=== PATIENT | male | born 1925 | race Caucasian/White ===

== ENCOUNTER 2016-11-02 13:32 | Emergency (ER) | payer MEDICARE ==
[~2016-11-02] VITALS: Ht 185.4 cm; Wt 55.0 kg
[2016-11-02 13:32] VITALS: Ht 185.4 cm; Wt 55.0 kg
--- OUTSIDE RECORDS SUMMARY | 2016-11-02 13:40 | XMS REPORT | Referral Summary ---
Author Author [facility] Organization [facility] Address Unknown Phone Unavailable Care Team Providers Care Microsoft Exchange Administrator Name Role Phone Allan James Primary Care Physician [phone] Encounter VC Date(s): 03/07/15 - 03/07/15 [facility] [address] [place] [id number] [facility] Discharge Diagnosis: Hypothyroid Discharge Disposition: 01-Home or Self Care Attending Physician: Randolph Langston MD Admitting Physician: Randolph Langston MD Vital Signs Most recent to 1 oldest [Reference Range]: Peripheral Pulse 75 bpm Rate [60-100 bpm] (03/07/15 11:15 AM) Blood Pressure 140/80 mmHg [90-140/60-90 mmHg] (03/07/15 11:15 AM) Problem List Condition Effective Dates Status Health Status Informant Hay fever(Confirmed) Resolved IBS(Confirmed) Resolved Obesity(Confirmed) Active patient Osteoarthritis(Confi Resolved rmed) UTI(Confirmed) Resolved Varicella Resolved zoster(Confirmed) Allergies, Adverse Reactions, Alerts Substance Reaction Severity Status acetaminophen Active HYDROcodone Active Medications citalopram 10 mg oral tablet 1 tabs, Oral, Daily, # 30 tabs, 0 Refill(s) Start Date: 02/24/14 Status: Ordered Citracal + D Oral, BID, 0 Refill(s) Start Date: 02/24/14 Status: Ordered Lecithin-Softgels mg, Oral, Daily, 0 Refill(s) Start Date: 02/24/14 Status: Ordered Lipitor 40 mg oral tablet 1 tabs, Oral, Daily, # 30 tabs, 0 Refill(s) Start Date: 02/24/14 Status: Ordered multivitamin Daily, 0 Refill(s) Start Date: 02/24/14 Status: Ordered PriLOSEC 20 mg oral delayed release capsule 1 caps, Oral, Daily, # 30 caps, 0 Refill(s) Start Date: 02/24/14 Status: Ordered Synthroid 50 mcg (0.05 mg) oral tablet See Instructions, TAKE ONE TABLET BY MOUTH EVERY MORNING, # 90 tabs, 9 Refill(s) , [facility], eRx: [facility] #[id number], TAKE ONE TABLET BY MOUTH EVERY MORNING Start Date: 06/14/14 Status: Ordered Vagifem 10 mcg vaginal tablet Vaginal, 2x/Wk, 0 Refill(s) Start Date: 02/24/14 Status: Ordered Results No data available for this section Immunizations No data available for this section Procedures No data available for this section Social History Social History Type Response Smoking Status Never smoker Assessment and Plan Extracted from: Title: Office Visit Note Author: Randolph Langston MD Date: 03/07/15 Assessment/Plan Post ablation hypothyroidism. Plan: Continue Synthroid 50 g daily. Monitor thyroid function tests and titrate Synthroid as indicated. Proper way of taking thyroid medication to optimize absorption explained. Assured about stable and unremarkable thyroid bed exam today. Return to clinic again in one year, sooner if with new problems. Addendum: Patient's blood pressure registered at 140/80. This was repeated with the same reading of 140/80. I suggested getting a blood pressure meter and start checking herself at least twice daily. She can forward readings to Dr. James if systolic persists to be in the 140 rangeand diastolic in the 90 range. Regular exercise and healthier dietary choices encouraged. Advised sodium intake in moderation. Anti-hypertensive regimen may need to be initiated down the road No qualifying data available. Questions addressed. Extracted from: Title: Ambulatory Patient Education Author: Randolph Langston MD Date: 03/07/15 Family Medicine Hypothyroidism The thyroid is a large gland located in the lower front of your neck. The thyroid gland helps control metabolism. Metabolism is how your body handles food. It controls metabolism with the hormone thyroxine. When this gland is underactive (hypothyroid), it produces too little hormone. CAUSES These include: Absence or destruction of thyroid tissue. Goiter due to iodine deficiency. Goiter due to medications. Congenital defects (since ). Problems with the pituitary. This causes a lack of TSH (thyroid stimulating hormone). This hormone tells the thyroid to flange turner more hormone. SYMPTOMS Lethargy (feeling as though you have no energy) Cold intolerance Weight gain (in spite of normal food intake) Dry skin Coarse hair Menstrual irregularity (if severe, may lead to infertility) Slowing of thought processes Cardiac problems are also caused by insufficient amounts of thyroid hormone. Hypothyroidism in the is cretinism, and is an extreme form. It is important that this form be treated adequately and immediately or it will lead rapidly to retarded physical and mental development. DIAGNOSIS To prove hypothyroidism, your caregiver may do blood tests and ultrasound tests. Sometimes the signs are hidden. It may be necessary for your caregiver to watch this illness with blood tests either before or after diagnosis and treatment. TREATMENT Low levels of thyroid hormone are increased by using synthetic thyroid hormone. This is a safe, effective treatment. It usually takes about four weeks to gain the full effects of the medication. After you have the full effect of the medication, it will generally take another four weeks for problems to leave. Your caregiver may start you on low doses. If you have had heart problems the dose may be gradually increased. It is generally not an emergency to get rapidly to normal. HOME CARE INSTRUCTIONS Take your medications as your caregiver suggests. Let your caregiver know of any medications you are taking or start taking. Your caregiver will help you with dosage schedules. As your condition improves, your dosage needs may increase. It will be necessary to have continuing blood tests as suggested by your caregiver. Report all suspected medication side effects to your caregiver. SEEK MEDICAL CARE IF: Seek medical care if you develop: Sweating. Tremulousness (tremors). Anxiety. Rapid weight loss. Heat intolerance. Emotional swings. Diarrhea. Weakness. SEEK IMMEDIATE MEDICAL CARE IF: You develop chest pain, an irregular heart beat (palpitations ), or a rapid heart beat. MAKE SURE YOU: Understand these instructions. Will watch your condition. Will get help right away if you are not doing well or get worse. Document Released: 08/23/2006 Document Revised: 11/14/2012 Document Reviewed: [employer] Patient Information 2014 [employer]. No follow up information was provided.
--- OUTSIDE RECORDS SUMMARY | 2016-11-02 13:41 | XMS REPORT | Continuity of Care Document ---
Author Author [facility] Organization [facility] Address Unknown Phone Unavailable Support Name Relationship Address Phone Micah Chen Caregiver [address] [place] [address] JESUS MANUEL ARAUJO [place] [address] Insurance Providers Payer Name Policy Number Subscriber Name Relationship [employer] [id number] Primitivo Yip 18 Self / Same As Patient [employer] [id number] Primitivo Yip 18 Self / Same As Patient Problems Active Problems Medical Problem Onset Date Status COPD (chronic obstructive pulmonary disease) Unknown Acute Falling Unknown Acute Fracture, rib Unknown Acute Nausea & vomiting Unknown Acute Pain Unknown Acute Prostate cancer Unknown Acute Repeated falls Unknown Acute Swelling of face 01/09/2015 Acute UTI (urinary tract infection) Unknown Acute Medications Current Home Medications Medication Dose Units Route Directions Days/Qty Instructions Start Date Aspirin 81 Mg 81 Mg Oral Daily @89901/09/15 Guaifenesin 1,200 Mg 1,200 Mg Oral Every 12 Hours 01/09/15 Albuterol Sulfate 18 Gm 2 Puffs Inhalation Every 4-6 Hours As Needed 01/09/15 Albuterol Sulfate 2.5 Mg/3 Ml 2.5 Mg Nebulizer Three Times A Day 02/18 Budesonide 0.5 Mg/2 Ml 0.5 Mg Nebulizer Twice A Day 01/09/15 Niacin 500 Mg 2 Tab Oral Daily @89901/09/15 Metoprolol Tartrate 100 Mg 100 Mg Oral Daily @89901/09/15 Ondansetron 4 Mg 4 Mg Oral Every 6 Hours for Nausea 04/21/16 Nitrofurantoin Monohyd/M-Cryst 100 Mg 100 Mg Oral Twice A Day 04/29 Past Home Medications Medication Directions Ordered Status Trimethoprim/Sulfamethoxazole 1 Each Tablet, 1 Each Oral Daily @899 Discontinued Cephalexin 500 Mg Capsule, 500 Mg Oral Three Times A Day 01/09/15 Discontinued Ciprofloxacin Hcl 500 Mg Tablet, 500 Mg Oral Twice A Day 01/16/16 Discontinued Ciprofloxacin Hcl 500 Mg Tablet, 500 Mg Oral Twice A Day 03/24/16 Discontinued Trimethoprim/Sulfamethoxazole 1 Each Tablet, 1 Each Oral Twice A Day Discontinued Ciprofloxacin Hcl 500 Mg Tablet, 500 Mg Oral Twice A Day 04/15/16 Discontinued Hydrocodone/Acetaminophen 5/325 1 Each Tablet, 1 Tab Oral Every 6 Hours as needed for Pain 04/15/16 Discontinued Tramadol Hcl 50 Mg Tablet, 50 Mg Oral Three Times A Day as needed for Pain Discontinued Social History No social history. Hospital Discharge Instructions Current inpatient/outpatient. Discharge instructions are currently unavailable. Plan of Care Prescriptions Functional Status No functional status results. Allergies, Adverse Reactions, Alerts Allergen Type Severity Reaction Status Last Updated Sulfonylureas Allergy Unknown Active 09/04/08 Amoxicillin Allergy Unknown Active 09/04/08 Immunizations Name Given Type ZOSTAVAX 04/08/15 Administered Vital Signs Ambulatory Vital Signs Vital Response Date/Time Height 6 ft 04/21/2016 2:05pm Weight 142 lbs 4 oz 04/21/2016 2:05pm Temperature, Temporal 98.3 degrees F 04/21/2016 2:05pm Blood Pressure, Sitting, Left Arm 130/80 mm Hg 04/21/2016 2:05pm Pulse Rate 68 bpm 04/21/2016 2:05pm Respiration Rate 16 bpm 04/21/2016 2:05pm Body Surface Area 1.80 m2 04/21/2016 2:05pm Body Mass Index 19.3 kg/m2 04/21/2016 2:05pm Pulse Oximetry Pulse Oximetry 04/21/2016 2:05pm Results Laboratory Results Test Name Result Units Flags Reference Collection Date/Time Result Date/ Time Comments White Blood Count 13.39 K/mm3 H 4.5-10.5 02/28/2011 6:47am 02/28/2011 7: 12am Red Blood Count 3.01 M/mm3 L 4.60-6.00 02/28/2011 6:47am 02/28/2011 7: 12am Hemoglobin 9.7 gm/dl L 14.0-18.0 02/28/2011 6:47am 02/28/2011 7:12am Hematocrit 29.1 % L 40-54 02/28/2011 6:47am 02/28/2011 7:12am Mean Corpuscular Volume 96.7 fl H 80-94 02/28/2011 6:47am 02/28/2011 7: 12am Mean Corpuscular Hemoglobin 32 pg 26-32 02/28/2011 6:47am 02/28/2011 7: 12am Mean Corpuscular Hemoglobin Concent 33 g/dl 32-36 02/28/2011 6:47am 7:12am Red Cell Distribution-SD 43.2 fL 35.1-43.9 02/28/2011 6:472010 7:12am RDW Coefficient of Variation 12.7 % 11.5-14.5 02/28/2011 6:472010 7:12am Platelet Count 120 K/mm3 L 150-450 02/28/2011 6:4702/28/2011 7:12am Mean Platelet Volume 10.2 fl 9.4-12.4 02/28/2011 6:4702/28/2011 7: 12am Neutrophils (%) (Auto) 81.0 % H 50-70 02/28/2011 6:4702/28/2011 7: 12am Lymphocytes (%) (Auto) 8.8 % L 18-42 02/28/2011 6:4702/28/2011 7: 12am Monocytes (%) (Auto) 9.9 % 2-11 02/28/2011 6:4702/28/2011 7:12am Eosinophils (%) (Auto) 0.2 % L 1-3 02/28/2011 6:4702/28/2011 7:12am Basophils (%) (Auto) 0.1 % 0-2 02/28/2011 6:4702/28/2011 7:12am Neutrophils # (Auto) 10.8 H 2-8 02/28/2011 6:4702/28/2011 7:12am Lymphocytes # (Auto) 1.2 1-5 02/28/2011 6:4702/28/2011 7:12am Monocytes # (Auto) 1.3 H 0.1-1.0 02/28/2011 6:47am 02/28/2011 7:12am Eosinophils # (Auto) 0.0 0-0.4 02/28/2011 6:47am 02/28/2011 7:12am Basophils # (Auto) 0.0 K/mm3 0-0.2 02/28/2011 6:47am 02/28/2011 7:12am Platelet Estimate NORMAL NORMAL 02/28/2011 6:47am 02/28/2011 7:44am Basophilic Stippling 1+ 02/28/2011 6:47am 02/28/2011 7:44am Random Glucose 102 mg/dL 70-110 02/28/2011 6:47am 02/28/2011 7:41am Blood Urea Nitrogen 7 mg/dL 7-18 02/28/2011 6:47am 02/28/2011 7:41am Creatinine 0.9 mg/dL 0.6-1.3 02/28/2011 6:47am 02/28/2011 7:41am BUN/Creatinine Ratio 7.8 L 12-02/28/2011 6:47am 02/28/2011 7:41am Sodium Level 136 mEq/L 135-155 02/28/2011 6:47am 02/28/2011 7:41am Potassium Level 3.5 mEq/L 3.5-5.1 02/28/2011 6:47am 02/28/2011 7:41am Chloride Level 101 mEq/L 98-107 02/28/2011 6:47am 02/28/2011 7:41am Carbon Dioxide Level 27 mEq/L 21-32 02/28/2011 6:47am 02/28/2011 7: 41am Anion Gap 11.5 10-20 02/28/2011 6:47am 02/28/2011 7:41am Calcium Level 8.6 mg/dL 8.2-10.0 02/28/2011 6:47am 02/28/2011 7:41am Glomerular Filtration Rate Calc 86 02/28/2011 6:47am 02/28/2011 7: 41am At increased risk Risk factors for CKD are present but w/o >90 markers of kidney damage 1 Kidney damage w/ normal or >90 increased GFR 2 Kidney damage w/ mild reduc- 60-89 tion of GFR 3 Moderate reduction of GFR 30-59 4 Severe reduction of GFR 15-29 5 Kidney Failure <15 Total Protein 6.3 gm/dL L 6.4-8.2 02/28/2011 6:47am 02/28/2011 7:41am Albumin 3.0 gm/dL L 3.4-5.0 02/28/2011 6:47am 02/28/2011 7:41am Albumin/Globulin Ratio 0.9 02/28/2011 6:47am 02/28/2011 7:41am Total Bilirubin 0.75 mg/dL 0.2-1.0 02/28/2011 6:47am 02/28/2011 7:41am Aspartate Amino Transf (AST/SGOT) 24 U/L 15-37 02/28/2011 6:47am 2010 7:41am Alanine Aminotransferase (ALT/SGPT) 27 U/L L 30-65 02/28/2011 6:47am 7:41am Alkaline Phosphatase 84.0 U/L 50-136 02/28/2011 6:47am 02/28/2011 7: 41am Globulin 3.3 gm/dL 2.0-4.5 02/28/2011 6:47am 02/28/2011 7:41am White Blood Count 9.13 K/mm3 4.5-10.5 01/09/2015 9:01/09/2015 11: 40am Red Blood Count 3.90 M/mm3 L 4.60-6.00 01/09/2015 9:01/09/2015 11: 40am Hemoglobin 13.2 gm/dl L 14.0-18.0 01/09/2015 9:01/09/2015 11:40am Hematocrit 38.9 % L 40-54 01/09/2015 9:01/09/2015 11:40am Mean Corpuscular Volume 99.7 fl H 80-94 01/09/2015 9:01/09/2015 11: 40am Mean Corpuscular Hemoglobin 34 pg H 26-32 01/09/2015 9:01/09/2015 11:40am Mean Corpuscular Hemoglobin Concent 34 g/dl 32-36 01/09/2015 9:02/2015 11:40am Red Cell Distribution-SD 45.1 fL H 35.1-43.9 01/09/2015 9:2014 11:40am RDW Coefficient of Variation 12.8 % 11.5-14.5 01/09/2015 9:2014 11:40am Platelet Count 177 K/mm3 150-450 01/09/2015 9:01/09/2015 11:40am Mean Platelet Volume 9.8 fl 9.4-12.4 01/09/2015 9:01/09/2015 11: 40am Neutrophils (%) (Auto) 72.5 % H 50-70 01/09/2015 9:01/09/2015 11: 40am Lymphocytes (%) (Auto) 17.0 % L 18-42 01/09/2015 9:01/09/2015 11: 40am Monocytes (%) (Auto) 8.0 % 2-11 01/09/2015 9:01/09/2015 11:40am Eosinophils (%) (Auto) 2.2 % 1-3 01/09/2015 9:01/09/2015 11:40am Basophils (%) (Auto) 0.3 % 0-2 01/09/2015 9:01/09/2015 11:40am Neutrophils # (Auto) 6.6 2-8 01/09/2015 9:01/09/2015 11:40am Lymphocytes # (Auto) 1.6 1-5 01/09/2015 9:01/09/2015 11:40am Monocytes # (Auto) 0.7 0.1-1.0 01/09/2015 9:01/09/2015 11:40am Eosinophils # (Auto) 0.2 0-0.4 01/09/2015 9:01/09/2015 11:40am Basophils # (Auto) 0.0 K/mm3 0-0.2 01/09/2015 9:01/09/2015 11: 40am Random Glucose 79 mg/dL 70-110 01/09/2015 9:01/09/2015 11:07am Blood Urea Nitrogen 11 mg/dL 7-18 01/09/2015 9:01/09/2015 11:07am Creatinine 1.2 mg/dL 0.6-1.3 01/09/2015 9:01/09/2015 11:07am BUN/Creatinine Ratio 9.2 L 12-30 01/09/2015 9:01/09/2015 11:07am Sodium Level 130 mEq/L L 135-155 01/09/2015 9:01/09/2015 11:07am Potassium Level 4.9 mEq/L 3.5-5.1 01/09/2015 9:01/09/2015 11:07am Chloride Level 94 mEq/L L 98-107 01/09/2015 9:01/09/2015 11:07am Carbon Dioxide Level 32 mEq/L 21-32 01/09/2015 9:01/09/2015 11: 07am Anion Gap 8.9 L 10-20 01/09/2015 9:01/09/2015 11:07am Calcium Level 8.7 mg/dL 8.2-10.0 01/09/2015 9:01/09/2015 11:07am Glomerular Filtration Rate Calc 61 01/09/2015 9:24am 01/09/2015 11: 07am At increased risk Risk factors for CKD are present but w/o >90 markers of kidney damage 1 Kidney damage w/ normal or >90 increased GFR 2 Kidney damage w/ mild reduc- 60-89 tion of GFR 3 Moderate reduction of GFR 30-59 4 Severe reduction of GFR 15-29 5 Kidney Failure <15 Total Protein 7.6 gm/dL 6.4-8.2 01/09/2015 9:24am 01/09/2015 11:07am Albumin 3.8 gm/dL 3.4-5.0 01/09/2015 9:24am 01/09/2015 11:07am Albumin/Globulin Ratio 1.0 01/09/2015 9:24am 01/09/2015 11:07am Total Bilirubin 0.47 mg/dL 0.2-1.0 01/09/2015 9:24am 01/09/2015 11: 07am Aspartate Amino Transf (AST/SGOT) 23 U/L 15-37 01/09/2015 9:24am 2014 11:07am Alanine Aminotransferase (ALT/SGPT) 21 U/L 12-78 01/09/2015 9:24am 02/2015 11:07am NOTE REFERENCE RANGE CHANGE 03/07/12 REFERENCE RANGE CHANGE DUE TO NEW REAGENT PREVIOUS RANGE: 30-65 U/L NEW RANGE: 12-78 U/L Alkaline Phosphatase 84.0 U/L 46-116 01/09/2015 9:24am 01/09/2015 11: 07am NOTE REFERENCE RANGE CHANGE 02/08/14 REFERENCE RANGE CHANGE DUE TO NEW REAGENT PREVIOUS RANGE: 50-136 U/L NEW RANGE: 46-116 U/L Globulin 3.8 gm/dL 2.0-4.5 01/09/2015 9:24am 01/09/2015 11:07am Urine Culture Result 1 Growth detected H NONE 01/16/2016 K 2015 6:39am Urine Culture Result 3 Growth detected H NONE 01/16/2016 K 2015 6:39am Urine Culture (LAB) See Separate Report 01/16/2016 K 01/19/2016 1 :18pm Urine Culture Result 1 Growth detected H NONE 03/24/2016 8:54am 2015 7:05am Urine Culture Result 3 Growth detected H NONE 03/24/2016 8:54am 2015 7:05am Urine Culture (LAB) See Separate Report 03/24/2016 8:54am 2015 1:58pm Urine Color STRAW STRAW 04/08/2016 9:23am 04/08/2016 9:44am Urine Appearance CLEAR CLEAR 04/08/2016 9:23am 04/08/2016 9:44am Urine Glucose (UA) NEGATIVE mg/dL NEGATIVE 04/08/2016 9:23am 2015 9:44am Urine Bilirubin NEGATIVE NEGATIVE 04/08/2016 9:23am 04/08/2016 9: 44am Urine Ketones NEGATIVE mg/dL NEGATIVE 04/08/2016 9:23am 04/08/2016 9: 44am Urine Specific [place] 1.015 1.005-1.035 04/08/2016 9:23am 2015 9:44am Urine Occult Blood 1+ SMALL H NEGATIVE 04/08/2016 9:2304/08/2016 9: 44am Urine pH 7.0 04/08/2016 9:23am 04/08/2016 9:44am Urine Protein TRACE mg/dL H NEGATIVE 04/08/2016 9:23am 04/08/2016 9: 44am Urine Urobilinogen 0.2 E.U./dL NORMAL 04/08/2016 9:23am 04/08/2016 9: 44am Urine Nitrate NEGATIVE NEGATIVE 04/08/2016 9:23am 04/08/2016 9:44am Urine Leukocyte Esterase 1+ SMALL H NEGATIVE 04/08/2016 9:23am 2015 9:44am URINE HAS BEEN SENT FOR CULTURE Urine RBC 0-1 /hpf H NONE 04/08/2016 9:23am 04/08/2016 9:44am Urine WBC 3-5 /hpf H NONE 04/08/2016 9:23am 04/08/2016 9:44am Urine Squamous Epithelial Cells NONE /lpf OCCASSIONAL 04/08/2016 9:23am 04/08/2016 9:44am Urine Bacteria MANY /hpf H NONE 04/08/2016 9:23am 04/08/2016 9:44am Urine Mucus FEW /lpf H NONE 04/08/2016 9:23am 04/08/2016 9:44am Urine Yeast FEW /hpf H NONE 04/08/2016 9:23am 04/08/2016 9:44am Urine Culture Result 1 No Growth at 12hrs NONE 04/08/2016 9:23am 12/2015 6:08am Urine Culture Result 2 Growth detected H NONE 04/08/2016 9:23am 2015 5:02pm Urine Culture Result 3 Growth detected H NONE 04/08/2016 9:23am 2015 5:02pm Urine Culture (LAB) See Separate Report 04/08/2016 9:23am 2015 4:15pm URINE FOR CYTOLOGY See Separate Report 04/08/2016 11:32am 2015 10:17am White Blood Count 8.30 K/mm3 4.5-10.5 04/18/2016 12:40pm 04/18/2016 12: 55pm Red Blood Count 3.90 M/mm3 L 4.60-6.00 04/18/2016 12:40pm 04/18/2016 12: 55pm Hemoglobin 12.5 gm/dl L 14.0-18.0 04/18/2016 12:40pm 04/18/2016 12:55pm Hematocrit 36.6 % L 40-54 04/18/2016 12:40pm 04/18/2016 12:55pm Mean Corpuscular Volume 93.8 fl 80-94 04/18/2016 12:40pm 04/18/2016 12: 55pm Mean Corpuscular Hemoglobin 32 pg 26-32 04/18/2016 12:40pm 04/18/2016 12:55pm Mean Corpuscular Hemoglobin Concent 34 g/dl 32-36 04/18/2016 12:40pm 12:55pm Red Cell Distribution-SD 44.3 fL H 35.1-43.9 04/18/2016 12:40pm 2015 12:55pm RDW Coefficient of Variation 13.2 % 11.5-14.5 04/18/2016 12:40pm 2015 12:55pm Platelet Count 179 K/mm3 150-450 04/18/2016 12:40pm 04/18/2016 12:55pm Mean Platelet Volume 9.2 fl L 9.4-12.4 04/18/2016 12:40pm 04/18/2016 12: 55pm Neutrophils (%) (Auto) 77.5 % H 50-70 04/18/2016 12:40pm 04/18/2016 12: 55pm Lymphocytes (%) (Auto) 11.0 % L 18-42 04/18/2016 12:40pm 04/18/2016 12: 55pm Monocytes (%) (Auto) 10.4 % 2-11 04/18/2016 12:40pm 04/18/2016 12:55pm Eosinophils (%) (Auto) 1.0 % 1-3 04/18/2016 12:40pm 04/18/2016 12:55pm Basophils (%) (Auto) 0.1 % 0-2 04/18/2016 12:40pm 04/18/2016 12:55pm Neutrophils # (Auto) 6.4 2-8 04/18/2016 12:40pm 04/18/2016 12:55pm Lymphocytes # (Auto) 0.9 L 1-5 04/18/2016 12:40pm 04/18/2016 12:55pm Monocytes # (Auto) 0.9 0.1-1.0 04/18/2016 12:40pm 04/18/2016 12:55pm Eosinophils # (Auto) 0.1 0-0.4 04/18/2016 12:40pm 04/18/2016 12:55pm Basophils # (Auto) 0.0 K/mm3 0-0.2 04/18/2016 12:40pm 04/18/2016 12: 55pm Urine Color YELLOW STRAW 04/18/2016 12:30pm 04/18/2016 12:58pm Urine Appearance SL CLOUDY CLEAR 04/18/2016 12:30pm 04/18/2016 12: 58pm Urine Glucose (UA) NEGATIVE mg/dL NEGATIVE 04/18/2016 12:30pm 2015 12:58pm Urine Bilirubin NEGATIVE NEGATIVE 04/18/2016 12:30pm 04/18/2016 12: 58pm Urine Ketones NEGATIVE mg/dL NEGATIVE 04/18/2016 12:30pm 04/18/2016 12: 58pm Urine Specific [place] 1.015 1.005-1.035 04/18/2016 12:30pm 2015 12:58pm Urine Occult Blood 1+ SMALL H NEGATIVE 04/18/2016 12:30pm 04/18/2016 12:58pm Urine pH 7.0 04/18/2016 12:30pm 04/18/2016 12:58pm Urine Protein 1+ 30 mg/dL mg/dL H NEGATIVE 04/18/2016 12:30pm 2015 12:58pm Urine Urobilinogen 1.0 E.U./dL H NORMAL 04/18/2016 12:30pm 04/18/2016 12 :58pm Urine Nitrate NEGATIVE NEGATIVE 04/18/2016 12:30pm 04/18/2016 12: 58pm Urine Leukocyte Esterase 3+ LARGE H NEGATIVE 04/18/2016 12:30pm 2015 12:58pm URINE HAS BEEN SENT FOR CULTURE Urine RBC 1-2 /hpf H NONE 04/18/2016 12:30pm 04/18/2016 12:58pm Urine WBC 15-20 /hpf H NONE 04/18/2016 12:30pm 04/18/2016 12:58pm Urine Squamous Epithelial Cells NONE /lpf OCCASSIONAL 04/18/2016 12: 30pm 04/18/2016 12:58pm Urine Bacteria MODERATE /hpf H NONE 04/18/2016 12:30pm 04/18/2016 12: 58pm Urine Amorphous Sediment FEW /hpf H NONE 04/18/2016 12:30pm 04/18/2016 12:58pm Random Glucose 84 mg/dL 70-110 04/18/2016 12:40pm 04/18/2016 1:06pm Blood Urea Nitrogen 16 mg/dL 7-18 04/18/2016 12:40pm 04/18/2016 1:06pm Creatinine 1.03 mg/dL 0.550-1.3 04/18/2016 12:40pm 04/18/2016 1:06pm NOTE REFERENCE RANGE CHANGE 03/05/15 REFERENCE RANGE CHANGE DUE TO NEW REAGENT PREVIOUS RANGE: 0.6-1.3 mg/dL NEW RANGE: 0.550-1.3 mg/dL BUN/Creatinine Ratio 15.53 1230 04/18/2016 12:40pm 04/18/2016 1: 06pm Sodium Level 121 mEq/L L 135-155 04/18/2016 12:40pm 04/18/2016 1:06pm Potassium Level 4.3 mEq/L 3.5-5.1 04/18/2016 12:40pm 04/18/2016 1:06pm Chloride Level 88 mEq/L L 98-107 04/18/2016 12:40pm 04/18/2016 1:06pm Carbon Dioxide Level 26 mEq/L 21-32 04/18/2016 12:40pm 04/18/2016 1: 06pm Anion Gap 11.3 10-20 04/18/2016 12:40pm 04/18/2016 1:06pm Calcium Level 8.5 mg/dL 8.2-10.0 04/18/2016 12:40pm 04/18/2016 1:06pm Glomerular Filtration Rate Calc 72 04/18/2016 12:40pm 04/18/2016 1: 06pm At increased risk Risk factors for CKD are present but w/o >90 markers of kidney damage 1 Kidney damage w/ normal or >90 increased GFR 2 Kidney damage w/ mild reduc- 60-89 tion of GFR 3 Moderate reduction of GFR 30-59 4 Severe reduction of GFR 15-29 5 Kidney Failure <15 Total Protein 7.4 gm/dL 6.4-8.2 04/18/2016 12:40pm 04/18/2016 1:06pm Albumin 3.6 gm/dL 3.4-5.0 04/18/2016 12:40pm 04/18/2016 1:06pm Albumin/Globulin Ratio 0.9 04/18/2016 12:40pm 04/18/2016 1:06pm Total Bilirubin 0.64 mg/dL 0.2-1.0 04/18/2016 12:40pm 04/18/2016 1: 06pm Aspartate Amino Transf (AST/SGOT) 64 U/L H 15-37 04/18/2016 12:40pm 1:06pm Alanine Aminotransferase (ALT/SGPT) 57 U/L 12-78 04/18/2016 12:40pm 1:06pm Alkaline Phosphatase 111.0 U/L 46-116 04/18/2016 12:40pm 04/18/2016 1: 06pm Urine Culture Result 1 No Growth at 12hrs NONE 04/18/2016 12:30pm 7:06am Urine Culture Result 2 No Growth @ 24hrs NONE 04/18/2016 12:30pm 6:05pm Urine Culture Result 3 Growth detected H NONE 04/18/2016 12:30pm 04/20 6:53am Globulin 3.8 gm/dL 2.0-4.5 04/18/2016 12:40pm 04/18/2016 1:06pm Urine Culture (LAB) See Separate Report 04/18/2016 12:30pm 2015 1:18pm Urine Color YELLOW STRAW 04/29/2016 12:02pm 04/29/2016 12:17pm Urine Appearance CLOUDY CLEAR 04/29/2016 12:02pm 04/29/2016 12:17pm Urine Glucose (UA) NEGATIVE mg/dL NEGATIVE 04/29/2016 12:02pm 2015 12:17pm Urine Bilirubin NEGATIVE NEGATIVE 04/29/2016 12:02pm 04/29/2016 12: 17pm Urine Ketones NEGATIVE mg/dL NEGATIVE 04/29/2016 12:02pm 04/29/2016 12: 17pm Urine Specific [place] 1.020 1.005-1.035 04/29/2016 12:02pm 2015 12:17pm Urine Occult Blood 1+ SMALL H NEGATIVE 04/29/2016 12:02pm 04/29/2016 12:17pm Urine pH 7.0 04/29/2016 12:02pm 04/29/2016 12:17pm Urine Protein 2+ 100 mg/dL mg/dL H NEGATIVE 04/29/2016 12:02pm 2015 12:17pm Urine Urobilinogen 1.0 E.U./dL H NORMAL 04/29/2016 12:02pm 04/29/2016 12 :17pm Urine Nitrate POSITIVE H NEGATIVE 04/29/2016 12:02pm 04/29/2016 12: 17pm URINE HAS BEEN SENT FOR CULTURE Urine Leukocyte Esterase 2+ MODERATE H NEGATIVE 04/29/2016 12:02pm 12:17pm URINE HAS BEEN SENT FOR CULTURE Urine RBC 15-20 /hpf H NONE 04/29/2016 12:02pm 04/29/2016 12:17pm Urine WBC 50+ /hpf H NONE 04/29/2016 12:02pm 04/29/2016 12:17pm Urine Squamous Epithelial Cells OCCASSIONAL /lpf OCCASSIONAL 04/29/2016 12:02pm 04/29/2016 12:17pm Urine Bacteria MODERATE /hpf H NONE 04/29/2016 12:02pm 04/29/2016 12: 17pm Urine Hyaline Casts 1-2 /lpf H NONE 04/29/2016 12:02pm 04/29/2016 12: 17pm Urine Fine Granular Casts 0-1 /lpf H NONE 04/29/2016 12:02pm 04/29/2016 12:17pm Urine Mucus OCCASSIONAL /lpf H NONE 04/29/2016 12:02pm 04/29/2016 12: 17pm Urine Culture Result 1 Growth detected H NONE 04/29/2016 12:02pm 04/30 6:22am Urine Culture Result 3 Growth detected H NONE 04/29/2016 12:02pm 04/30 6:22am Urine Culture (LAB) See Separate Report 04/29/2016 12:02pm 2015 1:44am Procedures No known history of procedures. Encounters Encounter Location Arrival/Admit Date Discharge/Depart Date Attending Provider Registered Recurring [facility] 05/04/16 7:26pm Micah Chen Registered Clinic [facility] 04/29/16 11:41am Micah Chen Office Visit [facility] 04/21/16 2:00pm Micah Chen PA Registered Practice [facility] 04/21/16 2:00pm Micah Chen PA Discharged Inpatient (obs) [facility] 04/18/16 1:50pm 6:00pm Librado Perales DO Departed Emergency Room [facility] 04/18/16 10:58am 1:50pm Librado Perales DO Office Visit [facility] 04/15/16 1:00pm Micah Chen Departed Clinic [facility] 04/15/16 12:26pm 04/15/16 11: 59pm Micah Chen PA Departed Clinic [facility] 04/08/16 11:18am 04/08/16 11: 59pm Riya Gallegos Departed Clinic [facility] 04/08/16 9:20am 04/08/16 11: 59pm Riya Gallegos Office Visit [facility] 04/08/16 8:30am Riya Gallegos Departed Clinic [facility] 03/24/16 8:54am 03/24/16 11: 59pm Micah Chen PA Departed Clinic [facility] 03/24/16 8:34am 03/24/16 11: 59pm Micah Chen PA Office Visit [facility] 03/24/16 8:30am Micah Chen PA Departed Clinic [facility] 01/16/16 2:37pm 01/16/16 11: 59pm Micah Chen PA Departed Clinic [facility] 01/16/16 2:24pm 01/16/16 11: 59pm Micah Chen PA Office Visit [facility] 01/16/16 2:15pm Micah Chen PA Departed Clinic [facility] 01/09/15 9:18am 01/09/15 11: 59pm Micah Chen PA Office Visit [facility] 01/09/15 8:45am Micah Chen PA Office Visit [facility] 03/16/11 10:00am Micah Chen PA Discharged Inpatient (obs) [facility] 02/28/11 2:00am 31/07 11:50am Johnathon Dallas MD Departed Emergency Room [facility] 02/28/11 12:46am 2:00am Johnathon Dallas MD Registered Surgical Day Care [facility] 10/12/07 1:46pm
--- OUTSIDE RECORDS SUMMARY | 2016-11-02 13:41 | XMS REPORT | Continuity of Care Document ---
Author Author [facility] Organization [facility] Address Unknown Phone Unavailable Support Name Relationship Address Phone Librado Perales DO Caregiver [address] [place] [address] JESUS MANUEL [place] [address] Insurance Providers Payer Name Policy Number Subscriber Name Relationship s Medicare [id number] Primitivo Yip 18 Self / Same As Patient [facility] Employee [facility] [id number] Primitivo Yip 18 Self / Same As Patient Chief Complaint and Reason for Visit Reason for Visit Nausea & vomiting Pain Prostate cancer Repeated falls Swelling of face UTI (urinary tract infection) Problems Active Problems Medical Problem Onset Date [...] Mg Oral Every 6 Hours for Nausea 10 04/16/16 Past Home Medications Medication Directions Ordered Status [...] as needed for Pain Discontinued Social History Query Response Start Date Stop Date Smoking Status Current every day smoker Hospital Discharge Instructions PHYSICIAN DISCHARGE ORDERS Homecare Instructions ACTIVITY ORDERS: Activity Comment: USE WALKER FOR WALKING AT ALL TIMES. Activity: Normal activity as carla Other DIET ORDERS: Diet: Other Comment: REGULAR DIET WITH ENSURE SHAKE WITH BREAKFAST AND TWICE A DAY BETWEEN MEALS. Home Health: Home Health: [facility] WEIGHT MONITORING: Weight Monitoring: Weekly Take Wt. Log to visit Plan of Care Discharge Date 04/19/16 6:00pm Disposition HOME with HOME HEALTH SERVICES Instructions/Education Provided Urinary Tract Infection in Men (DC) Fall Prevention (DC) COPD Exacerbation, Tobacco Curer (GEN) Prescriptions See Medication Section Referrals MAGALY TABOR M.D. (Medical) - IN 2 DAYS Address: [address] [place] [id number] Reason(s) for Referral: Repeated falls Prostate cancer COPD (chronic obstructive pulmonary disease) Pain Fracture, rib UTI (urinary tract infection) Care Plan and Goals Functional Status No functional status results. Allergies, Adverse Reactions, Alerts Allergen Type Severity Reaction Status Last Updated Sulfonylureas Allergy Unknown Active 09/04/08 Amoxicillin Allergy Unknown Active 09/04/08 Immunizations Name Given Type ZOSTAVAX 04/08/15 Administered Vital Signs Acute Vital Signs Vital Response Date/Time Height 6 ft 0 in Weight 131 lb Body Mass Index 17.8 kg/m^2 Ambulatory Vital Signs Vital Response Date/Time Height 6 ft 04/15/2016 12:50pm Weight 143 lbs 4 oz 04/15/2016 12:50pm Temperature, Temporal 97.9 degrees F 04/15/2016 12:50pm Blood Pressure, Sitting, Left Arm 124/80 mm Hg 04/15/2016 12:50pm Pulse Rate 64 bpm 04/15/2016 12:50pm Respiration Rate 14 bpm 04/15/2016 12:50pm Body Surface Area 1.81 m2 04/15/2016 12:50pm Body Mass Index 19.4 kg/m2 04/15/2016 12:50pm Pulse Oximetry Pulse Oximetry 04/15/2016 12:50pm Results Laboratory Results Test Name Result Units [...] Red Cell Distribution-SD 43.2 fL 35.1-43.9 02/28/2011 6:47am 2010 7:12am RDW Coefficient of Variation 12.7 % 11.5-14.5 02/28/2011 6:47am 2010 7:12am Platelet Count 120 K/mm3 L 150-450 02/28/2011 6:47am 02/28/2011 7:12am Mean Platelet Volume 10.2 fl 9.4-12.4 02/28/2011 6:47am 02/28/2011 7: 12am Neutrophils (%) (Auto) 81.0 % H 50-70 02/28/2011 6:47am 02/28/2011 7: 12am Lymphocytes (%) (Auto) 8.8 % L 18-42 02/28/2011 6:47am 02/28/2011 7: 12am Monocytes (%) (Auto) 9.9 % 2-11 02/28/2011 6:47am 02/28/2011 7:12am Eosinophils (%) (Auto) 0.2 % L 1-3 02/28/2011 6:47am 02/28/2011 7:12am Basophils (%) (Auto) 0.1 % 0-2 02/28/2011 6:47am 02/28/2011 7:12am Neutrophils # (Auto) 10.8 H 2-8 02/28/2011 6:47am 02/28/2011 7:12am Lymphocytes # (Auto) 1.2 1-5 02/28/2011 6:47am 02/28/2011 7:12am Monocytes # (Auto) 1.3 H 0.1-1.0 02/28/2011 6:47am 02/28/2011 7:12am Eosinophils # (Auto) 0.0 0-0.4 02/28/2011 6:47am 02/28/2011 7:12am Basophils # (Auto) 0.0 K/mm3 0-0.2 02/28/2011 6:47am 02/28/2011 7:12am Platelet Estimate NORMAL NORMAL 02/28/2011 6:4702/28/2011 7:44am Basophilic Stippling 1+ 02/28/2011 6:47am 02/28/2011 7:44am Random Glucose 102 mg/dL 70-110 02/28/2011 6:47am 02/28/2011 7:41am Blood Urea Nitrogen 7 mg/dL 7-18 02/28/2011 6:4702/28/2011 7:41am Creatinine 0.9 mg/dL 0.6-1.3 02/28/2011 6:4702/28/2011 7:41am BUN/Creatinine Ratio 7.8 L 12-02/28/2011 6:4702/28/2011 7:41am Sodium Level 136 mEq/L 135-155 02/28/2011 6:47am 02/28/2011 7:41am Potassium Level 3.5 mEq/L 3.5-5.1 02/28/2011 6:4702/28/2011 7:41am Chloride Level 101 mEq/L 98-107 02/28/2011 [...] 11:07am BUN/Creatinine Ratio 9.2 L 12-30 01/09/2015 9:24am 01/09/2015 11:07am Sodium Level 130 mEq/L L 135-155 01/09/2015 9:24am 01/09/2015 11:07am Potassium Level 4.9 mEq/L 3.5-5.1 01/09/2015 9:24am 01/09/2015 11:07am Chloride Level 94 mEq/L L 98-107 01/09/2015 9:24am 01/09/2015 11:07am Carbon Dioxide Level 32 mEq/L 21-32 01/09/2015 9:24am 01/09/2015 11: 07am Anion Gap 8.9 L 10-20 01/09/2015 9:24am 01/09/2015 11:07am Calcium Level 8.7 mg/dL 8.2-10.0 01/09/2015 9:24am 01/09/2015 11:07am Glomerular Filtration Rate Calc 61 01/09/2015 [...] Urine Culture (LAB) See Separate Report 01/16/2016 UNK 01/19/2016 1 :18pm Urine Culture Result 1 [...] 04/08/2016 9:23am 04/08/2016 9: 44am Urine Specific Ashley 1.015 1.005-1.035 04/08/2016 9:23am 2015 9:44am Urine Occult Blood 1+ SMALL H NEGATIVE 04/08/2016 9:23am 04/08/2016 9: 44am Urine pH 7.0 04/08/2016 9:23am [...] 04/18/2016 12:30pm 04/18/2016 12: 58pm Urine Specific Ashley 1.015 1.005-1.035 04/18/2016 12:30pm 2015 12:58pm Urine [...] NEW RANGE: 0.550-1.3 mg/dL BUN/Creatinine Ratio 15.53 09-0404/18/2016 12:40pm 04/18/2016 1: 06pm Sodium Level 121 [...] Growth @ 24hrs NONE 04/18/2016 12:30pm 6:05pm Globulin 3.8 gm/dL 2.0-4.5 04/18/2016 12:40pm 04/18/2016 1:06pm Procedures No known history of procedures. Encounters Encounter Location Arrival/Admit Date Discharge/Depart Date Attending Provider Discharged Inpatient (obs) [facility] 04/18/16 1:50pm 6:00pm Librado Perales DO Departed Emergency Room [facility] 04/18/16 10:58am 1:50pm Librado Perales DO Office Visit [facility] 04/15/16 1:00pm Micah Chen Registered Practice [facility] 04/15/16 1:00pm Micah Chen Registered Clinic [facility] 04/15/16 12:26pm Micah Chen Departed Clinic [facility] 04/08/16 11:18am 04/08/16 11: 59pm Riya Gallegos Departed Clinic [facility] 04/08/16 9:20am 04/08/16 11: 59pm Riya Gallegos Office Visit [facility] 04/08/16 8:30am Riya Gallegos Departed Clinic [facility] 03/24/16 8:54am 03/24/16 11: 59pm Micah Chen Departed Clinic [facility] 03/24/16 8:34am 03/24/16 11: 59pm Micah Chen PA Office Visit [facility] 03/24/16 8:30am Micah Chen PA Departed Clinic [facility] 01/16/16 2:37pm 01/16/16 11: 59pm Micah Chen Departed Clinic [facility] 01/16/16 2:24pm 01/16/16 11: 59pm Micah Chen PA Office Visit [facility] 01/16/16 2:15pm Micah Chen Departed Clinic [facility] 01/09/15 9:18am 01/09/15 11: 59pm Micah Chen PA Office Visit [facility] 01/09/15 8:45am Micah Chen PA Office Visit [facility] 03/16/11 10:00am Micah Chen PA Discharged Inpatient (obs) [facility] 02/28/11 2:00am 31/07 11:50am Johnathon Dallas MD Departed Emergency Room [facility] 02/28/11 12:46am 2:00am Johnathon Dallas MD Registered Surgical Day Care [facility] 10/12/07 1:46pm Recent Diagnosis Nausea & vomiting Pain Prostate cancer Repeated falls Swelling of face UTI (urinary tract infection)
--- OUTSIDE RECORDS SUMMARY | 2016-11-02 13:41 | XMS REPORT | Continuity of Care Document ---
Author Author [facility] Organization [facility] Address Unknown Phone Unavailable Support Name Relationship Address Phone FLORENTINO ERICKSON DO Caregiver [address] [place] [address] JESUS MANUEL [place] [address] Insurance Providers Payer Name Policy Number Subscriber Name Relationship Wps Medicare [id number] [employer] Yip 18 Self / Same As Patient [employer] [id number] [employer] Yip 18 Self / Same As Patient Problems Active Problems Medical Problem Onset Date Status C. difficile diarrhea Unknown Acute COPD (chronic obstructive pulmonary disease) Unknown Acute Diarrhea Unknown Acute Falling Unknown Acute Fracture, rib Unknown Acute Nausea & vomiting Unknown Acute Pain Unknown Acute Prostate cancer Unknown Acute Repeated falls Unknown Acute Swelling of face 01/09/2015 Acute UTI (urinary tract infection) Unknown Acute Weakness Unknown Acute Medications Current Home Medications Medication Dose Units Route Directions Days/Qty Instructions Start Date Aspirin 81 Mg 81 Mg Oral Daily @0900 01/09/15 Albuterol Sulfate 18 Gm 2 Puffs Inhalation Every 4-6 Hours As Needed as needed for Shortness Of Breath 01/09/15 Albuterol Sulfate 2.5 Mg/3 Ml 2.5 Mg Nebulizer Three Times A Day 02/18 Budesonide 0.5 Mg/2 Ml 0.5 Mg Nebulizer Twice A Day 01/09/15 Metronidazole 500 Mg 500 Mg Oral Three Times A Day 10 Days 05/18/16 Lactose-Free Food 237 Ml 1 Bottle Oral Three Times A Day 05/18/16 Guaifenesin 600 Mg 600 Mg Oral As Directed 600 MG ORAL DAILY EVERY MORNING 1200 MG ORAL DAILY EVERY NIGHT 05/18/16 Niacinamide 500 Mg 250 Mg Oral Twice A Day 05/18/16 Cephalexin 500 Mg 500 Mg Oral Three Times A Day 42 TID x 7 days then 1 daily 05/28/16 Metoprolol Tartrate 50 Mg 50 Mg Oral Daily @0900 30 dose decrease, place rx. on hold 06/04/16 Past Home Medications Medication Directions Ordered Status Guaifenesin 1,200 Mg Tbbp.12hr, 1200 Mg Oral Every 12 Hours 01/09/15 Discontinued Trimethoprim/Sulfamethoxazole 1 Each Tablet, 1 Each Oral Daily @899 Discontinued Cephalexin 500 Mg Capsule, 500 Mg Oral Three Times A Day 01/09/15 Discontinued Niacin 500 Mg Tablet, 2 Tab Oral Daily @89901/09/15 Discontinued Ciprofloxacin Hcl 500 Mg Tablet, 500 [...] A Day as needed for Pain Discontinued Ondansetron 4 Mg Tab.rapdis, 4 Mg Oral Every 6 Hours for Nausea 04/21/16 Discontinued Nitrofurantoin Monohyd/M-Cryst 100 Mg Capsule, 100 Mg Oral Twice A Day Discontinued Guaifenesin 1,200 Mg Tbbp.12hr, 600 Mg Oral As Directed 05/13/16 Discontinued Social History No social history. Hospital Discharge Instructions Current inpatient/outpatient. Discharge instructions are currently unavailable. Plan of Care Prescriptions Functional Status No functional status results. Allergies, Adverse Reactions, Alerts Allergen Type Severity Reaction Status Last Updated Sulfonylureas Allergy Unknown Active 09/04/08 Amoxicillin Allergy Unknown Active 09/04/08 Immunizations Name Given Type ZOSTAVAX 04/08/15 Administered Vital Signs Ambulatory Vital Signs Vital Response Date/Time Height 7 ft 05/28/2016 10:10am Weight 135 lbs 4 oz 05/28/2016 10:10am Temperature, Temporal 97.1 degrees F 05/28/2016 10:10am Blood Pressure, Sitting, Left Arm 98/60 mm Hg 05/28/2016 10:10am Pulse Rate 94 bpm 05/28/2016 10:10am Respiration Rate 16 bpm 05/28/2016 10:10am Body Surface Area 1.86 m2 05/28/2016 10:10am Body Mass Index 13.5 kg/m2 05/28/2016 10:10am Pulse Oximetry Pulse Oximetry 05/28/2016 10:10am Results Laboratory Results Test Name Result Units [...] Monocytes # (Auto) 1.3 H 0.1-1.0 02/28/2011 6:4702/28/2011 7:12am Eosinophils # (Auto) 0.0 0-0.4 02/28/2011 6:4702/28/2011 7:12am Basophils # (Auto) 0.0 K/mm3 0-0.2 02/28/2011 6:4702/28/2011 7:12am Platelet Estimate NORMAL NORMAL 02/28/2011 6:4702/28/2011 7:44am Basophilic Stippling 1+ 02/28/2011 6:4702/28/2011 7:44am Random Glucose 102 mg/dL 70-110 02/28/2011 6:4702/28/2011 7:41am Blood Urea Nitrogen 7 mg/dL 7-02/28/2011 6:4702/28/2011 7:41am Creatinine 0.9 mg/dL 0.6-1.3 02/28/2011 6:4702/28/2011 7:41am BUN/Creatinine Ratio 7.8 L 12-02/28/2011 6:4702/28/2011 7:41am Sodium Level 136 mEq/L 135-155 02/28/2011 6:4702/28/2011 7:41am Potassium Level 3.5 mEq/L 3.5-5.1 02/28/2011 6:4702/28/2011 7:41am Chloride Level 101 mEq/L 98-107 02/28/2011 6:47am 02/28/2011 7:41am Carbon Dioxide Level 27 mEq/L 21-32 02/28/2011 6:4702/28/2011 7: 41am Anion Gap 11.5 10-20 02/28/2011 [...] Result 3 Growth detected H NONE 01/16/2016 UNK 2015 6:39am Urine Culture (LAB) See Separate [...] 04/08/2016 9:23am 04/08/2016 9: 44am Urine Specific [place] 1.015 1.005-1.035 04/08/2016 9:23am 2015 9:44am Urine [...] 04/18/2016 12:30pm 04/18/2016 12: 58pm Urine Specific [place] 1.015 1.005-1.035 04/18/2016 12:30pm 2015 12:58pm Urine [...] 04/18/2016 1:06pm Blood Urea Nitrogen 16 mg/dL 18 04/18/2016 12:40pm 04/18/2016 1:06pm Creatinine 1.03 mg/dL [...] 04/29/2016 12:02pm 04/29/2016 12: 17pm Urine Specific [place] 1.020 1.005-1.035 04/29/2016 12:02pm 2015 12:17pm Urine [...] See Separate Report 04/29/2016 12:02pm 2015 1:44am Urine Color YELLOW STRAW 05/12/2016 8:21am 05/12/2016 9:49am Urine Appearance TURBID CLEAR 05/12/2016 8:21am 05/12/2016 9:49am Urine Glucose (UA) NEGATIVE mg/dL NEGATIVE 05/12/2016 8:21am 2015 9:49am Urine Bilirubin NEGATIVE NEGATIVE 05/12/2016 8:05/12/2016 9: 49am Urine Ketones NEGATIVE mg/dL NEGATIVE 05/12/2016 8:05/12/2016 9: 49am Urine Specific [place] 1.015 1.005-1.035 05/12/2016 8:2015 9:49am Urine Occult Blood 2+ MODERATE H NEGATIVE 05/12/2016 8:2015 9:49am Urine pH 7.0 05/12/2016 8:05/12/2016 9:49am Urine Protein 1+ 30 mg/dL mg/dL H NEGATIVE 05/12/2016 8:05/12/2016 9:49am Urine Urobilinogen 0.2 E.U./dL NORMAL 05/12/2016 8:05/12/2016 9: 49am Urine Nitrate POSITIVE H NEGATIVE 05/12/2016 8:05/12/2016 9:49am URINE HAS BEEN SENT FOR CULTURE Urine Leukocyte Esterase 2+ MODERATE H NEGATIVE 05/12/2016 8:02/2016 9:49am URINE HAS BEEN SENT FOR CULTURE Urine RBC 30-50 /hpf H NONE 05/12/2016 8:05/12/2016 9:49am Urine WBC 30-50 /hpf H NONE 05/12/2016 8:05/12/2016 9:49am Urine Squamous Epithelial Cells OCCASSIONAL /lpf OCCASSIONAL 05/12/2016 8:05/12/2016 9:49am Urine Bacteria MODERATE /hpf H NONE 05/12/2016 8:05/12/2016 9:49am Urine Hyaline Casts 0-1 /lpf H NONE 05/12/2016 8:05/12/2016 9:49am Urine Fine Granular Casts 0-1 /lpf H NONE 05/12/2016 8:05/12/2016 9 :49am Urine Mucus OCCASSIONAL /lpf H NONE 05/12/2016 8:05/12/2016 9:49am Urine Culture Result 1 Growth detected H NONE 05/12/2016 8:2015 6:41am Urine Culture Result 3 Growth detected H NONE 05/12/2016 8:2015 6:41am Urine Culture (LAB) See Separate Report 05/12/2016 8:21am 2015 1:40pm White Blood Count 7.66 K/mm3 4.5-10.5 05/16/2016 6:45am 05/16/2016 7: 07am Red Blood Count 3.26 M/mm3 L 4.60-6.00 05/16/2016 6:45am 05/16/2016 7: 07am Hemoglobin 10.3 gm/dl L 14.0-18.0 05/16/2016 6:45am 05/16/2016 7:07am Hematocrit 31.3 % L 40-54 05/16/2016 6:45am 05/16/2016 7:07am Mean Corpuscular Volume 96.0 fl H 80-94 05/16/2016 6:45am 05/16/2016 7: 07am Mean Corpuscular Hemoglobin 32 pg 26-32 05/16/2016 6:45am 05/16/2016 7: 07am Mean Corpuscular Hemoglobin Concent 33 g/dl 32-36 05/16/2016 6:45am 06/2016 7:07am Red Cell Distribution-SD 46.5 fL H 35.1-43.9 05/16/2016 6:452015 7:07am RDW Coefficient of Variation 13.9 % 11.5-14.5 05/16/2016 6:452015 7:07am Platelet Count 163 K/mm3 150-450 05/16/2016 6:4505/16/2016 7:07am Mean Platelet Volume 8.8 fl L 9.4-12.4 05/16/2016 6:45am 05/16/2016 7: 07am Neutrophils (%) (Auto) 68.5 % 50-70 05/16/2016 6:45am 05/16/2016 7: 07am Lymphocytes (%) (Auto) 17.9 % L 18-42 05/16/2016 6:45am 05/16/2016 7: 07am Monocytes (%) (Auto) 10.4 % 2-11 05/16/2016 6:45am 05/16/2016 7:07am Eosinophils (%) (Auto) 2.9 % 1-3 05/16/2016 6:45am 05/16/2016 7:07am Basophils (%) (Auto) 0.3 % 0-2 05/16/2016 6:45am 05/16/2016 7:07am Neutrophils # (Auto) 5.3 2-8 05/16/2016 6:45am 05/16/2016 7:07am Lymphocytes # (Auto) 1.4 1-5 05/16/2016 6:45am 05/16/2016 7:07am Monocytes # (Auto) 0.8 0.1-1.0 05/16/2016 6:45am 05/16/2016 7:07am Eosinophils # (Auto) 0.2 0-0.4 05/16/2016 6:45am 05/16/2016 7:07am Basophils # (Auto) 0.0 K/mm3 0-0.2 05/16/2016 6:45am 05/16/2016 7:07am Urine Color YELLOW STRAW 05/13/2016 4:30pm 05/13/2016 5:34pm Urine Appearance SL CLOUDY CLEAR 05/13/2016 4:30pm 05/13/2016 5:34pm Urine Glucose (UA) NEGATIVE mg/dL NEGATIVE 05/13/2016 4:30pm 2015 5:34pm Urine Bilirubin NEGATIVE NEGATIVE 05/13/2016 4:30pm 05/13/2016 5: 34pm Urine Ketones NEGATIVE mg/dL NEGATIVE 05/13/2016 4:30pm 05/13/2016 5: 34pm Urine Specific [place] 1.010 1.005-1.035 05/13/2016 4:30pm 2015 5:34pm Urine Occult Blood TRACE NEGATIVE 05/13/2016 4:30pm 05/13/2016 5: 34pm Urine pH 7.0 05/13/2016 4:30pm 05/13/2016 5:34pm Urine Protein 1+ 30 mg/dL mg/dL H NEGATIVE 05/13/2016 4:30pm 05/13/2016 5:34pm Urine Urobilinogen 1.0 E.U./dL H NORMAL 05/13/2016 4:30pm 05/13/2016 5: 34pm Urine Nitrate POSITIVE H NEGATIVE 05/13/2016 4:30pm 05/13/2016 5:34pm URINE HAS BEEN SENT FOR CULTURE Urine Leukocyte Esterase 2+ MODERATE H NEGATIVE 05/13/2016 4:30pm 03/2016 5:34pm URINE HAS BEEN SENT FOR CULTURE Urine RBC 0-1 /hpf H NONE 05/13/2016 4:30pm 05/13/2016 5:34pm Urine WBC 3-5 /hpf H NONE 05/13/2016 4:30pm 05/13/2016 5:34pm Urine Squamous Epithelial Cells NONE /lpf OCCASSIONAL 05/13/2016 4:30pm 05/13/2016 5:34pm Urine Bacteria FEW /hpf H NONE 05/13/2016 4:30pm 05/13/2016 5:34pm Stool Occult Blood POSITIVE H NEGATIVE 05/16/2016 9:01am 05/16/2016 10 :20am Random Glucose 82 mg/dL 70-110 05/16/2016 6:45am 05/16/2016 7:17am Blood Urea Nitrogen 10 mg/dL 7-18 05/16/2016 6:45am 05/16/2016 7:17am Creatinine 0.82 mg/dL # 0.550-1.3 05/16/2016 6:45am 05/16/2016 7:17am NOTE REFERENCE RANGE CHANGE 03/05/15 REFERENCE RANGE CHANGE DUE TO NEW REAGENT PREVIOUS RANGE: 0.6-1.3 mg/dL NEW RANGE: 0.550-1.3 mg/dL BUN/Creatinine Ratio 12.19 12-30 05/16/2016 6:45am 05/16/2016 7:17am Sodium Level 133 mEq/L L 135-155 05/16/2016 6:45am 05/16/2016 7:17am Potassium Level 4.0 mEq/L 3.5-5.1 05/16/2016 6:45am 05/16/2016 7:17am Chloride Level 99 mEq/L 98-107 05/16/2016 6:45am 05/16/2016 7:17am Carbon Dioxide Level 28 mEq/L 21-32 05/16/2016 6:45am 05/16/2016 7: 17am Anion Gap 10.0 10-20 05/16/2016 6:45am 05/16/2016 7:17am Calcium Level 8.4 mg/dL 8.2-10.0 05/16/2016 6:45am 05/16/2016 7:17am Glomerular Filtration Rate Calc 94 05/16/2016 6:45am 05/16/2016 7: 17am At increased risk Risk factors for CKD are present but w/o >90 markers of kidney damage 1 Kidney damage w/ normal or >90 increased GFR 2 Kidney damage w/ mild reduc- 60-89 tion of GFR 3 Moderate reduction of GFR 30-59 4 Severe reduction of GFR 15-29 5 Kidney Failure <15 Total Protein 5.9 gm/dL L 6.4-8.2 05/16/2016 6:45am 05/16/2016 7:17am Albumin 2.8 gm/dL L 3.4-5.0 05/16/2016 6:45am 05/16/2016 7:17am Albumin/Globulin Ratio 0.9 05/16/2016 6:45am 05/16/2016 7:17am Total Bilirubin 0.51 mg/dL 0.2-1.0 05/16/2016 6:45am 05/16/2016 7:17am Aspartate Amino Transf (AST/SGOT) 26 U/L 15-37 05/16/2016 6:45am 2015 7:17am Alanine Aminotransferase (ALT/SGPT) 20 U/L 12-78 05/16/2016 6:45am 06/2016 7:17am Alkaline Phosphatase 77.0 U/L 46-116 05/16/2016 6:45am 05/16/2016 7: 17am Urine Culture Result 1 Growth detected H NONE 05/13/2016 5:25pm 2015 7:06am Urine Culture Result 3 Growth detected H NONE 05/13/2016 5:25pm 2015 7:06am C. difficile Toxin B Gene (PCR) POSITIVE H NEGATIVE 05/16/2016 9:01am 05/16/2016 11:04am CALL RESULTS TO GOSIA AT - 05/16/16 BY JASON Clostridium difficile [id number] NEGATIVE NEGATIVE 05/16/2016 9:01am 05/16/2016 11:04am Giardia Antigen Negative NEGATIVE 05/16/2016 9:01am 05/16/2016 10: 31am Stool Cryptosporidium Antigen Negative NEGATIVE 05/16/2016 9:01am 06/2016 10:31am Campylobacter Antigen NEGATIVE NONE DETECT 05/16/2016 9:01am 2015 10:35am Absence of Campylobacter antigen or levels below the limit of detection for the assay. Stool for White Cells No WBC's Observed None 05/16/2016 9:01am 2015 10:31am Globulin 3.1 gm/dL 2.0-4.5 05/16/2016 6:45am 05/16/2016 7:17am Urine Culture (LAB) See Separate Report 05/13/2016 5:25pm 2015 1:40pm Salmonella/Shigella Culture (LAB) See Separate Report 05/16/2016 9: 01am 05/20/2016 11:26am White Blood Count 8.73 K/mm3 4.5-10.5 05/17/2016 6:30am 05/17/2016 7: 09am Red Blood Count 3.66 M/mm3 L 4.60-6.00 05/17/2016 6:30am 05/17/2016 7: 09am Hemoglobin 11.7 gm/dl L 14.0-18.0 05/17/2016 6:05/17/2016 7:09am Hematocrit 34.7 % L 40-54 05/17/2016 6:05/17/2016 7:09am Mean Corpuscular Volume 94.8 fl H 80-94 05/17/2016 6:05/17/2016 7: 09am Mean Corpuscular Hemoglobin 32 pg 26-32 05/17/2016 6:05/17/2016 7: 09am Mean Corpuscular Hemoglobin Concent 34 g/dl 32-36 05/17/2016 6:07/2016 7:09am Red Cell Distribution-SD 46.1 fL H 35.1-43.9 05/17/2016 6:2015 7:09am RDW Coefficient of Variation 13.9 % 11.5-14.5 05/17/2016 6:2015 7:09am Platelet Count 185 K/mm3 150-450 05/17/2016 6:05/17/2016 7:09am Mean Platelet Volume 9.2 fl L 9.4-12.4 05/17/2016 6:05/17/2016 7: 09am Neutrophils (%) (Auto) 65.3 % 50-70 05/17/2016 6:05/17/2016 7: 09am Lymphocytes (%) (Auto) 20.8 % 18-42 05/17/2016 6:05/17/2016 7: 09am Monocytes (%) (Auto) 11.6 % H 2-11 05/17/2016 6:05/17/2016 7:09am Eosinophils (%) (Auto) 2.1 % 1-3 05/17/2016 6:05/17/2016 7:09am Basophils (%) (Auto) 0.2 % 0-2 05/17/2016 6:05/17/2016 7:09am Neutrophils # (Auto) 5.7 2-8 05/17/2016 6:05/17/2016 7:09am Lymphocytes # (Auto) 1.8 1-5 05/17/2016 6:05/17/2016 7:09am Monocytes # (Auto) 1.0 0.1-1.0 05/17/2016 6:3005/17/2016 7:09am Eosinophils # (Auto) 0.2 0-0.4 05/17/2016 6:3005/17/2016 7:09am Basophils # (Auto) 0.0 K/mm3 0-0.2 05/17/2016 6:3005/17/2016 7:09am Random Glucose 86 mg/dL 70-110 05/17/2016 6:3005/17/2016 7:24am Blood Urea Nitrogen 11 mg/dL 7-05/17/2016 6:3005/17/2016 7:24am Creatinine 0.95 mg/dL # 0.550-1.3 05/17/2016 6:3005/17/2016 7:24am NOTE REFERENCE RANGE CHANGE 03/05/15 REFERENCE RANGE CHANGE DUE TO NEW REAGENT PREVIOUS RANGE: 0.6-1.3 mg/dL NEW RANGE: 0.550-1.3 mg/dL BUN/Creatinine Ratio 11.57 L -05/17/2016 6:3005/17/2016 7: 24am Sodium Level 132 mEq/L L 135-155 05/17/2016 6:3005/17/2016 7:24am Potassium Level 3.8 mEq/L 3.5-5.1 05/17/2016 6:3005/17/2016 7:24am Chloride Level 99 mEq/L 98-107 05/17/2016 6:3005/17/2016 7:24am Carbon Dioxide Level 30 mEq/L 21-32 05/17/2016 6:3005/17/2016 7: 24am Anion Gap 6.8 L 10-20 05/17/2016 6:3005/17/2016 7:24am Calcium Level 8.7 mg/dL 8.2-10.0 05/17/2016 6:3005/17/2016 7:24am Glomerular Filtration Rate Calc 80 05/17/2016 6:3005/17/2016 7: 24am At increased risk Risk factors for CKD are present but w/o >90 markers of kidney damage 1 Kidney damage w/ normal or >90 increased GFR 2 Kidney damage w/ mild reduc- 60-89 tion of GFR 3 Moderate reduction of GFR 30-59 4 Severe reduction of GFR 15-29 5 Kidney Failure <15 Total Protein 6.7 gm/dL 6.4-8.2 05/17/2016 6:30am 05/17/2016 7:24am Albumin 3.1 gm/dL L 3.4-5.0 05/17/2016 6:3005/17/2016 7:24am Albumin/Globulin Ratio 0.9 05/17/2016 6:3005/17/2016 7:24am Total Bilirubin 0.58 mg/dL 0.2-1.0 05/17/2016 6:3005/17/2016 7:24am Aspartate Amino Transf (AST/SGOT) 29 U/L 15-37 05/17/2016 6:30am 2015 7:24am Alanine Aminotransferase (ALT/SGPT) 25 U/L 12-78 05/17/2016 6:30am 07/2016 7:24am Alkaline Phosphatase 83.0 U/L 46-116 05/17/2016 6:30am 05/17/2016 7: 24am Globulin 3.6 gm/dL 2.0-4.5 05/17/2016 6:30am 05/17/2016 7:24am Urine Color YELLOW STRAW 05/27/2016 2:11pm 05/27/2016 3:16pm Urine Appearance TURBID CLEAR 05/27/2016 2:11pm 05/27/2016 3:16pm Urine Glucose (UA) NEGATIVE mg/dL NEGATIVE 05/27/2016 2:112015 3:16pm Urine Bilirubin NEGATIVE NEGATIVE 05/27/2016 2:1105/27/2016 3: 16pm Urine Ketones NEGATIVE mg/dL NEGATIVE 05/27/2016 2:1105/27/2016 3: 16pm Urine Specific [place] 1.010 1.005-1.035 05/27/2016 2:11pm 2015 3:16pm Urine Occult Blood 2+ MODERATE H NEGATIVE 05/27/2016 2:2015 3:16pm Urine pH 7.0 05/27/2016 2:1105/27/2016 3:16pm Urine Protein 1+ 30 mg/dL mg/dL H NEGATIVE 05/27/2016 2:1105/27/2016 3:16pm Urine Urobilinogen 0.2 E.U./dL NORMAL 05/27/2016 2:11pm 05/27/2016 3: 16pm Urine Nitrate POSITIVE H NEGATIVE 05/27/2016 2:11pm 05/27/2016 3:16pm URINE HAS BEEN SENT FOR CULTURE Urine Leukocyte Esterase 3+ LARGE H NEGATIVE 05/27/2016 2:2015 3:16pm URINE HAS BEEN SENT FOR CULTURE Urine RBC 6-10 /hpf H NONE 05/27/2016 2:1105/27/2016 3:16pm Urine WBC 50+ /hpf H NONE 05/27/2016 2:1105/27/2016 3:16pm Urine Squamous Epithelial Cells OCCASSIONAL /lpf OCCASSIONAL 05/27/2016 2:11pm 05/27/2016 3:16pm Urine Bacteria FEW /hpf H NONE 05/27/2016 2:1105/27/2016 3:16pm Urine Culture Result 1 Growth detected H NONE 05/27/2016 2:11pm 2015 6:37am Urine Culture Result 3 Growth detected H NONE 05/27/2016 2:11pm 2015 6:37am Urine Culture (LAB) See Separate Report 05/27/2016 2:11pm 2015 1:08pm Procedures No known history of procedures. Encounters Encounter Location Arrival/Admit Date Discharge/Depart Date Attending Provider Registered Clinic [facility] 05/28/16 10:52am FLORENTINO ERICKSON DO Office Visit [facility] 05/28/16 10:00am FLORENTINO ERICKSON DO Registered Practice [facility] 05/28/16 10:00am FLORENTINO ERICKSON DO Departed Clinic [facility] 05/27/16 2:11pm 05/27/16 11: 59pm FLORENTINO ERICKSON DO Discharged Inpatient [facility] 05/16/16 1:25pm 05/18/16 2 :40pm FLORENTINO ERICKSON DO Discharged Inpatient [facility] 05/13/16 1:05pm 05/16/16 1 :25pm FLORENTINO ERICKSON DO Office Visit [facility] 05/13/16 10:45am Micah Chen Departed Clinic [facility] 05/12/16 8:17am 05/12/16 11: 59pm Micah Chen PA Discharged Recurring [facility] 05/07/16 7:29am 06/05/16 11:59pm Micah Chen PA Discharged Recurring [facility] 05/04/16 7:26pm 05/06/16 11:59pm Micah Chen Registered Clinic [facility] 04/29/16 11:41am Micah Chen PA Office Visit [facility] 04/21/16 2:00pm Micah Chen PA Discharged Inpatient (obs) [facility] 04/18/16 1:50pm 6:00pm Librado Perales DO Departed Emergency Room [facility] 04/18/16 10:58am 1:50pm Librado Perales DO Office Visit [facility] 04/15/16 1:00pm Micah Chen PA Departed Clinic [facility] 04/15/16 12:26pm 04/15/16 11: 59pm Micah Chen PA Departed Clinic [facility] 04/08/16 11:18am 04/08/16 11: 59pm Riya Gallegos Departed Clinic [facility] 04/08/16 9:20am 04/08/16 11: 59pm Riya Gallegos Office Visit [facility] 04/08/16 8:30am Riya Gallegos Departed Clinic [facility] 03/24/16 8:54am 03/24/16 11: 59pm Micah Chen PA Departed Clinic [facility] 03/24/16 8:34am 03/24/16 11: 59pm Micah Chen PA Office Visit [facility] 03/24/16 8:30am Micah Chen PA Departed Clinic [facility] 01/16/16 2:37pm 01/16/16 11: 59pm Micah Chen PA Departed Clinic [facility] 01/16/16 2:24pm 01/16/16 11: 59pm Micah Chen PA Office Visit [facility] 01/16/16 2:15pm Micah Chen PA Departed Clinic [facility] 01/09/15 9:18am 01/09/15 11: 59pm Micah Chen PA Office Visit [facility] 01/09/15 8:45am Micah Chen PA Office Visit [facility] 03/16/11 10:00am Micah Chen PA Discharged Inpatient (obs) [facility] 02/28/11 2:00am 31/07 11:50am Johnathon Dallas MD Departed Emergency Room [facility] 02/28/11 12:46am 2:00am Johnathon Dallas MD Registered Surgical Day [facility] 10/12/07 1:46pm
--- OUTSIDE RECORDS SUMMARY | 2016-11-02 13:42 | XMS REPORT | Continuity of Care Document ---
Author Author [facility] Organization [facility] Address Unknown Phone Unavailable Support Name Relationship Address Phone GEORGINA FLORENTINO Lazcano DO Caregiver [address] [place] [address] JESUS MANUEL ARAUJO [place] [address] Insurance Providers Payer Name Policy Number Subscriber Name Relationship s Medicare [id number] Primitivo Yip 18 Self / Same As Patient [facility] Employee [facility] [id number] Primitivo Yip 18 Self / Same As Patient Chief Complaint and Reason for Visit Reason for Visit Diarrhea Nausea & vomiting Repeated falls Sepsis UTI (urinary tract infection) Urinary tract infection Status post colectomy Weakness Problems Active Problems Medical Problem Onset Date Status Anemia Unknown Acute Bladder stone Unknown Acute C. difficile colitis Unknown Acute C. 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 Diarrhea Unknown Acute Falling Unknown Acute Fracture, rib Unknown Acute Nausea & vomiting Unknown Acute Pain Unknown Acute Prostate cancer Unknown Acute Recurrent UTI Unknown Acute Repeated falls Unknown Acute Sepsis Unknown Acute Swelling of face 01/09/2015 Acute UTI (urinary tract infection) Unknown Acute Urinary tract infection Unknown Acute Weakness Unknown Acute Surgical Problem Onset Date Status Status post colectomy Unknown Acute Medications Current Home Medications Medication Dose Units Route Directions Days/Qty Instructions Start Date Aspirin 81 Mg 81 Mg Oral Daily @0900 01/09/15 Albuterol Sulfate 18 Gm 2 Puffs Inhalation Every 4-6 Hours As Needed as needed for Shortness Of Breath 01/09/15 Guaifenesin 600 Mg 600 Mg Oral As Directed 600 MG ORAL DAILY EVERY MORNING 1200 MG ORAL DAILY EVERY NIGHT 05/18/16 Acetaminophen 650 Mg 650 Mg Oral as needed for Pain 06/14/16 Budesonide 0.5 Mg/2 Ml 0.5 Mg Inhalation Twice A Day 06/14/16 Acetylcysteine 200 Mg/1 Ml 2 Ml Inhalation Rt Bid 60 11/29/16 Ferrous Sulfate 324 Mg 324 Mg Oral Twice A Day 60 08/04/16 Ipratropium/Albuterol Sulfate 3 Ml 3 Ml Inhalation Rt Qid Times 120 Lorazepam 0.5 Mg 0.25 Mg Oral Three Times A Day 90 08/04/16 Quetiapine Fumarate 25 Mg 25 Mg Oral Daily@17 30 08/04/16 Citalopram Hydrobromide 20 Mg 20 Mg Oral Daily @0900 90 08/07/16 Hydrocodone/Acetaminophen 5/325 1 Each 1-2 Each Oral .q4h as needed for Pain 120 08/07/16 Iron Sucrose Complex 200 Mg/10 Ml 200 Mg Intraven Once 1 last dose of 5 due on 08/08/16 08/07/16 [Dressing Change] 1 Ea 0 Ea Topical Every 72 Hours 30 CHANGE FOAM DRESSING TO BUTTOCKS Q72H, CLEANSE AREA WITH SOAP & WATER AND REAPPLY 08/07/16 [Dressing Change] 1 Ea 0 Ea Topical Every 7 Days 5 CLEANSE L UPPER ABD ( OLD PEG SITE) WITH SOAP & WATER. APPLY APTILOCK & SECURE WITH KERLIX. CHANGE EVERY 7 DAYS AND NEEDED. 08/07/16 Past Home Medications Medication Directions Ordered Status Guaifenesin 1,200 Mg Tbbp.12hr, 1200 Mg Oral Every 12 Hours 01/09/15 Discontinued Trimethoprim/Sulfamethoxazole 1 Each Tablet, 1 Each Oral Daily @0900 Discontinued Cephalexin 500 Mg Capsule, 500 Mg Oral Three Times A Day 01/09/15 Discontinued Albuterol Sulfate 2.5 Mg/3 Ml Vial.neb, 2.5 Mg Nebulizer Three Times A Day Discontinued Budesonide 0.5 Mg/2 Ml Ampul.neb, 0.5 Mg Nebulizer Twice A Day 01/09/15 Discontinued Niacin 500 Mg Tablet, 2 Tab Oral Daily @0900 01/09/15 Discontinued Ciprofloxacin Hcl 500 Mg Tablet, [...] 600 Mg Oral As Directed 05/13/16 Discontinued Lactose-Free Food 237 Ml Liquid, 1 Bottle Oral Three Times A Day 05/18/16 Discontinued Niacinamide 500 Mg Tablet, 250 Mg Oral Twice A Day 05/18/16 Discontinued Cephalexin 500 Mg Capsule, 500 Mg Oral Three Times A Day 05/28/16 Discontinued Metoprolol Tartrate 50 Mg Tablet, 50 Mg Oral Daily @0906/04/16 Discontinued Niacin (Inositol Niacinate) 500 Mg Capsule, 1 Cap Oral Daily @ 06/14/16 Discontinued Nitrofurantoin Monohyd/M-Cryst 100 Mg Capsule, 100 Mg Oral Daily @899 Discontinued Metoprolol Tartrate 50 Mg Tablet, 25 Mg Oral Daily @89906/16/16 Discontinued Phenazopyridine Hcl 100 Mg Tablet, 100 Mg Oral Three Times A Day as needed for Pain 06/22/16 Discontinued Social History Query Response Start Date Stop Date Smoking Status Former smoker Hospital Discharge Instructions Patient Visit Information TRANSFER ORDER Care Home Admission: Admit to Other facility:: [facility] Discharge Diagnosis (FREE TEXT): weakness, anemia, prolonged hospitalization Admit to Provider:: Dr. Erickson Resuscitation Status: Do Not Resuscitate Admit to:: Other Level of Care required: Skilled (SNF) TRANSFER CHECKLIST Was Care Assessment Completed?: Yes Were personal belongings sent?: Yes Name of person report called to: RENEE TOLLIVER @ [phone] [employer] Healthcare Decision Maker: Other VITAL SIGNS Temperature (Fahrenheit): 98.6 degrees F Pulse Rate: 100 bpm Respiratory Rate: 20 bpm O2 Sat by Pulse Oximetry: 93 % Blood Pressure Systolic: 112 mm Hg Blood Pressure Diastolic: 67 mm Hg PAIN Pain Location Body Site Modifier: Anterior Pain Description: Sharp Pain Intensity: 0 Comment: 0 MENTAL STATUS Level Of Consciousness: Awake, Alert, Follows Commands Arousable To: Name Patient Orientation: Person, Place, Time SPEECH Preferred Language: Nepali Premium Auditor Required: No Ability to Follow Directions: Fair HEARING Hearing #1 Side: Bilateral Hearing Ability: WNL BOWEL Date of Last Bowel Movement: 08/07/16 IV/CVC ACCESS IV Location (side): Left IV Line Location (Body Site): Forearm IV Catheter Gauge: 22 gauge Comments: LFA INFECTION CONTROL History of MRSA: No History of VRE: No History of C-Diff: No Precautions/Isolation: Standard RESPIRATORY Respiratory Effort: Normal, Non-Labored Respiratory Retraction Type: Intercostal Respiratory Depth: Normal Respiratory Pattern: Normal Tracheostomy: No SKIN/WOUND Wound #1 Location Modifier: Medial Wound Location: Coccyx Type: Pressure Ulcer Wound/Burn Stage: Full Thickness Date Dressing Changed: 08/07/16 Wound #2 Wound Location: PEG TUBE INSERTION SITE Type: PEG SITE Wound/Burn Stage: Partial Thickness VALUABLES Patient verifies return of all valuables on discharge: Yes DISCHARGE ORDERS MO Diet Orders: MO Diet Orders: Regular Skilled Care Certification: Skilled Care Certification: Y MO Vitals: Vital Signs: Weekly MO Weight Bearing: Weight bearing status: Full WEIGHT MONITORING: Weight Monitoring: Weekly Take Wt. Log to visit Free of communicable diseases: Is resident is free of communicable disease? Y or N: Y Prognosis: Prognosis: Poor Evaluation and Treatment: Evaluation and Treatment: PT OT WOUND CARE / OTHER ORDERS: Other Orders:: TRANSFER TO [facility] WHEN BED IS AVAILABLE Restrictions: NONE Wound Care / Treatment: SEE MAR FOR WOUND CARE Oxygen: Oxygen therapy: Y TITRATE TO KEEP SAO2 >/=90% (CURRENTLY USING 2L, NOT TO EXCEED 3L) Care Home Standing Orders: Participate in facility activities of choice: Y May leave facility w/family-friends with PRN meds: Y May keep personal care items at bedside: Y Vaccines per facility protocol: Y Follow fcility skin care protocol: Y TB Testin step Mantoux, if needed Care Home Admission: Admit to Other facility:: [facility] Discharge Diagnosis (FREE TEXT): weakness, anemia, prolonged hospitalization Admit to Provider:: Dr. Erickson Resuscitation Status: Do Not Resuscitate Admit to:: Other Level of Care required: Skilled (SNF) ACTIVITY ORDERS: Activity Comment: ENCOURAGE ACTIVITY, UP IN CHAIR AT LEAST 20 MIN TID Activity: Normal activity as carla [facility] D/C Potential: Discharge Potential: Poor Rehab Potential: Poor Plan of Care Discharge Date 08/07/16 10:34am Disposition HALF-WAY FACILITY Instructions/Education Provided Colostomy Creation (GEN) Tube Feeding (GEN) Prescriptions See Medication Section Follow-up Orders CBC w/ Diff CMP Referrals Pawan Lopez MD (Urology) - IN 1 WEEK Address: [address] [place] [address] [address] [place] [address] Reason(s) for Referral: Status post colectomy Urinary tract infection Colovesical fistula Recurrent UTI FLORENTINO ERICKSON DO (Medical) - IN 2 WEEKS Address: [address] [place] [address] Reason(s) for Referral: Anemia ED QUIROZ MD (General Surgery) - 08/12/16 Address: [place] [address] Reason(s) for Referral: Status post colectomy Care Plan and Goals Functional Status No functional status results. Allergies, Adverse Reactions, Alerts Allergen Type Severity Reaction Status Last Updated Sulfa (Sulfonamide Antibiotics) Adverse Reaction Unknown nausea Active 04/21 Amoxicillin Allergy Severe Active 06/14/16 Immunizations Name Given Type ZOSTAVAX 04/08/15 Administered Pneumococcal conjugate PCV 13 06/14/16 Administered Pneumococcal conjugate PCV 13 06/17/16 Administered Vital Signs Acute Vital Signs Vital Response Date/Time Height 6 ft 0 in Weight 112 lb Body Mass Index 15.3 kg/m^2 Ambulatory Vital Signs Vital Response Date/Time Height 5 ft 10.750 in 06/12/2016 1:02pm Weight 135 lbs 4 oz 06/12/2016 1:02pm Temperature, Temporal 97.6 degrees F 06/12/2016 1:02pm Blood Pressure, Sitting, Left Arm 110/60 mm Hg 06/12/2016 1:02pm Pulse Rate 74 bpm 06/12/2016 1:02pm Respiration Rate 22 bpm 06/12/2016 1:02pm Body Surface Area 1.74 m2 06/12/2016 1:02pm Body Mass Index 19.0 kg/m2 06/12/2016 1:02pm Pulse Oximetry Pulse Oximetry 06/12/2016 1:02pm Results Laboratory Results Test Name Result Units [...] 02/28/2011 7:41am Creatinine 0.9 mg/dL 0.6-1.3 02/28/2011 6:4702/28/2011 7:41am BUN/Creatinine Ratio 7.8 L 12-30 02/28/2011 6:47am 02/28/2011 7:41am Sodium Level 136 mEq/L 135-155 02/28/2011 6:47am 02/28/2011 7:41am Potassium Level 3.5 mEq/L 3.5-5.1 02/28/2011 6:4702/28/2011 7:41am Chloride Level 101 mEq/L 98-107 02/28/2011 6:4702/28/2011 7:41am Carbon Dioxide Level 27 mEq/L 21-32 [...] 04/08/2016 9:23am 04/08/2016 9: 44am Urine Specific [place] 1.015 1.005-1.035 04/08/2016 9:23am 2015 9:44am Urine Occult Blood 1+ SMALL H NEGATIVE 04/08/2016 9:2304/08/2016 9: 44am Urine pH 7.0 04/08/2016 9:2304/08/2016 9:44am Urine Protein TRACE mg/dL H NEGATIVE 04/08/2016 9:23am 04/08/2016 9: 44am Urine Urobilinogen 0.2 E.U./dL NORMAL 04/08/2016 9:2304/08/2016 9: 44am Urine Nitrate NEGATIVE NEGATIVE 04/08/2016 9:2304/08/2016 9:44am Urine Leukocyte Esterase 1+ SMALL H [...] Urine Mucus FEW /lpf H NONE 04/08/2016 9:2304/08/2016 9:44am Urine Yeast FEW /hpf H NONE [...] 04/18/2016 12:30pm 04/18/2016 12: 58pm Urine Specific [place] 1.015 1.005-1.035 04/18/2016 12:30pm 2015 12:58pm Urine [...] 04/18/2016 1:06pm Blood Urea Nitrogen 16 mg/dL 03-2304/18/2016 12:40pm 04/18/2016 1:06pm Creatinine 1.03 mg/dL 0.550-1.3 [...] 04/29/2016 12:02pm 04/29/2016 12: 17pm Urine Specific [place] 1.020 1.005-1.035 04/29/2016 12:02pm 2015 12:17pm Urine [...] 2015 9:49am Urine Bilirubin NEGATIVE NEGATIVE 05/12/2016 8:21am 05/12/2016 9: 49am Urine Ketones NEGATIVE mg/dL NEGATIVE 05/12/2016 8:21am 05/12/2016 9: 49am Urine Specific [place] 1.015 1.005-1.035 05/12/2016 8:2015 9:49am Urine Occult [...] Urine Culture (LAB) See Separate Report 05/12/2016 8:2015 1:40pm White Blood Count 7.66 K/mm3 4.5-10.5 05/16/2016 6:4505/16/2016 7: 07am Red Blood Count 3.26 M/mm3 L 4.60-6.00 05/16/2016 6:4505/16/2016 7: 07am Hemoglobin 10.3 gm/dl L 14.0-18.0 05/16/2016 6:4505/16/2016 7:07am Hematocrit 31.3 % L 40-54 05/16/2016 6:4505/16/2016 7:07am Mean Corpuscular Volume 96.0 fl H 80-94 05/16/2016 6:4505/16/2016 7: 07am Mean Corpuscular Hemoglobin 32 pg 26-32 05/16/2016 6:4505/16/2016 7: 07am Mean Corpuscular Hemoglobin Concent 33 g/dl 32-36 05/16/2016 6:4506/2016 7:07am Red Cell Distribution-SD 46.5 fL H 35.1-43.9 05/16/2016 6:452015 7:07am RDW Coefficient of Variation 13.9 % 11.5-14.5 05/16/2016 6:452015 7:07am Platelet Count 163 K/mm3 150-450 05/16/2016 6:4505/16/2016 7:07am Mean Platelet Volume 8.8 fl L 9.4-12.4 05/16/2016 6:4505/16/2016 7: 07am Neutrophils (%) (Auto) 68.5 % 50-70 05/16/2016 6:4505/16/2016 7: 07am Lymphocytes (%) (Auto) 17.9 % L 18-42 05/16/2016 6:4505/16/2016 7: 07am Monocytes (%) (Auto) 10.4 % 2-11 05/16/2016 6:4505/16/2016 7:07am Eosinophils (%) (Auto) 2.9 % 1-3 05/16/2016 6:4505/16/2016 7:07am Basophils (%) (Auto) 0.3 % 0-2 05/16/2016 6:4505/16/2016 7:07am Neutrophils # (Auto) 5.3 2-8 05/16/2016 [...] 05/13/2016 4:30pm 05/13/2016 5: 34pm Urine Specific [place] 1.010 1.005-1.035 05/13/2016 4:30pm 2015 5:34pm Urine [...] 09am Hemoglobin 11.7 gm/dl L 14.0-18.0 05/17/2016 6:30am 05/17/2016 7:09am Hematocrit 34.7 % L 40-54 05/17/2016 6:30am 05/17/2016 7:09am Mean Corpuscular Volume 94.8 fl H [...] 7:09am Monocytes # (Auto) 1.0 0.1-1.0 05/17/2016 6:05/17/2016 7:09am Eosinophils # (Auto) 0.2 0-0.4 05/17/2016 6:05/17/2016 7:09am Basophils # (Auto) 0.0 K/mm3 0-0.2 05/17/2016 6:3005/17/2016 7:09am Random Glucose 86 mg/dL 70-110 05/17/2016 6:3005/17/2016 7:24am Blood Urea Nitrogen 11 mg/dL 7-18 05/17/2016 6:3005/17/2016 7:24am Creatinine 0.95 mg/dL # 0.550-1.3 05/17/2016 6:3005/17/2016 7:24am NOTE REFERENCE RANGE CHANGE 03/05/15 REFERENCE RANGE CHANGE DUE TO NEW REAGENT PREVIOUS RANGE: 0.6-1.3 mg/dL NEW RANGE: 0.550-1.3 mg/dL BUN/Creatinine Ratio 11.57 L 12-05/17/2016 6:3005/17/2016 7: 24am Sodium Level 132 mEq/L [...] <15 Total Protein 6.7 gm/dL 6.4-8.2 05/17/2016 6:3005/17/2016 7:24am Albumin 3.1 gm/dL L 3.4-5.0 05/17/2016 6:3005/17/2016 7:24am Albumin/Globulin Ratio 0.9 05/17/2016 6:3005/17/2016 7:24am Total Bilirubin 0.58 mg/dL 0.2-1.0 05/17/2016 6:3005/17/2016 7:24am Aspartate Amino Transf (AST/SGOT) 29 U/L 15-37 05/17/2016 6:302015 7:24am Alanine Aminotransferase (ALT/SGPT) 25 U/L 12-78 05/17/2016 6:3007/2016 7:24am Alkaline Phosphatase 83.0 U/L 46-116 05/17/2016 6:3005/17/2016 7: 24am Globulin 3.6 gm/dL 2.0-4.5 05/17/2016 6:30am 05/17/2016 7:24am Urine Color YELLOW STRAW 05/27/2016 2:11pm 05/27/2016 3:16pm Urine Appearance TURBID CLEAR 05/27/2016 2:11pm 05/27/2016 3:16pm Urine Glucose (UA) NEGATIVE mg/dL NEGATIVE 05/27/2016 2:11pm 2015 3:16pm Urine Bilirubin NEGATIVE NEGATIVE 05/27/2016 2:1105/27/2016 3: 16pm Urine Ketones NEGATIVE mg/dL NEGATIVE 05/27/2016 2:1105/27/2016 3: 16pm Urine Specific [place] 1.010 1.005-1.035 05/27/2016 2:11pm 2015 3:16pm Urine Occult Blood 2+ MODERATE H NEGATIVE 05/27/2016 2:pm 2015 3:16pm Urine pH 7.0 05/27/2016 2:11pm 05/27/2016 3:16pm Urine Protein 1+ 30 mg/dL mg/dL H NEGATIVE 05/27/2016 2:1105/27/2016 3:16pm Urine Urobilinogen 0.2 E.U./dL NORMAL 05/27/2016 2:11pm 05/27/2016 3: 16pm Urine Nitrate POSITIVE H NEGATIVE 05/27/2016 2:1105/27/2016 3:16pm URINE HAS BEEN SENT FOR CULTURE Urine Leukocyte Esterase 3+ LARGE H NEGATIVE 05/27/2016 2:11pm 2015 3:16pm URINE HAS BEEN SENT FOR CULTURE Urine RBC 6-10 /hpf H NONE 05/27/2016 2:05/27/2016 3:16pm Urine WBC 50+ /hpf H NONE 05/27/2016 2:05/27/2016 3:16pm Urine Squamous Epithelial Cells OCCASSIONAL /lpf OCCASSIONAL 05/27/2016 2:11pm 05/27/2016 3:16pm Urine Bacteria FEW /hpf H NONE 05/27/2016 2:11pm 05/27/2016 3:16pm Urine Culture Result 1 Growth detected H NONE 05/27/2016 2:11pm 2015 6:37am Urine Culture Result 3 Growth detected H NONE 05/27/2016 2:112015 6:37am Urine Culture (LAB) See Separate Report 05/27/2016 2:11pm 2015 1:08pm White Blood Count 7.89 K/mm3 4.5-10.5 06/12/2016 1:53pm 06/12/2016 2: 04pm Red Blood Count 3.70 M/mm3 L 4.60-6.00 06/12/2016 1:53pm 06/12/2016 2: 04pm Hemoglobin 12.1 gm/dl L 14.0-18.0 06/12/2016 1:53pm 06/12/2016 2:04pm Hematocrit 36.3 % L 40-54 06/12/2016 1:53pm 06/12/2016 2:04pm Mean Corpuscular Volume 98.1 fl H 80-94 06/12/2016 1:53pm 06/12/2016 2: 04pm Mean Corpuscular Hemoglobin 33 pg H 26-32 06/12/2016 1:53pm 06/12/2016 2 :04pm Mean Corpuscular Hemoglobin Concent 33 g/dl 32-36 06/12/2016 1:53pm 03/2016 2:04pm Red Cell Distribution-SD 48.9 fL H 35.1-43.9 06/12/2016 1:53pm 2015 2:04pm RDW Coefficient of Variation 14.2 % 11.5-14.5 06/12/2016 1:53pm 2015 2:04pm Platelet Count 173 K/mm3 150-450 06/12/2016 1:53pm 06/12/2016 2:04pm Mean Platelet Volume 8.9 fl L 9.4-12.4 06/12/2016 1:53pm 06/12/2016 2: 04pm Neutrophils (%) (Auto) 65.1 % 50-70 06/12/2016 1:53pm 06/12/2016 2: 04pm Lymphocytes (%) (Auto) 20.8 % 18-42 06/12/2016 1:53pm 06/12/2016 2: 04pm Monocytes (%) (Auto) 11.5 % H 2-11 06/12/2016 1:53pm 06/12/2016 2:04pm Eosinophils (%) (Auto) 2.3 % 1-3 06/12/2016 1:53pm 06/12/2016 2:04pm Basophils (%) (Auto) 0.3 % 0-2 06/12/2016 1:53pm 06/12/2016 2:04pm Neutrophils # (Auto) 5.1 2-8 06/12/2016 1:53pm 06/12/2016 2:04pm Lymphocytes # (Auto) 1.6 1-5 06/12/2016 1:53pm 06/12/2016 2:04pm Monocytes # (Auto) 0.9 0.1-1.0 06/12/2016 1:53pm 06/12/2016 2:04pm Eosinophils # (Auto) 0.2 0-0.4 06/12/2016 1:53pm 06/12/2016 2:04pm Basophils # (Auto) 0.0 K/mm3 0-0.2 06/12/2016 1:53pm 06/12/2016 2:04pm Random Glucose 128 mg/dL H 70-110 06/12/2016 1:53pm 06/12/2016 3:17pm Blood Urea Nitrogen 14 mg/dL 7-18 06/12/2016 1:53pm 06/12/2016 3:17pm Creatinine 1.08 mg/dL 0.550-1.3 06/12/2016 1:53pm 06/12/2016 3:17pm NOTE REFERENCE RANGE CHANGE 03/05/15 REFERENCE RANGE CHANGE DUE TO NEW REAGENT PREVIOUS RANGE: 0.6-1.3 mg/dL NEW RANGE: 0.550-1.3 mg/dL BUN/Creatinine Ratio 12.96 12-06/12/2016 1:53pm 06/12/2016 3:17pm Sodium Level 133 mEq/L L 135-155 06/12/2016 1:53pm 06/12/2016 3:17pm Potassium Level 4.2 mEq/L 3.5-5.1 06/12/2016 1:53pm 06/12/2016 3:17pm Chloride Level 97 mEq/L L 98-107 06/12/2016 1:53pm 06/12/2016 3:17pm Carbon Dioxide Level 30 mEq/L 21-32 06/12/2016 1:53pm 06/12/2016 3: 17pm Anion Gap 10.2 10-20 06/12/2016 1:53pm 06/12/2016 3:17pm Calcium Level 9.0 mg/dL 8.2-10.0 06/12/2016 1:53pm 06/12/2016 3:17pm Glomerular Filtration Rate Calc 69 06/12/2016 1:53pm 06/12/2016 3: 17pm At increased risk Risk factors for CKD are present but w/o >90 markers of kidney damage 1 Kidney damage w/ normal or >90 increased GFR 2 Kidney damage w/ mild reduc- 60-89 tion of GFR 3 Moderate reduction of GFR 30-59 4 Severe reduction of GFR 15-29 5 Kidney Failure <15 Total Protein 7.5 gm/dL 6.4-8.2 06/12/2016 1:53pm 06/12/2016 3:17pm Albumin 3.3 gm/dL L 3.4-5.0 06/12/2016 1:53pm 06/12/2016 3:17pm Albumin/Globulin Ratio 0.8 06/12/2016 1:53pm 06/12/2016 3:17pm Total Bilirubin 0.60 mg/dL 0.2-1.0 06/12/2016 1:53pm 06/12/2016 3:17pm Aspartate Amino Transf (AST/SGOT) 26 U/L 15-37 06/12/2016 1:53pm 2015 3:17pm Alanine Aminotransferase (ALT/SGPT) 24 U/L 12-78 06/12/2016 1:53pm 03/2016 3:17pm Alkaline Phosphatase 75.0 U/L 46-116 06/12/2016 1:53pm 06/12/2016 3: 17pm Globulin 4.2 gm/dL 2.0-4.5 06/12/2016 1:53pm 06/12/2016 3:17pm White Blood Count 8.02 K/mm3 4.5-10.5 06/17/2016 6:20am 06/17/2016 6: 32am Red Blood Count 3.31 M/mm3 L 4.60-6.00 06/17/2016 6:20am 06/17/2016 6: 32am Hemoglobin 11.0 gm/dl L 14.0-18.0 06/17/2016 6:20am 06/17/2016 6:32am Hematocrit 32.9 % L 40-54 06/17/2016 6:20am 06/17/2016 6:32am Mean Corpuscular Volume 99.4 fl H 80-94 06/17/2016 6:20am 06/17/2016 6: 32am Mean Corpuscular Hemoglobin 33 pg H 26-32 06/17/2016 6:20am 06/17/2016 6 :32am Mean Corpuscular Hemoglobin Concent 33 g/dl 32-36 06/17/2016 6:20am 08/2016 6:32am Red Cell Distribution-SD 48.9 fL H 35.1-43.9 06/17/2016 6:20am 2015 6:32am RDW Coefficient of Variation 14.1 % 11.5-14.5 06/17/2016 6:20am 2015 6:32am Platelet Count 132 K/mm3 L 150-450 06/17/2016 6:20am 06/17/2016 6:32am Mean Platelet Volume 9.0 fl L 9.4-12.4 06/17/2016 6:20am 06/17/2016 6: 32am Neutrophils (%) (Auto) 66.6 % 50-70 06/17/2016 6:20am 06/17/2016 6: 32am Lymphocytes (%) (Auto) 20.2 % 18-42 06/17/2016 6:20am 06/17/2016 6: 32am Monocytes (%) (Auto) 8.9 % 2-11 06/17/2016 6:20am 06/17/2016 6:32am Eosinophils (%) (Auto) 3.9 % H 1-3 06/17/2016 6:20am 06/17/2016 6:32am Basophils (%) (Auto) 0.4 % 0-2 06/17/2016 6:20am 06/17/2016 6:32am Neutrophils # (Auto) 5.4 2-8 06/17/2016 6:20am 06/17/2016 6:32am Lymphocytes # (Auto) 1.6 1-5 06/17/2016 6:20am 06/17/2016 6:32am Monocytes # (Auto) 0.7 0.1-1.0 06/17/2016 6:20am 06/17/2016 6:32am Eosinophils # (Auto) 0.3 0-0.4 06/17/2016 6:20am 06/17/2016 6:32am Basophils # (Auto) 0.0 K/mm3 0-0.2 06/17/2016 6:20am 06/17/2016 6:32am Urine Color YELLOW STRAW 06/15/2016 1:40pm 06/15/2016 2:12pm Urine Appearance SL CLOUDY CLEAR 06/15/2016 1:40pm 06/15/2016 2:12pm Urine Glucose (UA) NEGATIVE mg/dL NEGATIVE 06/15/2016 1:40pm 2015 2:12pm Urine Bilirubin NEGATIVE NEGATIVE 06/15/2016 1:40pm 06/15/2016 2: 12pm Urine Ketones NEGATIVE mg/dL NEGATIVE 06/15/2016 1:40pm 06/15/2016 2: 12pm Urine Specific [place] 1.015 1.005-1.035 06/15/2016 1:40pm 2015 2:12pm Urine Occult Blood TRACE NEGATIVE 06/15/2016 1:40pm 06/15/2016 2: 12pm Urine pH 6.5 06/15/2016 1:40pm 06/15/2016 2:12pm Urine Protein NEGATIVE mg/dL NEGATIVE 06/15/2016 1:40pm 06/15/2016 2: 12pm Urine Urobilinogen 2.0 E.U./dL NORMAL 06/15/2016 1:40pm 06/15/2016 2: 12pm Urine Nitrate NEGATIVE NEGATIVE 06/15/2016 1:40pm 06/15/2016 2:12pm Urine Leukocyte Esterase 1+ SMALL H NEGATIVE 06/15/2016 1:40pm 2015 2:12pm URINE HAS BEEN SENT FOR CULTURE Urine RBC 1-2 /hpf H NONE 06/15/2016 1:40pm 06/15/2016 2:12pm Urine WBC 15-20 /hpf H NONE 06/15/2016 1:40pm 06/15/2016 2:12pm Urine Squamous Epithelial Cells OCCASSIONAL /lpf OCCASSIONAL 06/15/2016 1:40pm 06/15/2016 2:12pm Urine Bacteria FEW /hpf H NONE 06/15/2016 1:40pm 06/15/2016 2:12pm Urine Hyaline Casts 1-2 /lpf H NONE 06/15/2016 1:40pm 06/15/2016 2:12pm Urine Mucus FEW /lpf H NONE 06/15/2016 1:40pm 06/15/2016 2:12pm Random Glucose 81 mg/dL 70-110 06/17/2016 6:20am 06/17/2016 7:22am Blood Urea Nitrogen 8 mg/dL 03-2306/17/2016 6:20am 06/17/2016 7:22am Creatinine 0.85 mg/dL 0.550-1.3 06/17/2016 6:20am 06/17/2016 7:22am NOTE REFERENCE RANGE CHANGE 03/05/15 REFERENCE RANGE CHANGE DUE TO NEW REAGENT PREVIOUS RANGE: 0.6-1.3 mg/dL NEW RANGE: 0.550-1.3 mg/dL BUN/Creatinine Ratio 9.41 L 09-0406/17/2016 6:20am 06/17/2016 7:22am Sodium Level 139 mEq/L 135-155 06/17/2016 6:20am 06/17/2016 7:22am Potassium Level 3.8 mEq/L 3.5-5.1 06/17/2016 6:20am 06/17/2016 7:22am Chloride Level 104 mEq/L 98-107 06/17/2016 6:20am 06/17/2016 7:22am Carbon Dioxide Level 27 mEq/L 21-32 06/17/2016 6:20am 06/17/2016 7: 22am Anion Gap 11.8 10-06/17/2016 6:20am 06/17/2016 7:22am Calcium Level 8.5 mg/dL 8.2-10.0 06/17/2016 6:20am 06/17/2016 7:22am Glomerular Filtration Rate Calc 90 06/17/2016 6:20am 06/17/2016 7: 22am At increased risk Risk factors for CKD are present but w/o >90 markers of kidney damage 1 Kidney damage w/ normal or >90 increased GFR 2 Kidney damage w/ mild reduc- 60-89 tion of GFR 3 Moderate reduction of GFR 30-59 4 Severe reduction of GFR 15-29 5 Kidney Failure <15 Total Protein 6.0 gm/dL L 6.4-8.2 06/17/2016 6:20am 06/17/2016 7:22am Albumin 2.8 gm/dL L 3.4-5.0 06/17/2016 6:20am 06/17/2016 7:22am Albumin/Globulin Ratio 0.9 06/17/2016 6:20am 06/17/2016 7:22am Total Bilirubin 0.57 mg/dL 0.2-1.0 06/17/2016 6:20am 06/17/2016 7:22am Aspartate Amino Transf (AST/SGOT) 29 U/L 15-37 06/17/2016 6:20am 2015 7:22am Alanine Aminotransferase (ALT/SGPT) 22 U/L 12-78 06/17/2016 6:20am 08/2016 7:22am Alkaline Phosphatase 60.0 U/L 46-116 06/17/2016 6:20am 06/17/2016 7: 22am Urine Culture Result 1 No Growth at 12hrs NONE 06/15/2016 1:40pm 07/2016 7:28am Urine Culture Result 2 No Growth @ 24hrs NONE 06/15/2016 1:40pm 06/16 5:29pm Urine Culture Result 3 No Growth @ 48hrs NONE 06/15/2016 1:40pm 06/17 5:21pm Globulin 3.2 gm/dL 2.0-4.5 06/17/2016 6:20am 06/17/2016 7:22am White Blood Count 28.83 K/mm3 CH 4.5-10.5 06/22/2016 9:25am 06/22/2016 9: 44am CALLED TO THANH WELCH @ 0942 BY JASON Red Blood Count 3.47 M/mm3 L 4.60-6.00 06/22/2016 9:25am 06/22/2016 9: 44am Hemoglobin 11.3 gm/dl L 14.0-18.0 06/22/2016 9:25am 06/22/2016 9:44am Hematocrit 34.7 % L 40-54 06/22/2016 9:25am 06/22/2016 9:44am Mean Corpuscular Volume 100.0 fl H 80-94 06/22/2016 9:25am 06/22/2016 9: 44am Mean Corpuscular Hemoglobin 33 pg H 26-32 06/22/2016 9:25am 06/22/2016 9 :44am Mean Corpuscular Hemoglobin Concent 33 g/dl 32-36 06/22/2016 9:am 9:44am Red Cell Distribution-SD 49.9 fL H 35.1-43.9 06/22/2016 9:am 2015 9:44am RDW Coefficient of Variation 14.0 % 11.5-14.5 06/22/2016 9:am 2015 9:44am Platelet Count 182 K/mm3 150-450 06/22/2016 9:am 06/22/2016 9:44am Mean Platelet Volume 9.3 fl L 9.4-12.4 06/22/2016 9:06/22/2016 9: 44am Neutrophils (%) (Auto) 92.8 % H 50-70 06/22/2016 9:am 06/22/2016 9: 44am Lymphocytes (%) (Auto) 1.6 % L 18-42 06/22/2016 9:am 06/22/2016 9: 44am Monocytes (%) (Auto) 5.4 % 2-11 06/22/2016 9:am 06/22/2016 9:44am Eosinophils (%) (Auto) 0.1 % L 1-3 06/22/2016 9:am 06/22/2016 9:44am Basophils (%) (Auto) 0.1 % 0-2 06/22/2016 9:25am 06/22/2016 9:44am Neutrophils # (Auto) 26.7 H 2-8 06/22/2016 9:25am 06/22/2016 9:44am Lymphocytes # (Auto) 0.5 L 1-5 06/22/2016 9:25am 06/22/2016 9:44am Monocytes # (Auto) 1.6 H 0.1-1.0 06/22/2016 9:25am 06/22/2016 9:44am Eosinophils # (Auto) 0.0 0-0.4 06/22/2016 9:25am 06/22/2016 9:44am Basophils # (Auto) 0.0 K/mm3 0-0.2 06/22/2016 9:25am 06/22/2016 9:44am Neutrophils 67 % 50-70 06/22/2016 9:25am 06/22/2016 9:58am Band Neutrophils 26 % H 0-5 06/22/2016 9:25am 06/22/2016 9:58am Lymphocytes (Manual) 2 % L 18-42 06/22/2016 9:25am 06/22/2016 9:58am Monocytes (Manual) 5 % 2-11 06/22/2016 9:25am 06/22/2016 9:58am Differential Comment NONE NONE 06/22/2016 9:25am 06/22/2016 9:58am Platelet Estimate NORMAL NORMAL 06/22/2016 9:25am 06/22/2016 9:58am Polychromasia 1+ 06/22/2016 9:25am 06/22/2016 9:58am Spherocytes 1+ 06/22/2016 9:25am 06/22/2016 9:58am Random Glucose 96 mg/dL 70-110 06/22/2016 9:25am 06/22/2016 10:01am Blood Urea Nitrogen 20 mg/dL H 7-18 06/22/2016 9:25am 06/22/2016 10: 01am Creatinine 1.09 mg/dL 0.550-1.3 06/22/2016 9:25am 06/22/2016 10:01am NOTE REFERENCE RANGE CHANGE 03/05/15 REFERENCE RANGE CHANGE DUE TO NEW REAGENT PREVIOUS RANGE: 0.6-1.3 mg/dL NEW RANGE: 0.550-1.3 mg/dL BUN/Creatinine Ratio 18.34 12-30 06/22/2016 9:25am 06/22/2016 10: 01am Sodium Level 132 mEq/L L 135-155 06/22/2016 9:25am 06/22/2016 10:01am Potassium Level 4.2 mEq/L 3.5-5.1 06/22/2016 9:25am 06/22/2016 10:01am Chloride Level 96 mEq/L L 98-107 06/22/2016 9:25am 06/22/2016 10:01am Carbon Dioxide Level 26 mEq/L 21-32 06/22/2016 9:25am 06/22/2016 10: 01am Anion Gap 14.2 10-06/22/2016 9:25am 06/22/2016 10:01am Calcium Level 8.7 mg/dL 8.2-10.0 06/22/2016 9:25am 06/22/2016 10:01am Glomerular Filtration Rate Calc 68 06/22/2016 9:25am 06/22/2016 10: 01am At increased risk Risk factors for CKD are present but w/o >90 markers of kidney damage 1 Kidney damage w/ normal or >90 increased GFR 2 Kidney damage w/ mild reduc- 60-89 tion of GFR 3 Moderate reduction of GFR 30-59 4 Severe reduction of GFR 15-29 5 Kidney Failure <15 Total Protein 6.6 gm/dL 6.4-8.2 06/22/2016 9:25am 06/22/2016 10:01am Albumin 2.9 gm/dL L 3.4-5.0 06/22/2016 9:25am 06/22/2016 10:01am Albumin/Globulin Ratio 0.8 06/22/2016 9:25am 06/22/2016 10:01am Total Bilirubin 0.85 mg/dL 0.2-1.0 06/22/2016 9:25am 06/22/2016 10: 01am Aspartate Amino Transf (AST/SGOT) 24 U/L 15-37 06/22/2016 9:25am 2015 10:01am Alanine Aminotransferase (ALT/SGPT) 22 U/L 12-78 06/22/2016 9:25am 10:01am Alkaline Phosphatase 82.0 U/L 46-116 06/22/2016 9:25am 06/22/2016 10: 01am Blood Culture (LAB) No Growth at 12hrs NONE 06/22/2016 10:45am 2015 6:38am Blood Culture Result 2 No Growth at 24hrs NONE 06/22/2016 10:45am 5:23pm Blood Culture Result 3 No Growth at 48hrs NONE 06/22/2016 10:45am 5:33pm Blood Culture Result 4 No Growth at 3 days NONE 06/22/2016 10:45am 6:11pm Blood Culture Result 4 No Growth at 4 days NONE 06/22/2016 10:45am 6:36am Blood Culture (LAB) No Growth at 5 days NONE 06/22/2016 10:45am 06/27 6:25pm Globulin 3.7 gm/dL 2.0-4.5 06/22/2016 9:25am 06/22/2016 10:01am White Blood Count 7.92 K/mm3 4.5-10.5 08/06/2016 6:55am 08/06/2016 7: 36am Red Blood Count 2.70 M/mm3 L 4.60-6.00 08/06/2016 6:55am 08/06/2016 7: 36am Hemoglobin 8.4 gm/dl CL 14.0-18.0 08/06/2016 6:55am 08/06/2016 7:36am PHONED TO LEATHA AT 0733 Repeated by: Zaynab Mccarty 08/06/16 0736 Hematocrit 27.7 % L 40-54 08/06/2016 6:55am 08/06/2016 7:36am Mean Corpuscular Volume 102.6 fl H 80-94 08/06/2016 6:55am 08/06/2016 7: 36am Mean Corpuscular Hemoglobin 31 pg 26-32 08/06/2016 6:55am 08/06/2016 7: 36am Mean Corpuscular Hemoglobin Concent 30 g/dl L 32-36 08/06/2016 6:55am 7:36am Red Cell Distribution-SD 58.2 fL H 35.1-43.9 08/06/2016 6:55am 2015 7:36am RDW Coefficient of Variation 16.1 % H 11.5-14.5 08/06/2016 6:55am 2015 7:36am Platelet Count 236 K/mm3 150-450 08/06/2016 6:55am 08/06/2016 7:36am Mean Platelet Volume 8.8 fl L 9.4-12.4 08/06/2016 6:55am 08/06/2016 7: 36am Neutrophils (%) (Auto) 55.0 % 50-70 08/06/2016 6:55am 08/06/2016 7: 36am Lymphocytes (%) (Auto) 30.9 % 18-42 08/06/2016 6:55am 08/06/2016 7: 36am Monocytes (%) (Auto) 12.2 % H 2-11 08/06/2016 6:55am 08/06/2016 7:36am Eosinophils (%) (Auto) 1.6 % 1-3 08/06/2016 6:55am 08/06/2016 7:36am Basophils (%) (Auto) 0.3 % 0-2 08/06/2016 6:55am 08/06/2016 7:36am Neutrophils # (Auto) 4.4 2-8 08/06/2016 6:55am 08/06/2016 7:36am Lymphocytes # (Auto) 2.5 1-5 08/06/2016 6:55am 08/06/2016 7:36am Monocytes # (Auto) 1.0 0.1-1.0 08/06/2016 6:55am 08/06/2016 7:36am Eosinophils # (Auto) 0.1 0-0.4 08/06/2016 6:55am 08/06/2016 7:36am Basophils # (Auto) 0.0 K/mm3 0-0.2 08/06/2016 6:55am 08/06/2016 7:36am Neutrophils 83 % H 50-70 07/24/2016 6:25am 07/24/2016 7:16am Band Neutrophils 1 % 0-5 07/20/2016 6:15am 07/20/2016 6:47am Lymphocytes (Manual) 16 % L 18-42 07/24/2016 6:25am 07/24/2016 7:16am Monocytes (Manual) 10 % 2-11 07/24/2016 6:25am 07/24/2016 7:16am Eosinophils (Manual) 1 % 1-3 07/24/2016 6:25am 07/24/2016 7:16am Differential Comment NONE NONE 07/20/2016 6:15am 07/20/2016 6:47am Platelet Estimate NORMAL NORMAL 08/06/2016 6:55am 08/06/2016 8:48am Hypochromasia 1+ 08/03/2016 7:00am 08/03/2016 8:08am Poikilocytosis 1+ 07/25/2016 6:35am 07/25/2016 7:45am Basophilic Stippling 2+ 07/15/2016 9:13am 07/15/2016 9:41am Anisocytosis 1+ 08/03/2016 7:00am 08/03/2016 8:08am Macrocytosis 3+ 08/06/2016 6:55am 08/06/2016 8:48am Tear Drop Cells 1+ 08/03/2016 7:00am 08/03/2016 8:08am Ovalocytes 1+ 08/03/2016 7:00am 08/03/2016 8:08am Helmet Cells 1+ 08/03/2016 7:00am 08/03/2016 8:08am Crenated Cell 1+ 08/03/2016 7:00am 08/03/2016 8:08am Urine Color GREEN STRAW 08/05/2016 2:22am 08/05/2016 7:42am Urine Appearance CLOUDY CLEAR 08/05/2016 2:2208/05/2016 7:42am Urine Glucose (UA) 100 mg/dL H NEGATIVE 08/05/2016 2:2208/05/2016 7: 42am Urine Bilirubin NEGATIVE NEGATIVE 08/05/2016 2:2208/05/2016 7: 42am Urine Ketones 5 TRACE mg/dL H NEGATIVE 08/05/2016 2:2208/05/2016 7: 42am Urine Specific [place] 1.020 1.005-1.035 08/05/2016 2:222015 7:42am Urine Occult Blood 2+ MODERATE H NEGATIVE 08/05/2016 2:222015 7:42am Urine pH 8.5 08/05/2016 2:2208/05/2016 7:42am Urine Protein 1+ 30 mg/dL mg/dL H NEGATIVE 08/05/2016 2:2208/05/2016 7:42am Urine Urobilinogen 0.2 E.U./dL NORMAL 08/05/2016 2:2208/05/2016 7: 42am Urine Nitrate NEGATIVE NEGATIVE 08/05/2016 2:08/05/2016 7:42am Urine Leukocyte Esterase TRACE H NEGATIVE 08/05/2016 2:222015 7:45am NO CULTURE SET. WAITING FOR CULTURE RESULTS OF 08/03/16. --- 08/05/16 0745 --- LEUK ISABELLE previously reported as: TRACE H URINE HAS BEEN SENT FOR CULTURE Urine RBC 3-5 /hpf H NONE 08/05/2016 2:2208/05/2016 7:42am Urine WBC 30-50 /hpf H NONE 08/05/2016 2:2208/05/2016 7:42am Urine Squamous Epithelial Cells NONE /lpf OCCASSIONAL 08/05/2016 2:22am 08/05/2016 7:42am Urine Bacteria MANY /hpf H NONE 08/05/2016 2:22am 08/05/2016 7:42am Urine Hyaline Casts 3-5 /lpf H NONE 07/16/2016 9:40am 07/16/2016 10: 22am Urine Amorphous Sediment MODERATE /hpf H NONE 07/16/2016 9:40am 2015 10:22am Urine Amorphous Sediment BUD YEAST W/HYPHAE H NONE 07/19/2016 3:10pm 07/19/2016 3:45pm Urine Yeast FEW /hpf H NONE 08/05/2016 2:22am 08/05/2016 7:42am Total Iron Binding Capacity 85 ug/dL L 250-450 07/22/2016 6:25am 2015 8:52am Percent Iron Saturation 23.0 % 20-50 07/22/2016 6:25am 07/22/2016 8: 52am Iron Level 20 ug/dL L 65-175 07/22/2016 6:25am 07/22/2016 8:52am Random Glucose 85 mg/dL 70-110 08/06/2016 6:55am 08/06/2016 7:41am Blood Urea Nitrogen 11 mg/dL 7-18 08/06/2016 6:55am 08/06/2016 7:41am Creatinine 0.69 mg/dL 0.550-1.3 08/06/2016 6:55am 08/06/2016 7:41am NOTE REFERENCE RANGE CHANGE 03/05/15 REFERENCE RANGE CHANGE DUE TO NEW REAGENT PREVIOUS RANGE: 0.6-1.3 mg/dL NEW RANGE: 0.550-1.3 mg/dL BUN/Creatinine Ratio 15.94 09-0408/06/2016 6:55am 08/06/2016 7:41am Sodium Level 135 mEq/L 135-155 08/06/2016 6:55am 08/06/2016 7:41am Potassium Level 4.0 mEq/L 3.5-5.1 08/06/2016 6:55am 08/06/2016 7:41am Chloride Level 99 mEq/L 98-107 08/06/2016 6:55am 08/06/2016 7:41am Carbon Dioxide Level 30 mEq/L 21-32 08/06/2016 6:55am 08/06/2016 7: 41am Anion Gap 10.0 10-20 08/06/2016 6:55am 08/06/2016 7:41am Calcium Level 8.5 mg/dL 8.2-10.0 08/06/2016 6:55am 08/06/2016 7:41am Glomerular Filtration Rate Calc 115 08/06/2016 6:55am 08/06/2016 7: 41am At increased risk Risk factors for CKD are present but w/o >90 markers of kidney damage 1 Kidney damage w/ normal or >90 increased GFR 2 Kidney damage w/ mild reduc- 60-89 tion of GFR 3 Moderate reduction of GFR 30-59 4 Severe reduction of GFR 15-29 5 Kidney Failure <15 Total Protein 6.2 gm/dL L 6.4-8.2 08/06/2016 6:55am 08/06/2016 7:41am Albumin 2.2 gm/dL L 3.4-5.0 08/06/2016 6:55am 08/06/2016 7:41am Albumin/Globulin Ratio 0.6 08/06/2016 6:55am 08/06/2016 7:41am Total Bilirubin 0.33 mg/dL 0.2-1.0 08/06/2016 6:55am 08/06/2016 7:41am Aspartate Amino Transf (AST/SGOT) 18 U/L 15-37 08/06/2016 6:55am 2015 7:41am Alanine Aminotransferase (ALT/SGPT) 12 U/L 12-78 08/06/2016 6:55am 09/2015 7:41am Alkaline Phosphatase 85.0 U/L 46-116 08/06/2016 6:55am 08/06/2016 7: 41am Vitamin B12 Level 542 pg/mL 211-911 07/22/2016 6:25am 07/22/2016 8: 54am Folate 9.60 ng/mL 07/22/2016 6:25am 07/22/2016 8:54am FOLATE REFERENCE RANGE Greater than 5.38 ng/mL Ferritin 488.8 ng/mL H 22-322 07/22/2016 6:25am 07/22/2016 8:54am FERRITIN REFERENCE RANGE Normal Males: 22-322 ng/mL Normal Females: 10-291 ng/mL Iron deficiency: 0.68-34.5 ng/mL Other anemias: 13.0-1390.8 ng/mL Iron overload: 334.6-8573.0 ng/mL Renal dialysis: 31.3-1321.2 ng/mL Chronic liver disease: 7.9-12,826.0 ng/mL Urine Culture Result 1 Growth detected H NONE 08/03/2016 10:55am 08/04 6:26am Gram Stain Result 1 1+ gram pos cocci /hpf 07/31/2016 6:09pm 2015 7:11pm Gram Stain Result 2 NO WBC'S OBSERVED /hpf 07/31/2016 6:09pm 2015 7:11pm 1+ GRAM NEGATIVE BACILLI ALSO Urine Culture Result 3 Growth detected H NONE 07/23/2016 5:40pm 2015 6:47am Methicillin-Resist S.aureus DNA PCR NONE DETECTED NONE DETECT 2015 7:19pm 07/31/2016 7:25pm Staphylococcus aureus Protein A PCR NONE DETECTED NONE DETECT 2015 7:19pm 07/31/2016 7:25pm Globulin 4.0 gm/dL 2.0-4.5 08/06/2016 6:55am 08/06/2016 7:41am Urine Culture (LAB) See Separate Report 08/03/2016 10:55am 2015 9:47am Aerobic Culture (LAB) See Separate Report 07/31/2016 6:09pm 2015 1:42pm Procedures No known history of procedures. Encounters Encounter Location Arrival/Admit Date Discharge/Depart Date Attending Provider Discharged Inpatient [facility] 07/14/16 2:20pm 08/07/16 10:34am FLORENTINO ERICKSON DO Departed Emergency Room [facility] 06/22/16 9:15am 12:25pm Riya Gallegos Departed Emergency Room [facility] 06/20/16 2:49pm 4:22pm Johnathon Dallas MD Discharged Inpatient [facility] 06/14/16 9:50am 06/17/16 12:55pm FLORENTINO ERICKSON DO Discharged Recurring [facility] 06/12/16 1:45pm 07/06/16 11:59pm FLORENTINO ERICKSON DO Office Visit [facility] 06/12/16 1:00pm FLORENTION ERICKSON DO Registered Practice [facility] 06/12/16 1:00pm FLORENTINO ERICKSON DO Registered Clinic [facility] 05/28/16 10:52am FLORENTINO ERICKSON DO Office Visit [facility] 05/28/16 10:00am FLORENTINO ERICKSON DO Departed Clinic [facility] 05/27/16 2:11pm 05/27/16 11: 59pm FLORENTINO ERICKSON DO Discharged Inpatient [facility] 05/16/16 1:25pm 05/18/16 2 :40pm FLORENTINO ERICKSON DO Discharged Inpatient [facility] 05/13/16 1:05pm 05/16/16 1 :25pm FLORENTINO ERICKSON DO Office Visit [facility] 05/13/16 10:45am Micah Chen Departed Clinic [facility] 05/12/16 8:17am 05/12/16 11: 59pm Chen, Micah A PA Discharged Recurring [facility] 05/07/16 7:29am 06/05/16 11:59pm Micah Chen PA Discharged Recurring [facility] 05/04/16 7:26pm 05/06/16 11:59pm Micah Chen PA Departed Clinic [facility] 04/29/16 11:41am 04/29/16 11: 59pm Micah Chen PA Office Visit [facility] 04/21/16 2:00pm Micah Chen PA Discharged Inpatient (obs) [facility] 04/18/16 1:50pm 6:00pm Librado Perales DO Departed Emergency Room [facility] 04/18/16 10:58am 1:50pm Librado Perales DO Office Visit [facility] 04/15/16 1:00pm Micah hCen PA Departed Clinic [facility] 04/15/16 12:26pm 04/15/16 11: 59pm Micah Chen PA Departed Clinic [facility] 04/08/16 11:18am 04/08/16 11: 59pm Riya Gallegos Departed Clinic [facility] 04/08/16 9:20am 04/08/16 11: 59pm Riya Gallegos Office Visit [facility] 04/08/16 8:30am Riya Gallegos Departed Clinic [facility] 03/24/16 8:54am 03/24/16 11: 59pm Micah Chen PA Departed Clinic [facility] 03/24/16 8:34am 03/24/16 11: 59pm Micah Chen PA Office Visit [facility] 03/24/16 8:30am Micah Chen PA Departed Clinic [facility] 01/16/16 2:37pm 01/16/16 11: 59pm Micah Chen PA Departed Clinic [facility] 01/16/16 2:24pm 01/16/16 11: 59pm Micah Chen Office Visit [facility] 01/16/16 2:15pm Micah Chen Departed Clinic [facility] 01/09/15 9:18am 01/09/15 11: 59pm Micah Chen Office Visit [facility] 01/09/15 8:45am Micah Chen Office Visit [facility] 03/16/11 10:00am Micah Chen Discharged Inpatient (obs) [facility] 02/28/11 2:00am 31/07 11:50am Johnathon Dallas MD Departed Emergency Room [facility] 02/28/11 12:46am 2:00am Johnathon Dallas MD Registered [facility] 10/12/07 1:46pm Recent Diagnosis Diarrhea Nausea & vomiting Repeated falls Sepsis UTI (urinary tract infection) Urinary tract infection Weakness
--- OUTSIDE RECORDS SUMMARY | 2016-11-02 13:43 | XMS REPORT | Continuity of Care Document ---
Author Author [facility] Organization [facility] Address Unknown Phone Unavailable Care Team Providers Care Intellectual Property Paralegal Name Role Phone FLORENTINO ERICKSON DO Primary Care Physician [phone] Insurance Providers Payer Name Policy Number Subscriber Name Relationship s Medicare [id number] Primitivo Yip 18 Self / Same As Patient Formerly [facility] Employee [facility] [id number] Primitivo Yip 18 Self / Same As Patient Chief Complaint and Reason for Visit Chief Complaint Male Urogenital Problems Reason for Visit Sepsis Urinary tract infection [id number] Problems Active Problems Medical Problem Onset Date Status Bladder stone Unknown Acute C. 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 Diarrhea Unknown Acute Falling Unknown Acute Fracture, rib Unknown Acute Nausea & vomiting Unknown Acute Pain Unknown Acute Prostate cancer Unknown Acute Recurrent UTI Unknown Acute Repeated falls Unknown Acute Sepsis Unknown Acute Swelling of face 01/09/2015 Acute UTI (urinary tract infection) Unknown Acute Urinary tract infection Unknown Acute Weakness Unknown Acute Medications Current Home Medications Medication Dose Units Route Directions Days/Qty Instructions Start Date Aspirin 81 Mg 81 Mg Oral Daily @0900 01/09/15 Albuterol Sulfate 18 Gm 2 Puffs Inhalation Every 4-6 Hours As Needed as needed for Shortness Of Breath 01/09/15 Albuterol Sulfate 2.5 Mg/3 Ml 2.5 Mg Nebulizer Three Times A Day 02/18 Guaifenesin 600 Mg 600 Mg Oral As Directed 600 MG ORAL DAILY EVERY MORNING 1200 MG ORAL DAILY EVERY NIGHT 05/18/16 Acetaminophen 650 Mg 650 Mg Oral as needed for Pain 06/14/16 Budesonide 0.5 Mg/2 Ml 0.5 Mg Inhalation Three Times A Day 06/14/16 Nitrofurantoin Monohyd/M-Cryst 100 Mg 100 Mg Oral Daily @0900 Metoprolol Tartrate 50 Mg 25 Mg Oral Daily @09 30 1/ tab 06/16/16 Phenazopyridine Hcl 100 Mg 100 Mg Oral Three Times A Day as needed for Pain 06/22/16 Past Home Medications Medication Directions Ordered Status Guaifenesin 1,200 Mg Tbbp.12hr, 1200 Mg Oral Every 12 Hours 01/09/15 Discontinued Trimethoprim/Sulfamethoxazole 1 Each Tablet, 1 Each Oral Daily @09 Discontinued Cephalexin 500 Mg Capsule, 500 Mg Oral Three Times A Day 01/09/15 Discontinued Budesonide 0.5 Mg/2 Ml Ampul.neb, 0.5 Mg Nebulizer Twice A Day 01/09/15 Discontinued Niacin 500 Mg Tablet, 2 Tab Oral Daily @0901/09/15 Discontinued Ciprofloxacin Hcl 500 Mg Tablet, 500 [...] 50 Mg Tablet, 50 Mg Oral Daily @0900 06/04/16 Discontinued Niacin (Inositol Niacinate) 500 Mg Capsule, 1 Cap Oral Daily @ Hs 06/14/16 Discontinued Social History Query Response Start Date Stop Date Smoking Status Current every day smoker Hospital Discharge Instructions No hospital discharge instructions. Plan of Care Discharge Date 06/22/16 12:25pm Disposition TRANSFER-HIGHER LEVEL OF CARE Condition at Discharge Stable Forms Provided Patient Signature Page Prescriptions See Medication Section Referrals FLORENTINO ERICKSON DO - Additional Instructions/Education transfer to [facility] to c/o Dr. Butler via EMS Functional Status No functional status results. Allergies, Adverse Reactions, Alerts Allergen Type Severity Reaction Status Last Updated Sulfonylureas Adverse Reaction Mild Nausea Active 06/14/16 Amoxicillin Allergy Severe Active 06/14/16 Immunizations Name Given Type ZOSTAVAX 04/08/15 Administered Pneumococcal conjugate PCV 13 06/14/16 Administered Pneumococcal conjugate PCV 13 06/17/16 Administered Vital Signs Acute Vital Signs Vital Response Date/Time Height 6 ft 0 in Weight 130 lb Body Mass Index 17.6 kg/m^2 Ambulatory Vital Signs Vital Response Date/Time [...] Blood Count 3.01 M/mm3 L 4.60-6.00 02/28/2011 6:4702/28/2011 7: 12am Hemoglobin 9.7 gm/dl L 14.0-18.0 [...] Result 1 Growth detected H NONE 01/16/2016 UNK 2015 6:39am Urine Culture Result 3 Growth [...] NEW RANGE: 0.550-1.3 mg/dL BUN/Creatinine Ratio 15.53 12-30 04/18/2016 12:40pm 04/18/2016 1: 06pm Sodium Level [...] 05/12/2016 8:21am 05/12/2016 9: 49am Urine Specific [place] 1.015 1.005-1.035 05/12/2016 8:21am 2015 9:49am Urine Occult Blood 2+ MODERATE H NEGATIVE 05/12/2016 8:21am 2015 9:49am Urine pH 7.0 05/12/2016 8:05/12/2016 9:49am [...] 7:07am Neutrophils # (Auto) 5.3 2-8 05/16/2016 6:4505/16/2016 7:07am Lymphocytes # (Auto) 1.4 1-5 05/16/2016 6:4505/16/2016 7:07am Monocytes # (Auto) 0.8 0.1-1.0 05/16/2016 [...] 05/13/2016 4:30pm 05/13/2016 5: 34pm Urine Specific [place] 1.010 1.005-1.035 05/13/2016 4:30pm 2015 5:34pm Urine [...] NEW RANGE: 0.550-1.3 mg/dL BUN/Creatinine Ratio 12.19 12-05/16/2016 6:45am 05/16/2016 7:17am Sodium Level 133 mEq/L [...] Corpuscular Volume 94.8 fl H 80-94 05/17/2016 6:30am 05/17/2016 7: 09am Mean Corpuscular Hemoglobin 32 pg 26-32 05/17/2016 6:30am 05/17/2016 7: 09am Mean Corpuscular Hemoglobin Concent 34 [...] Basophils # (Auto) 0.0 K/mm3 0-0.2 05/17/2016 6:05/17/2016 7:09am Random Glucose 86 mg/dL 70-110 05/17/2016 6:05/17/2016 7:24am Blood Urea Nitrogen 11 mg/dL 7-18 05/17/2016 6:30am 05/17/2016 7:24am Creatinine 0.95 mg/dL # 0.550-1.3 05/17/2016 6:3005/17/2016 7:24am NOTE REFERENCE RANGE CHANGE 03/05/15 REFERENCE RANGE CHANGE DUE TO NEW REAGENT PREVIOUS RANGE: 0.6-1.3 mg/dL NEW RANGE: 0.550-1.3 mg/dL BUN/Creatinine Ratio 11.57 L 12-05/17/2016 6:30am 05/17/2016 7: 24am Sodium Level 132 mEq/L L 135-155 05/17/2016 6:30am 05/17/2016 7:24am Potassium Level 3.8 mEq/L 3.5-5.1 05/17/2016 6:30am 05/17/2016 7:24am Chloride Level 99 mEq/L 98-107 05/17/2016 6:30am 05/17/2016 7:24am Carbon Dioxide Level 30 mEq/L 21-32 05/17/2016 6:30am 05/17/2016 7: 24am Anion Gap 6.8 L 10-20 05/17/2016 6:30am 05/17/2016 7:24am Calcium Level 8.7 mg/dL 8.2-10.0 05/17/2016 6:30am 05/17/2016 7:24am Glomerular Filtration Rate Calc 80 05/17/2016 6:30am 05/17/2016 7: 24am At increased risk Risk factors [...] 7:24am Albumin 3.1 gm/dL L 3.4-5.0 05/17/2016 6:30am 05/17/2016 7:24am Albumin/Globulin Ratio 0.9 05/17/2016 6:30am 05/17/2016 7:24am Total Bilirubin 0.58 mg/dL 0.2-1.0 05/17/2016 6:30am 05/17/2016 7:24am Aspartate Amino Transf (AST/SGOT) 29 U/L [...] NEGATIVE 05/27/2016 2:1105/27/2016 3: 16pm Urine Specific [place] 1.010 1.005-1.035 05/27/2016 2:112015 3:16pm Urine Occult Blood 2+ MODERATE H NEGATIVE 05/27/2016 2:2015 3:16pm Urine pH 7.0 05/27/2016 2:1105/27/2016 3:16pm Urine Protein 1+ 30 mg/dL mg/dL H NEGATIVE 05/27/2016 2:1105/27/2016 3:16pm Urine Urobilinogen 0.2 E.U./dL NORMAL 05/27/2016 2:1105/27/2016 3: 16pm Urine Nitrate POSITIVE H NEGATIVE 05/27/2016 2:1105/27/2016 3:16pm URINE HAS BEEN SENT FOR CULTURE Urine Leukocyte Esterase 3+ LARGE H NEGATIVE 05/27/2016 2:112015 3:16pm URINE HAS BEEN SENT FOR CULTURE Urine RBC 6-10 /hpf H NONE 05/27/2016 2:05/27/2016 3:16pm Urine WBC 50+ /hpf H NONE 05/27/2016 2:1105/27/2016 3:16pm Urine Squamous Epithelial Cells OCCASSIONAL /lpf OCCASSIONAL 05/27/2016 2:1105/27/2016 3:16pm Urine Bacteria FEW /hpf H NONE 05/27/2016 2:1105/27/2016 3:16pm Urine Culture Result 1 Growth detected H NONE 05/27/2016 2:2015 6:37am Urine Culture Result 3 Growth detected H NONE 05/27/2016 2:2015 6:37am Urine Culture (LAB) See Separate Report 05/27/2016 2:112015 1:08pm White Blood Count 7.89 K/mm3 4.5-10.5 [...] NEW RANGE: 0.550-1.3 mg/dL BUN/Creatinine Ratio 12.96 12-30 06/12/2016 1:53pm 06/12/2016 3:17pm Sodium Level 133 mEq/L [...] 32am Hemoglobin 11.0 gm/dl L 14.0-18.0 06/17/2016 6:2006/17/2016 6:32am Hematocrit 32.9 % L 40-54 06/17/2016 6:20am 06/17/2016 6:32am Mean Corpuscular Volume 99.4 fl H 80-94 06/17/2016 6:20am 06/17/2016 6: 32am Mean Corpuscular Hemoglobin 33 pg H 26-32 06/17/2016 6:20am 06/17/2016 6 :32am Mean Corpuscular Hemoglobin Concent 33 g/dl 32-36 06/17/2016 6:20am 08/2016 6:32am Red Cell Distribution-SD 48.9 fL H 35.1-43.9 06/17/2016 6:202015 6:32am RDW Coefficient of Variation 14.1 % [...] 06/15/2016 1:40pm 06/15/2016 2: 12pm Urine Specific [place] 1.015 1.005-1.035 06/15/2016 1:40pm 2015 2:12pm Urine [...] 6:20am 06/17/2016 7: 22am Anion Gap 11.8 10-20 06/17/2016 6:20am 06/17/2016 7:22am Calcium Level 8.5 mg/dL [...] 9: 44am CALLED TO THANH WELCH @ 0948 BY JASON Red Blood Count 3.47 M/mm3 [...] Corpuscular Hemoglobin Concent 33 g/dl 32-36 06/22/2016 9: 9:44am Red Cell Distribution-SD 49.9 fL H 35.1-43.9 06/22/2016 9:am 2015 9:44am RDW Coefficient of Variation 14.0 % 11.5-14.5 06/22/2016 9:25am 2015 9:44am Platelet Count 182 K/mm3 150-450 06/22/2016 9:25am 06/22/2016 9:44am Mean Platelet Volume 9.3 fl L 9.4-12.4 06/22/2016 9:25am 06/22/2016 9: 44am Neutrophils (%) (Auto) 92.8 % H 50-70 06/22/2016 9:am 06/22/2016 9: 44am Lymphocytes (%) (Auto) 1.6 % L 18-42 06/22/2016 9:06/22/2016 9: 44am Monocytes (%) (Auto) 5.4 % 2-11 06/22/2016 9:25am 06/22/2016 9:44am Eosinophils (%) (Auto) 0.1 % L 1-3 06/22/2016 9:06/22/2016 9:44am Basophils (%) (Auto) 0.1 % 0-2 06/22/2016 9:am 06/22/2016 9:44am Neutrophils # (Auto) 26.7 H 2-8 06/22/2016 9:06/22/2016 9:44am Lymphocytes # (Auto) 0.5 L 1-5 06/22/2016 9:25am 06/22/2016 9:44am Monocytes # (Auto) 1.6 H 0.1-1.0 06/22/2016 9:am 06/22/2016 9:44am Eosinophils # (Auto) 0.0 0-0.4 [...] NEW RANGE: 0.550-1.3 mg/dL BUN/Creatinine Ratio 18.34 12-06/22/2016 9:25am 06/22/2016 10: 01am Sodium Level 132 mEq/L L 135-155 06/22/2016 9:25am 06/22/2016 10:01am Potassium Level 4.2 mEq/L 3.5-5.1 06/22/2016 9:25am 06/22/2016 10:01am Chloride Level 96 mEq/L L 98-107 06/22/2016 9:25am 06/22/2016 10:01am Carbon Dioxide Level 26 mEq/L 21-32 06/22/2016 9:25am 06/22/2016 10: 01am Anion Gap 14.2 10-20 06/22/2016 9:25am 06/22/2016 10:01am Calcium Level 8.7 mg/dL [...] at 4 days NONE 06/22/2016 10:45am 6:36am Globulin 3.7 gm/dL 2.0-4.5 06/22/2016 9:25am 06/22/2016 10:01am Procedures No known history of procedures. Encounters Encounter Location Arrival/Admit Date Discharge/Depart Date Attending Provider Departed Emergency Room [facility] 06/22/16 9:15am 12:25pm Riya Gallegos Departed Emergency Room [facility] 06/20/16 2:49pm 4:22pm Johnathon Dallas MD Discharged Inpatient [facility] 06/14/16 9:50am 06/17/16 12:55pm FLORENTINO ERICKSON DO Registered Recurring [facility] 06/12/16 1:45pm FLORENTINO ERICKSON DO Office Visit [facility] 06/12/16 1:00pm FLORENTINO ERICKSON DO Registered Practice [facility] 06/12/16 1:00pm FLORENTINO ERICKSON DO Registered Clinic [facility] 05/28/16 10:52am FLROENTINO ERICKSON DO Office Visit [facility] 05/28/16 10:00am FLORENTINO ERICKSON DO Departed Clinic [facility] 05/27/16 2:11pm 05/27/16 11: 59pm FLORENTINO ERICKSON DO Discharged Inpatient [facility] 05/16/16 1:25pm 05/18/16 2 :40pm FLORENTINO ERICKSON DO Discharged Inpatient [facility] 05/13/16 1:05pm 05/16/16 1 :25pm FLORENTINO ERICKSON DO Office Visit [facility] 05/13/16 10:45am Micah Chen PA Departed Clinic [facility] 05/12/16 8:17am 05/12/16 11: 59pm Micah Chen PA Discharged Recurring [facility] 05/07/16 7:29am 06/05/16 11:59pm Micah Chen PA Discharged Recurring [facility] 05/04/16 7:26pm 05/06/16 11:59pm Micah Chen PA Registered Clinic [facility] 04/29/16 11:41am Micah Chen PA Office Visit [facility] 04/21/16 2:00pm Micah Chen PA Discharged Inpatient (obs) [facility] 04/18/16 1:50pm 6:00pm Librado Perales DO Departed Emergency Room [facility] 04/18/16 10:58am 1:50pm Librado Perales DO Office Visit [facility] 04/15/16 1:00pm Micah Chen PA Departed Clinic [facility] 04/15/16 12:26pm 04/15/16 11: 59pm Micah Chen PA Departed Clinic [facility] 08/03/16 11:18am 04/08/16 11: 59pm Riya Gallegos Departed Clinic [facility] 04/08/16 9:20am 04/08/16 11: 59pm Riya Gallegos Office Visit [facility] 04/08/16 8:30am Riya Gallegos Departed Clinic [facility] 03/24/16 8:54am 03/24/16 11: 59pm Micah Chen PA Departed Clinic [facility] 03/24/16 8:34am 03/24/16 11: 59pm Micah Chen PA Office Visit [facility] 03/24/16 8:30am Micah Chen PA Departed Clinic [facility] 01/16/16 2:37pm 01/16/16 11: 59pm Micah Chen PA Departed Clinic [facility] 01/16/16 2:24pm 01/16/16 11: 59pm Micah Chen PA Office Visit [facility] 01/16/16 2:15pm Micah Chen PA Departed Clinic [facility] 01/09/15 9:18am 01/09/15 11: 59pm Micah Chen PA Office Visit [facility] 01/09/15 8:45am Micah Chen PA Office Visit [facility] 03/16/11 10:00am Micah Chen PA Discharged Inpatient (obs) [facility] 02/28/11 2:00am 31/07 11:50am Johnathon Dallas MD Departed Emergency Room [facility] 02/28/11 12:46am 2:00am Johnathon Dallas MD Registered Surgical Day Care [facility] 10/12/07 1:46pm Recent Diagnosis
--- OUTSIDE RECORDS SUMMARY | 2016-11-02 13:43 | XMS REPORT | Referral Summary ---
Author Author [facility] Organization [facility] Address Unknown Phone Unavailable Care Team Providers Care Refrigerator Mover Name Role Phone Allan James Primary Care Physician [phone] Encounter VC Date(s): 03/07/15 - 03/07/15 [facility] [address] [place] [id number] [facility] Discharge Diagnosis: Hypothyroid Discharge Disposition: 01-Home or [...] 90 tabs, 9 Refill(s) , KALIE, eRx: [facility] #[id number], TAKE ONE TABLET BY MOUTH EVERY MORNING [...] hormone). This hormone tells the thyroid to inspector returned materials more hormone. SYMPTOMS Lethargy (feeling as though [...] 11/14/2012 Document Reviewed: [employer] Patient Information 2014 [employer]. No follow up information was provided.
--- OUTSIDE RECORDS SUMMARY | 2016-11-02 13:43 | XMS REPORT | Continuity of Care Document ---
Author Author [facility] Organization [facility] Address Unknown Phone Unavailable Support Name Relationship Address Phone Micah Chen Caregiver [address] [place] [address] JESUS MANUEL A[place] [address] Insurance Providers Payer Name Policy Number Subscriber Name Relationship Wps Medicare [id number] Primitivo Yip 18 Self / Same As Patient [employer] [id number] Primitivo Yip 18 Self / Same As [...] History No social history. Hospital Discharge Instructions No hospital discharge instructions. Plan of Care Discharge Date 05/12/16 11:59pm Prescriptions See Medication Section Functional Status No functional status results. Allergies, [...] 6:47am 02/28/2011 7:41am BUN/Creatinine Ratio 7.8 L 12-30 02/28/2011 [...] 7:41am Alkaline Phosphatase 84.0 U/L 50-136 02/28/2011 6:4702/28/2011 7: 41am Globulin 3.3 gm/dL 2.0-4.5 02/28/2011 [...] 04/08/2016 9:23am 04/08/2016 9: 44am Urine Specific [place] 1.015 1.005-1.035 04/08/2016 9:23am 2015 9:44am Urine [...] 04/18/2016 12:30pm 04/18/2016 12: 58pm Urine Specific [place] 1.015 1.005-1.035 04/18/2016 12:30pm 2015 12:58pm Urine [...] 04/29/2016 12:02pm 04/29/2016 12: 17pm Urine Specific [place] 1.020 1.005-1.035 04/29/2016 12:02pm 2015 12:17pm Urine [...] 2015 1:44am Urine Color YELLOW STRAW 05/12/2016 8:2105/12/2016 9:49am Urine Appearance TURBID CLEAR 05/12/2016 8:05/12/2016 9:49am Urine Glucose (UA) NEGATIVE mg/dL NEGATIVE 05/12/2016 8:2015 9:49am Urine Bilirubin NEGATIVE NEGATIVE 05/12/2016 8:05/12/2016 9: 49am Urine Ketones NEGATIVE mg/dL NEGATIVE 05/12/2016 8:05/12/2016 9: 49am Urine Specific [place] 1.015 1.005-1.035 05/12/2016 8:212015 9:49am Urine Occult Blood 2+ MODERATE H NEGATIVE 05/12/2016 8:212015 9:49am Urine pH 7.0 05/12/2016 8:21am 05/12/2016 9:49am Urine Protein 1+ 30 mg/dL mg/dL H NEGATIVE 05/12/2016 8:2105/12/2016 9:49am Urine Urobilinogen 0.2 E.U./dL NORMAL 05/12/2016 8:21am 05/12/2016 9: 49am Urine Nitrate POSITIVE H NEGATIVE 05/12/2016 8:am 05/12/2016 9:49am URINE HAS BEEN SENT FOR CULTURE Urine Leukocyte Esterase 2+ MODERATE H NEGATIVE 05/12/2016 8:21am 02/2016 9:49am URINE HAS BEEN SENT FOR CULTURE Urine RBC 30-50 /hpf H NONE 05/12/2016 8:am 05/12/2016 9:49am Urine WBC 30-50 /hpf H NONE 05/12/2016 8:21am 05/12/2016 9:49am Urine Squamous Epithelial Cells OCCASSIONAL /lpf OCCASSIONAL 05/12/2016 8:21am 05/12/2016 9:49am Urine Bacteria MODERATE /hpf H NONE 05/12/2016 8:21am 05/12/2016 9:49am Urine Hyaline Casts 0-1 /lpf H NONE 05/12/2016 8:21am 05/12/2016 9:49am Urine Fine Granular Casts 0-1 /lpf H NONE 05/12/2016 8:21am 05/12/2016 9 :49am Urine Mucus OCCASSIONAL /lpf H NONE 05/12/2016 8:am 05/12/2016 9:49am Urine Culture Result 1 Growth detected H NONE 05/12/2016 8:21am 2015 6:41am Urine Culture Result 3 Growth detected H NONE 05/12/2016 8:21am 2015 6:41am Procedures No known history of procedures. Encounters Encounter Location Arrival/Admit Date Discharge/Depart Date Attending Provider Departed Clinic [facility] 05/12/16 8:17am 05/12/16 11: 59pm Micah Chen PA Registered [facility] 05/07/16 7:29am Micah Chen PA Discharged Recurring [facility] 05/04/16 7:26pm 05/06/16 11:59pm Micah Chen PA Registered Clinic [facility] 04/29/16 11:41am Micah Chen PA Office Visit [facility] 08/16/16 2:00pm Micah Chen Registered Practice [facility] 04/21/16 2:00pm Micah Chen PA Discharged Inpatient (obs) [facility] 04/18/16 1:50pm 6:00pm Librado Perales DO Departed Emergency Room [facility] 04/18/16 10:58am 1:50pm Librado Perales DO Office Visit [facility] 04/15/16 1:00pm Micah Chen PA Departed Clinic [facility] 04/15/16 12:26pm 04/15/16 11: 59pm Micah Chen Departed Clinic [facility] 04/08/16 11:18am 04/08/16 11: 59pm Riya Gallegos Departed [facility] 04/08/16 9:20am 04/08/16 11: 59pm Riya Gallegos Office Visit [facility] 04/08/16 8:30am Riya Gallegos Departed Clinic [facility] 03/24/16 8:54am 03/24/16 11: 59pm Micah Chen PA Departed Clinic [facility] 03/24/16 8:34am 03/24/16 11: 59pm Micah Chen PA Office Visit [facility] 03/24/16 8:30am Micah Chen PA Departed Clinic [facility] 01/16/16 2:37pm 01/16/16 11: 59pm Micah Chen PA Departed Clinic [facility] 01/16/16 2:24pm 01/16/16 11: 59pm Micah Chen PA Office Visit [facility] 01/16/16 2:15pm Micah Chen PA Departed Clinic [facility] 01/09/15 9:18am 01/09/15 11: 59pm Micah Chen PA Office Visit [facility] 01/09/15 8:45am Micah Chen Office Visit [facility] 03/16/11 10:00am Micah Chen Discharged Inpatient (obs) [facility] 02/28/11 2:00am 31/07 11:50am Johnathon Dallas MD Departed Emergency Room [facility] 02/28/11 12:46am 2:00am Johnathon Dallas MD Registered Surgical Day Care [facility] 10/12/07 1:46pm
--- OUTSIDE RECORDS SUMMARY | 2016-11-02 13:43 | XMS REPORT | Continuity of Care Document ---
Author Author [facility] Organization [facility] Address Unknown Phone Unavailable Support Name Relationship Address Phone FLORENTINO ERICKSNO DO Caregiver [address] [place] [address] JESUS MANUEL [place] [address] Insurance Providers Payer Name Policy Number Subscriber Name Relationship s Medicare [id number] Primitivo Yip 18 Self / Same As Patient [facility] Employee [facility] [id number] Primitivo Yip 18 Self / Same As Patient Chief Complaint and Reason for Visit Reason for Visit Falling Prostate cancer UTI (urinary tract infection) Weakness Problems Active Problems Medical Problem Onset [...] 81 Mg 81 Mg Oral Daily @89901/09/15 Albuterol Sulfate 18 Gm 2 Puffs Inhalation Every 4-6 Hours As Needed as needed for Shortness Of Breath 01/09/15 Albuterol Sulfate 2.5 Mg/3 Ml 2.5 Mg Nebulizer Three Times A Day 02/18 Budesonide 0.5 Mg/2 Ml 0.5 Mg Nebulizer Twice A Day 01/09/15 Metoprolol Tartrate 100 Mg 100 Mg Oral Daily @89901/09/15 Metronidazole 500 Mg 500 Mg Oral Three Times A Day 10 Days 05/18/16 Lactose-Free Food 237 Ml 1 Bottle Oral Three Times A Day 05/18/16 Guaifenesin 600 Mg 600 Mg Oral As Directed 600 MG ORAL DAILY EVERY MORNING 1200 MG ORAL DAILY EVERY NIGHT 05/18/16 Niacinamide 500 Mg 250 Mg Oral Twice A Day 05/18/16 Past Home Medications Medication Directions Ordered Status [...] Oral As Directed 05/13/16 Discontinued Social History Query Response Start Date Stop Date Smoking Status Current every day smoker Hospital Discharge Instructions PHYSICIAN DISCHARGE ORDERS Homecare Instructions ACTIVITY ORDERS: Activity: No restrictions Normal activity as carla DIET ORDERS: Diet: Regular Home Health: Home Health: [facility] WEIGHT MONITORING: Weight Monitoring: Weekly Take Wt. Log to Dr. jethro HORNE ON DISMISSAL Valuables returned on D/C Patient verifies return of all valuables on discharge: Yes Plan of Care Discharge Date 05/18/16 2:40pm Disposition HOME with HOME HEALTH SERVICES Instructions/Education Provided Urinary Tract Infection in Men (DC) Chronic Obstructive Pulmonary Disease (DC) Prescriptions See Medication Section Referrals FLORENTINO ERICKSON DO (Medical) - IN 1 WEEK Address: [facility] [place] [address] Reason(s) for Referral: Weakness C. difficile diarrhea COPD (chronic obstructive pulmonary disease) UTI (urinary tract infection) Hospital discharge follow-up Care Plan and Goals Functional Status No functional status results. Allergies, Adverse Reactions, Alerts Allergen Type Severity Reaction Status Last Updated Sulfonylureas Allergy Unknown Active 09/04/08 Amoxicillin Allergy Unknown Active 09/04/08 Immunizations Name Given Type ZOSTAVAX 04/08/15 Administered Vital Signs Acute Vital Signs Vital Response Date/Time Height 6 ft 0 in Weight 142 lb Body Mass Index 19.3 kg/m^2 Ambulatory Vital Signs Vital Response Date/Time Height 6 ft 05/13/2016 10:53am Weight 139 lbs 6 oz 05/13/2016 10:53am Temperature, Temporal 98.5 degrees F 05/13/2016 10:53am Blood Pressure, Sitting, Left Arm 112/70 mm Hg 05/13/2016 10:53am Pulse Rate 86 bpm 05/13/2016 10:53am Respiration Rate 20 bpm 05/13/2016 10:53am Body Surface Area 1.78 m2 05/13/2016 10:53am Body Mass Index 18.9 kg/m2 05/13/2016 10:53am Pulse Oximetry Pulse Oximetry 05/13/2016 10:53am Results Laboratory Results Test Name Result Units [...] 6:4702/28/2011 7:41am Blood Urea Nitrogen 7 mg/dL 7-18 [...] 6:47am 02/28/2011 7: 41am Anion Gap 11.5 10-02/28/2011 6:47am 02/28/2011 7:41am Calcium Level 8.6 mg/dL [...] White Blood Count 9.13 K/mm3 4.5-10.5 01/09/2015 9:24am 01/09/2015 11: 40am Red Blood Count 3.90 M/mm3 L 4.60-6.00 01/09/2015 9:24am 01/09/2015 11: 40am Hemoglobin 13.2 gm/dl L 14.0-18.0 01/09/2015 9:24am 01/09/2015 11:40am Hematocrit 38.9 % L 40-54 01/09/2015 [...] 11:40am Eosinophils # (Auto) 0.2 0-0.4 01/09/2015 9:2401/09/2015 11:40am Basophils # (Auto) 0.0 K/mm3 0-0.2 01/09/2015 9:01/09/2015 11: 40am Random Glucose 79 mg/dL 70-110 01/09/2015 9:01/09/2015 11:07am Blood Urea Nitrogen 11 mg/dL 7-18 01/09/2015 9:01/09/2015 11:07am Creatinine 1.2 mg/dL 0.6-1.3 01/09/2015 9:2401/09/2015 11:07am BUN/Creatinine Ratio 9.2 L 12-30 01/09/2015 [...] 11:07am Glomerular Filtration Rate Calc 61 01/09/2015 9:2401/09/2015 11: 07am At increased risk Risk factors [...] 04/08/2016 9:23am 04/08/2016 9: 44am Urine Specific [place] 1.015 1.005-1.035 04/08/2016 9:23am 2015 9:44am Urine [...] 04/18/2016 12:30pm 04/18/2016 12: 58pm Urine Specific [place] 1.015 1.005-1.035 04/18/2016 12:30pm 2015 12:58pm Urine [...] 04/29/2016 12:02pm 04/29/2016 12: 17pm Urine Specific [place] 1.020 1.005-1.035 04/29/2016 12:02pm 2015 12:17pm Urine [...] 2015 1:44am Urine Color YELLOW STRAW 05/12/2016 8:05/12/2016 9:49am Urine Appearance TURBID CLEAR 05/12/2016 8:05/12/2016 9:49am Urine Glucose (UA) NEGATIVE mg/dL NEGATIVE 05/12/2016 8:2015 9:49am Urine Bilirubin NEGATIVE NEGATIVE 05/12/2016 8:05/12/2016 9: 49am Urine Ketones NEGATIVE mg/dL NEGATIVE 05/12/2016 8:05/12/2016 9: 49am Urine Specific [place] 1.015 1.005-1.035 05/12/2016 8:2015 9:49am Urine Occult [...] Coefficient of Variation 13.9 % 11.5-14.5 05/16/2016 6:45am 2015 7:07am Platelet Count 163 K/mm3 150-450 05/16/2016 6:45am 05/16/2016 7:07am Mean Platelet Volume 8.8 fl L [...] 05/13/2016 4:30pm 05/13/2016 5: 34pm Urine Specific [place] 1.010 1.005-1.035 05/13/2016 4:30pm 2015 5:34pm Urine [...] NEW RANGE: 0.550-1.3 mg/dL BUN/Creatinine Ratio 12.19 09-0405/16/2016 6:45am 05/16/2016 7:17am Sodium Level 133 mEq/L [...] See Separate Report 05/13/2016 5:25pm 2015 1:40pm White Blood Count 8.73 K/mm3 4.5-10.5 05/17/2016 6:3005/17/2016 7: 09am Red Blood Count 3.66 M/mm3 L 4.60-6.00 05/17/2016 6:3005/17/2016 7: 09am Hemoglobin 11.7 gm/dl L 14.0-18.0 05/17/2016 6:3005/17/2016 7:09am Hematocrit 34.7 % L 40-54 05/17/2016 6:3005/17/2016 7:09am Mean Corpuscular Volume 94.8 fl H 80-94 05/17/2016 6:3005/17/2016 7: 09am Mean Corpuscular Hemoglobin 32 pg 26-32 05/17/2016 6:3005/17/2016 7: 09am Mean Corpuscular Hemoglobin Concent 34 g/dl 32-36 05/17/2016 6:3007/2016 7:09am Red Cell Distribution-SD 46.1 fL H 35.1-43.9 05/17/2016 6:302015 7:09am RDW Coefficient of Variation 13.9 % 11.5-14.5 05/17/2016 6:302015 7:09am Platelet Count 185 K/mm3 150-450 05/17/2016 6:3005/17/2016 7:09am Mean Platelet Volume 9.2 fl L 9.4-12.4 05/17/2016 6:3005/17/2016 7: 09am Neutrophils (%) (Auto) 65.3 % 50-70 05/17/2016 6:3005/17/2016 7: 09am Lymphocytes (%) (Auto) 20.8 % [...] 6:05/17/2016 7:24am Blood Urea Nitrogen 11 mg/dL -05/17/2016 6:05/17/2016 7:24am Creatinine 0.95 mg/dL # 0.550-1.3 05/17/2016 6:05/17/2016 7:24am NOTE REFERENCE RANGE CHANGE 03/05/15 REFERENCE RANGE CHANGE DUE TO NEW REAGENT PREVIOUS RANGE: 0.6-1.3 mg/dL NEW RANGE: 0.550-1.3 mg/dL BUN/Creatinine Ratio 11.57 L -05/17/2016 6:05/17/2016 7: 24am Sodium Level 132 mEq/L L 135-155 05/17/2016 6:05/17/2016 7:24am Potassium Level 3.8 mEq/L 3.5-5.1 05/17/2016 6:3005/17/2016 7:24am Chloride Level 99 mEq/L 98-107 05/17/2016 6:05/17/2016 7:24am Carbon Dioxide Level 30 mEq/L 21-32 [...] 3.6 gm/dL 2.0-4.5 05/17/2016 6:30am 05/17/2016 7:24am Procedures No known history of procedures. Encounters Encounter Location Arrival/Admit Date Discharge/Depart Date Attending Provider Discharged Inpatient [facility] 05/16/16 1:25pm 05/18/16 2 :40pm FLORENTINO ERICKSON DO Discharged Inpatient [facility] 05/13/16 1:05pm 05/16/16 1 :25pm FLORENTINO ERICKSON DO Office Visit [facility] [place] 05/13/16 10:45am Micah Chen Registered Practice [facility] 05/13/16 10:45am Micah Chen Departed Clinic [facility] 05/12/16 8:17am 05/12/16 11: 59pm Micah Chen PA Registered Recurring [facility] 05/07/16 7:29am Micah Chen PA Discharged Recurring [facility] 05/04/16 7:26pm 05/06/16 11:59pm Micah Chen Registered Clinic [facility] 04/29/16 11:41am Micah Chen PA Office Visit [facility] [place] 04/21/16 2:00pm Micah Chen PA Discharged Inpatient (obs) [facility] 04/18/16 1:50pm 6:00pm Librado Perales DO Departed Emergency Room [facility] 04/18/16 10:58am 1:50pm Librado Perales DO Office Visit [facility] [place] 04/15/16 1:00pm Micah Chen PA Departed Clinic [facility] 04/15/16 12:26pm 04/15/16 11: 59pm Micah Chen PA Departed Clinic [facility] 04/08/16 11:18am 04/08/16 11: 59pm Riya Gallegos Departed Clinic [facility] 04/08/16 9:20am 04/08/16 11: 59pm Riya Gallegos Office Visit [facility] [place] 04/08/16 8:30am Riya Gallegos Departed Clinic [facility] 03/24/16 8:54am 03/24/16 11: 59pm Micah Chen PA Departed Clinic [facility] 03/24/16 8:34am 03/24/16 11: 59pm Micah Chen PA Office Visit [facility] [place] 03/24/16 8:30am Micah Chen PA Departed Clinic [facility] 01/16/16 2:37pm 01/16/16 11: 59pm Micah Chen PA Departed Clinic [facility] 01/16/16 2:24pm 01/16/16 11: 59pm Micah Chen PA Office Visit [facility] [place] 01/16/16 2:15pm Micah Chen PA Departed Clinic [facility] 01/09/15 9:18am 01/09/15 11: 59pm Micah Chen PA Office Visit [facility] [place] 01/09/15 8:45am Micah Chen Office Visit [facility] [place] 03/16/11 10:00am Micah Chen Discharged Inpatient (obs) [facility] 02/28/11 2:00am 31/07 11:50am Johnathon Dallas MD Departed Emergency Room [facility] 02/28/11 12:46am 2:00am Johnathon Dallas MD Registered Surgical Day Care [facility] 10/12/07 1:46pm Recent Diagnosis Falling Prostate cancer UTI (urinary tract infection) Weakness
--- OUTSIDE RECORDS SUMMARY | 2016-11-02 13:44 | XMS REPORT | Continuity of Care Document ---
Author Author [facility] Organization [facility] Address Unknown Phone Unavailable Support Name Relationship Address Phone KATARINA YIP Next Of Kin [address] [place] [id number] Insurance Providers Payer Name Policy Number Subscriber Name Relationship Wps Medicare [id number] PhiPrimitivo 18 Self / Same As Patient [employer] [id number] Primitivo Yip 18 Self / Same As Patient Problems Active Problems Medical Problem Onset Date Status Swelling of face 01/09/2015 Acute Medications Current Home Medications Medication Dose Units Route Directions Days/Qty Instructions Start Date Aspirin 81 Mg 81 Mg Oral Daily @0901/09/15 Guaifenesin 1,200 Mg 1,200 Mg Oral Every 12 Hours 01/09/15 Albuterol Sulfate 18 Gm 2 Puffs Inhalation Every 4-6 Hours As Needed 01/09/15 Albuterol Sulfate 2.5 Mg/3 Ml 2.5 Mg Nebulizer Three Times A Day 02/18 Budesonide 0.5 Mg/2 Ml 0.5 Mg Nebulizer Twice A Day 01/09/15 Niacin 500 Mg 500 Mg Oral 2TABS Daily 01/09/15 Metoprolol Tartrate 100 Mg 100 Mg Oral Daily @0901/09/15 Trimethoprim/Sulfamethoxazole 1 Each 1 Each Oral Twice A Day 20 Ciprofloxacin Hcl 500 Mg 500 Mg Oral Twice A Day 28 04/15/16 Hydrocodone/Acetaminophen 5/325 1 Each 1 Tab Oral Every 6 Hours as needed for Pain 20 RX [id number] 04/15/16 Past Home Medications Medication Directions Ordered Status Trimethoprim/Sulfamethoxazole 1 Each Tablet, 1 Each Oral Daily @09 Discontinued Cephalexin 500 Mg Capsule, 500 Mg Oral Three Times A Day 01/09/15 Discontinued Ciprofloxacin Hcl 500 Mg Tablet, 500 Mg Oral Twice A Day 01/16/16 Discontinued Ciprofloxacin Hcl 500 Mg Tablet, 500 Mg Oral Twice A Day 03/24/16 Discontinued Social History Query Response Start Date Stop Date Smoking Status Current some day smoker Hospital Discharge Instructions Current inpatient/outpatient. Discharge instructions are currently unavailable. Plan of Care Prescriptions Follow-up Orders Ribs Unilateral W Sherice Functional Status No functional status results. Allergies, Adverse Reactions, Alerts Allergen Type Severity Reaction Status Last Updated Sulfonylureas Allergy Unknown Active 09/04/08 Amoxicillin Allergy Unknown Active 09/04/08 Immunizations Name Given Type ZOSTAVAX 04/08/15 Administered Vital Signs Acute Vital Signs Vital Response Date/Time Height 6 ft 0 in Weight 143 lb Body Mass Index 19.4 kg/m^2 Ambulatory Vital Signs Vital Response Date/Time [...] Corpuscular Hemoglobin Concent 33 g/dl 32-36 02/28/2011 6:47 7:12am Red Cell Distribution-SD 43.2 fL 35.1-43.9 [...] 11:07am Glomerular Filtration Rate Calc 61 01/09/2015 9:01/09/2015 11: 07am At increased risk Risk factors [...] 04/08/2016 9:23am 04/08/2016 9: 44am Urine Specific [place] 1.015 1.005-1.035 04/08/2016 9:23am 2015 9:44am Urine [...] See Separate Report 04/08/2016 11:32am 2015 10:17am Procedures No known history of procedures. Encounters Encounter Location Arrival/Admit Date Discharge/Depart Date Attending Provider Office Visit [facility] 04/15/16 1:00pm Micah Chen Registered Practice [facility] 04/15/16 1:00pm Micah Chen Registered Clinic [facility] 04/15/16 12:26pm Micah Chen Departed Clinic [facility] 04/08/16 11:18am 04/08/16 11: 59pm Riya Gallegos Departed Clinic [facility] 04/08/16 9:20am 04/08/16 11: 59pm Riya Gallegos Office Visit [facility] 04/08/16 8:30am Riya Glalegos Departed Clinic [facility] 03/24/16 8:54am 03/24/16 11: 59pm Micah Chen PA Departed Clinic [facility] 03/24/16 8:34am 03/24/16 11: 59pm Micah Chen PA Office Visit [facility] 03/24/16 8:30am Micah Chen PA Departed Clinic [facility] 01/16/16 2:37pm 01/16/16 11: 59pm Micah Chen PA Departed Clinic [facility] 01/16/16 2:24pm 01/16/16 11: 59pm Micah Chen PA Office Visit [facility] 01/16/16 2:15pm Micah Chen PA Departed Clinic [facility] 01/09/15 9:18am 01/09/15 11: 59pm Micah Chen PA Office Visit [facility] 01/09/15 8:45am Micah Chen PA Office Visit [facility] 03/16/11 10:00am Micah Chen PA Discharged Inpatient (obs) [facility] 02/28/11 2:00am 31/07 11:50am Johnathon Dallas MD Departed Emergency Room [facility] 02/28/11 12:46am 2:00am Johnathon Dallas MD Registered Surgical Day Care [facility] 10/12/07 1:46pm Recent Diagnosis UTI (urinary tract infection) Contusion of rib on left side
--- OUTSIDE RECORDS SUMMARY | 2016-11-02 13:44 | XMS REPORT | Continuity of Care Document ---
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 Visit Date/Time Discharge Status Pt. Type Provider Facility Loc./Unit Complaint [id number] 03/11/2016 15:42:59 03/11/2016 23: 59:59 [facility] Outpatient Florencio Sung [id number] 03/04/2016 09:09:18 03/04/2016 23: 59:59 [facility] Outpatient Florencio Sung [id number] 12/04/2015 09:06:51 12/04/2015 23: 59:59 [facility] Outpatient Florencio Sung [id number] 06/11/2015 09:35:09 06/11/2015 23: 59:59 [facility] Outpatient Florencio Sung [id number] 06/07/2015 09:06:52 06/07/2015 23: 59:59 [facility] Outpatient Florencio Sung [id number] 12/10/2014 11:05:54 12/10/2014 23: 59:59 [facility] Outpatient Juan Carlos Sanabria [id number] 12/03/2014 09:18:16 12/03/2014 23: 59:59 [facility] Outpatient Juan Carlos Sanabria [id number] 06/11/2014 11:04:13 06/11/2014 23: 59:59 [facility] Outpatient Juan Carlos Sanabria [id number] 04/26/2014 08:49:57 04/26/2014 23: 59:59 [facility] Outpatient Juan Carlos Sanabria [id number] 04/18/2014 08:55:23 04/18/2014 23: 59:59 [facility] Outpatient Juan Carlos Sanabria [id number] 09/27/2013 11:50:20 09/27/2013 23: 59:59 [facility] Outpatient Juan Carlos Sanabria [id number] 09/08/2013 10:03:37 09/08/2013 23: 59:59 [facility] Outpatient Juan Carlos Sanabria [id number] 03/13/2013 09:21:59 03/13/2013 23: 59:59 [facility] Outpatient Juan Carlos Sanabria [id number] 03/06/2013 09:06:43 03/06/2013 23: 59:59 [facility] Outpatient Juan Carlos Sanabria
--- OUTSIDE RECORDS SUMMARY | 2016-11-02 13:44 | XMS REPORT | Continuity of Care Document ---
Author Author [facility] Organization [facility] Address Unknown Phone Unavailable Support Name Relationship Address Phone Rosy Riya ALL Caregiver [address] [place] [address] SOHAILNOEE Next Of Kin [address] [place] [address] Insurance Providers Payer Name Policy Number Subscriber Name Relationship s Medicare [id number] Primitivo Yip 18 Self / Same As Patient [employer] Employee [facility] [id number] Primitivo Yip 18 Self / Same As [...] 100 Mg 100 Mg Oral Daily @89901/09/15 Trimethoprim/Sulfamethoxazole 1 Each 1 Each Oral Twice A Day Past Home Medications Medication Directions Ordered Status Trimethoprim/Sulfamethoxazole 1 Each Tablet, 1 Each Oral Daily @899 Discontinued Cephalexin 500 Mg Capsule, 500 Mg Oral Three Times A Day 01/09/15 Discontinued Ciprofloxacin Hcl 500 Mg Tablet, 500 Mg Oral Twice A Day 01/16/16 Discontinued Ciprofloxacin Hcl 500 Mg Tablet, 500 Mg Oral Twice A Day 03/24/16 Discontinued Social History No social history. Hospital Discharge Instructions No hospital discharge instructions. Plan of Care Discharge Date 04/08/16 11:59pm Prescriptions See Medication Section Functional Status No functional status results. Allergies, Adverse Reactions, Alerts Allergen Type Severity Reaction Status Last Updated Sulfonylureas Allergy Unknown Active 09/04/08 Amoxicillin Allergy Unknown Active 09/04/08 Immunizations Name Given Type ZOSTAVAX 04/08/15 Administered Vital Signs Ambulatory Vital Signs Vital Response Date/Time Height 6 ft 04/08/2016 8:25am Weight 148 lbs 2 oz 04/08/2016 8:25am Temperature, Temporal 97.7 degrees F 04/08/2016 8:25am Blood Pressure, Sitting, Left Arm 124/70 mm Hg 04/08/2016 8:25am Pulse Rate 60 bpm 04/08/2016 8:25am Respiration Rate 20 bpm 04/08/2016 8:25am Body Surface Area 1.84 m2 04/08/2016 8:25am Body Mass Index 20.1 kg/m2 04/08/2016 8:25am Pulse Oximetry Pulse Oximetry 04/08/2016 8:25am Results Laboratory Results Test Name Result Units [...] Basophils # (Auto) 0.0 K/mm3 0-0.2 01/09/2015 9:2401/09/2015 11: 40am Random Glucose 79 mg/dL 70-110 01/09/2015 9:2401/09/2015 11:07am Blood Urea Nitrogen 11 mg/dL 7-18 01/09/2015 9:2401/09/2015 11:07am Creatinine 1.2 mg/dL 0.6-1.3 01/09/2015 9:24am 01/09/2015 11:07am BUN/Creatinine Ratio 9.2 L 12-30 01/09/2015 9:2401/09/2015 11:07am Sodium Level 130 mEq/L L 135-155 [...] 01/09/2015 11:07am Albumin 3.8 gm/dL 3.4-5.0 01/09/2015 9:2401/09/2015 11:07am Albumin/Globulin Ratio 1.0 01/09/2015 9:2401/09/2015 11:07am Total Bilirubin 0.47 mg/dL 0.2-1.0 01/09/2015 [...] 01/09/2015 11: 07am NOTE REFERENCE RANGE CHANGE 6/5/14 REFERENCE RANGE CHANGE DUE TO NEW REAGENT [...] 04/08/2016 9:23am 04/08/2016 9: 44am Urine Specific [place] 1.015 1.005-1.035 04/08/2016 9:23am 2015 9:44am Urine [...] at 12hrs NONE 04/08/2016 9:23am 12/2015 6:08am Procedures No known history of procedures. Encounters Encounter Location Arrival/Admit Date Discharge/Depart Date Attending Provider Departed Clinic [facility] 04/08/16 11:18am 04/08/16 11: 59pm Riya Gallegos Departed [facility] 04/08/16 9:20am 04/08/16 11: 59pm Riya Gallegos Office Visit [facility] 04/08/16 8:30am Riya Gallegos Registered Practice [facility] 04/08/16 8:30am Riya Gallegos Departed Clinic [facility] 03/24/16 8:54am 03/24/16 11: 59pm Micah Chen Office Visit [facility] 03/24/16 8:30am Micah Chen Departed Clinic [facility] 01/16/16 2:37pm 01/16/16 11: 59pm Micah Chen PA Departed [facility] 01/16/16 2:24pm 01/16/16 11: 59pm Micah Chen PA Office Visit [facility] 01/16/16 2:15pm Micah Chen Departed Clinic [facility] 01/09/15 9:18am 01/09/15 11: 59pm Micah Chen Office Visit [facility] 01/09/15 8:45am Micah Chen Office Visit [facility] 03/16/11 10:00am Micah Chen Discharged Inpatient (obs) [facility] 02/28/11 2:00am 31/07 11:50am Johnathon Dallas MD Departed Emergency Room [facility] 02/28/11 12:46am 2:00am Johnathon Dallas MD Registered Surgical Day Care [facility] 10/12/07 1:46pm
--- OUTSIDE RECORDS SUMMARY | 2016-11-02 13:45 | XMS REPORT | Continuity of Care Document ---
Author Author [facility] Organization [facility] Address Unknown Phone Unavailable Support Name Relationship Address Phone FLORENTINO ERICKSON DO Caregiver [address] [place] [address] JESUS MANUEL ARAUJO [place] [address] Insurance Providers Payer Name Policy Number Subscriber Name Relationship Wps Medicare [id number] Primitivo Yip 18 Self / Same As Patient [employer] [id number] Primitivo Yip 18 Self / Same As [...] Tbbp.12hr, 1200 Mg Oral Every 12 Hours 05/06/15 Discontinued Trimethoprim/Sulfamethoxazole 1 Each Tablet, 1 Each [...] discharge instructions. Plan of Care Discharge Date 05/27/16 11:59pm Prescriptions See Medication Section Functional Status [...] 7:41am BUN/Creatinine Ratio 7.8 L 12-30 02/28/2011 6:4702/28/2011 7:41am Sodium Level 136 mEq/L 135-155 [...] Result 1 Growth detected H NONE 01/16/2016 [facility] 2015 6:39am Urine Culture Result 3 Growth [...] 04/08/2016 9:23am 04/08/2016 9: 44am Urine Specific [place] 1.015 1.005-1.035 04/08/2016 9:23am 2015 9:44am Urine [...] 04/18/2016 12:30pm 04/18/2016 12: 58pm Urine Specific [place] 1.015 1.005-1.035 04/18/2016 12:30pm 2015 12:58pm Urine [...] 04/29/2016 12:02pm 04/29/2016 12: 17pm Urine Specific [place] 1.020 1.005-1.035 04/29/2016 12:02pm 2015 12:17pm Urine [...] NEGATIVE 05/12/2016 8:05/12/2016 9: 49am Urine Specific [place] 1.015 1.005-1.035 05/12/2016 8:2015 9:49am Urine Occult [...] 05/13/2016 4:30pm 05/13/2016 5: 34pm Urine Specific [place] 1.010 1.005-1.035 05/13/2016 4:30pm 2015 5:34pm Urine [...] 7:09am Eosinophils # (Auto) 0.2 0-0.4 05/17/2016 6:30am 05/17/2016 7:09am Basophils # (Auto) 0.0 K/mm3 0-0.2 05/17/2016 6:3005/17/2016 7:09am Random Glucose 86 mg/dL 70-110 05/17/2016 6:3005/17/2016 7:24am Blood Urea Nitrogen 11 mg/dL 7-18 05/17/2016 6:3005/17/2016 7:24am Creatinine 0.95 mg/dL # 0.550-1.3 05/17/2016 6:3005/17/2016 7:24am NOTE REFERENCE RANGE CHANGE 03/05/15 REFERENCE RANGE CHANGE DUE TO NEW REAGENT PREVIOUS RANGE: 0.6-1.3 mg/dL NEW RANGE: 0.550-1.3 mg/dL BUN/Creatinine Ratio 11.57 L 12-30 05/17/2016 6:3005/17/2016 7: 24am Sodium Level 132 mEq/L [...] 05/17/2016 7:24am Urine Color YELLOW STRAW 05/27/2016 2:1105/27/2016 3:16pm Urine Appearance TURBID CLEAR 05/27/2016 2:1105/27/2016 3:16pm Urine Glucose (UA) NEGATIVE mg/dL NEGATIVE 05/27/2016 2:112015 3:16pm Urine Bilirubin NEGATIVE NEGATIVE 05/27/2016 2:05/27/2016 3: 16pm Urine Ketones NEGATIVE mg/dL NEGATIVE 05/27/2016 2:1105/27/2016 3: 16pm Urine Specific [place] 1.010 1.005-1.035 05/27/2016 2:11pm 2015 3:16pm Urine Occult Blood 2+ MODERATE H NEGATIVE 05/27/2016 2:112015 3:16pm Urine pH 7.0 05/27/2016 2:1105/27/2016 3:16pm [...] Result 1 Growth detected H NONE 05/27/2016 2:112015 6:37am Urine Culture Result 3 Growth detected H NONE 05/27/2016 2:11pm 2015 6:37am Procedures No known history of procedures. Encounters Encounter Location Arrival/Admit Date Discharge/Depart Date Attending Provider Office Visit [facility] 05/28/16 10:00am FLORENTINO ERICKSON DO Departed Clinic [facility] 05/27/16 2:11pm 05/27/16 11: 59pm FLORENTINO ERICKSON DO Discharged Inpatient [facility] 05/16/16 1:25pm 05/18/16 2 :40pm FLORENTINO ERICKSON DO Discharged Inpatient [facility] 05/13/16 1:05pm 05/16/16 1 :25pm FLORENTINO ERICKSON DO Office Visit [facility] 05/13/16 10:45am Micah Chen PA Registered Practice [facility] 05/13/16 10:45am Micah Chen Departed Clinic [facility] 05/12/16 8:17am 05/12/16 11: 59pm Micah Chen PA Registered [facility] 05/07/16 7:29am Micah Chen PA Discharged Recurring [facility] 05/04/16 7:26pm 05/06/16 11:59pm Micah Chen PA Registered Clinic [facility] 04/29/16 11:41am Micah Chen PA Office Visit [facility] 04/21/16 2:00pm Micah Chen PA Discharged Inpatient (obs) [facility] 04/18/16 1:50pm 6:00pm Librado Perales DO Departed Emergency Room [facility] 04/18/16 10:58am 1:50pm Librado Perales DO Office Visit [facility] 04/15/16 1:00pm Micah Chen Departed Clinic [facility] 04/15/16 12:26pm 04/15/16 11: 59pm Micah Chen PA Departed Clinic [facility] 04/08/16 11:18am 04/08/16 11: 59pm Riya Gallegos Departed Clinic [facility] 04/08/16 9:20am 04/08/16 11: 59pm Riya Gallegos Office Visit [facility] 04/08/16 8:30am Riya Gallegos Departed Clinic [facility] 03/24/16 8:54am 03/24/16 11: 59pm Micah Chen PA Departed Clinic [facility] 03/24/16 8:34am 03/24/16 11: 59pm Micah Chen PA Office Visit [facility] 03/24/16 8:30am Micah Chen PA Departed Clinic [facility] 01/16/16 2:37pm 01/16/16 11: 59pm Micah Chen PA Departed Clinic [facility] 01/16/16 2:24pm 01/16/16 11: 59pm Micah Chen PA Office Visit [facility] 01/16/16 2:15pm Micah Chen PA Departed Clinic [facility] 01/09/15 9:18am 01/09/15 11: 59pm Micah Chen PA Office Visit [facility] 01/09/15 8:45am Micah Chen PA Office Visit [facility] 03/16/11 10:00am Micah Chen PA Discharged Inpatient (obs) [facility] 02/28/11 2:00am 31/07 11:50am Johnathon Dallas MD Departed Emergency Room [facility] 02/28/11 12:46am 2:00am Johnathon Dallas MD Registered Surgical Day Care [facility] 10/12/07 1:46pm
--- OUTSIDE RECORDS SUMMARY | 2016-11-02 13:45 | XMS REPORT | Continuity of Care Document ---
Author Author [facility] Organization [facility] Address Unknown Phone Unavailable Support Name Relationship Address Phone Micah Chen Caregiver [address] [place] [address] S[place]EE Next Of Kin [address] [place], [place] [address] Insurance Providers Payer Name Policy Number Subscriber Name Relationship s Medicare [id number] Primitivo Yip 18 Self / Same As Patient [employer] [facility] [id number] Primitivo Yip 18 Self / Same As [...] Inhalation Every 4-6 Hours As Needed 01/09/15 Trimethoprim/Sulfamethoxazole 1 Each 1 Each Oral Daily @899 Albuterol Sulfate 2.5 Mg/3 Ml 2.5 Mg Nebulizer Three Times A Day 02/18 Budesonide 0.5 Mg/2 Ml 0.5 Mg Nebulizer Twice A Day 01/09/15 Niacin 500 Mg 500 Mg Oral 2TABS Daily 01/09/15 Metoprolol Tartrate 100 Mg 100 Mg Oral Daily @89901/09/15 Ciprofloxacin Hcl 500 Mg 500 Mg Oral Twice A Day 28 03/24/16 Past Home Medications Medication Directions Ordered Status Cephalexin 500 Mg Capsule, 500 Mg Oral Three Times A Day 01/09/15 Discontinued Ciprofloxacin Hcl 500 Mg Tablet, 500 Mg Oral Twice A Day 01/16/16 Discontinued Social History No social history. Hospital Discharge Instructions No hospital discharge instructions. Plan of Care Discharge Date 03/24/16 11:59pm Prescriptions See Medication Section Functional Status No functional status results. Allergies, Adverse Reactions, Alerts Allergen Type Severity Reaction Status Last Updated Sulfonylureas Allergy Unknown Active 09/04/08 Amoxicillin Allergy Unknown Active 09/04/08 Immunizations No immunization records. Vital Signs Ambulatory Vital Signs Vital Response Date/Time Height 6 ft 03/24/2016 8:25am Weight 141 lbs 6 oz 03/24/2016 8:25am Temperature, Temporal 97.9 degrees F 03/24/2016 8:25am Blood Pressure, Sitting, Left Arm 124/70 mm Hg 03/24/2016 8:25am Pulse Rate 94 bpm 03/24/2016 8:25am Respiration Rate 16 bpm 03/24/2016 8:25am Body Surface Area 1.79 m2 03/24/2016 8:25am Body Mass Index 19.2 kg/m2 03/24/2016 8:25am Pulse Oximetry Pulse Oximetry 03/24/2016 8:25am Results Laboratory Results Test Name Result [...] 6:47am 02/28/2011 7:44am Basophilic Stippling 1+ 02/28/2011 6:4702/28/2011 7:44am [...] 11:40am Hematocrit 38.9 % L 40-54 01/09/2015 9:24am 01/09/2015 11:40am Mean Corpuscular Volume 99.7 fl H [...] Basophils # (Auto) 0.0 K/mm3 0-0.2 01/09/2015 9:24am 01/09/2015 11: 40am Random Glucose 79 mg/dL 70-110 01/09/2015 9:24am 01/09/2015 11:07am Blood Urea Nitrogen 11 mg/dL 7-18 01/09/2015 9:24am 01/09/2015 11:07am Creatinine 1.2 mg/dL 0.6-1.3 01/09/2015 9:24am [...] <15 Total Protein 7.6 gm/dL 6.4-8.2 01/09/2015 9:2401/09/2015 11:07am Albumin 3.8 gm/dL 3.4-5.0 01/09/2015 9:24am 01/09/2015 11:07am Albumin/Globulin Ratio 1.0 01/09/2015 9:2401/09/2015 11:07am Total Bilirubin 0.47 mg/dL 0.2-1.0 01/09/2015 9:24am 01/09/2015 11: 07am Aspartate Amino Transf (AST/SGOT) 23 U/L 15-37 01/09/2015 9:242014 11:07am Alanine Aminotransferase (ALT/SGPT) 21 U/L 12-78 [...] detected H NONE 03/24/2016 8:54am 2015 7:05am Procedures No known history of procedures. Encounters Encounter Location Arrival/Admit Date Discharge/Depart Date Attending Provider Departed Clinic [facility] 03/24/16 8:54am 03/24/16 11: 59pm Micah Chen PA Office Visit [email or web address] 03/24/16 8:30am Micah Chen Registered Practice [facility] 03/24/16 8:30am Micah Chen Departed Clinic [facility] 01/16/16 2:37pm 01/16/16 11: 59pm Micah Chen Departed Clinic [facility] 01/16/16 2:24pm 01/16/16 11: 59pm Micah Chen PA Office Visit [facility] [[email or web address]] 01/16/16 2:15pm Micah Chen Departed Clinic [facility] 01/09/15 9:18am 01/09/15 11: 59pm Micah Chen PA Office Visit [facility] [[email or web address]] 01/09/15 8:45am Micah Chen PA Office Visit [facility] [[email or web address]] 03/16/11 10:00am Micah Chen PA Discharged Inpatient (obs) [facility] 02/28/11 2:00am 31/07 11:50am Johnathon Dallas MD Departed Emergency Room [facility] 02/28/11 12:46am 2:00am Johnathon Dallas MD Registered Surgical Day Care [facility] 10/12/07 1:46pm
--- OUTSIDE RECORDS SUMMARY | 2016-11-02 13:45 | XMS REPORT | Continuity of Care Document ---
Author Author [facility] Organization [facility] Address Unknown Phone Unavailable Care Team Providers Care Waistline Joiner Lockstitch Name Role Phone FLORENTINO ERICKSON DO Primary Care Physician [phone] Insurance Providers Payer Name Policy Number Subscriber Name Relationship s Medicare [id number] Primitivo Yip 18 Self / Same As Patient [facility] [id number] Primitivo Yip 18 Self / Same As Patient Chief Complaint and Reason for Visit Reason for Visit Falling Pain Weakness Status post colectomy Problems Active Problems Medical Problem Onset Date Status Bladder stone Unknown Acute C. difficile colitis Unknown Acute C. 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 Discharge instructions are currently unavailable. Plan of Care Instructions/Education Provided Colostomy Creation (GEN) Tube Feeding (GEN) Prescriptions Functional Status No functional status results. [...] Date/Time Height 6 ft 0 in Weight 150 lb Body Mass Index 20.5 kg/m^2 Ambulatory Vital Signs Vital Response Date/Time [...] Corpuscular Volume 96.7 fl H 80-94 02/28/2011 6:4702/28/2011 7: 12am Mean Corpuscular Hemoglobin 32 pg [...] 04/08/2016 9:23am 04/08/2016 9: 44am Urine Specific [place] 1.015 1.005-1.035 04/08/2016 9:23am 2015 9:44am Urine [...] 04/18/2016 12:30pm 04/18/2016 12: 58pm Urine Specific [place] 1.015 1.005-1.035 04/18/2016 12:30pm 2015 12:58pm Urine [...] 04/29/2016 12:02pm 04/29/2016 12: 17pm Urine Specific [place] 1.020 1.005-1.035 04/29/2016 12:02pm 2015 12:17pm Urine [...] NEGATIVE 05/12/2016 8:05/12/2016 9: 49am Urine Specific [place] 1.015 1.005-1.035 05/12/2016 8:2015 9:49am Urine Occult Blood 2+ MODERATE H NEGATIVE 05/12/2016 8:2015 9:49am Urine pH 7.0 05/12/2016 8:2105/12/2016 9:49am Urine Protein 1+ 30 mg/dL mg/dL H NEGATIVE 05/12/2016 8:05/12/2016 9:49am Urine Urobilinogen 0.2 E.U./dL NORMAL 05/12/2016 8:21am 05/12/2016 9: 49am Urine Nitrate POSITIVE H NEGATIVE 05/12/2016 8:05/12/2016 9:49am URINE HAS BEEN SENT FOR CULTURE Urine Leukocyte Esterase 2+ MODERATE H NEGATIVE 05/12/2016 8:2102/2016 9:49am URINE HAS BEEN SENT FOR CULTURE Urine RBC 30-50 /hpf H NONE 05/12/2016 8:2105/12/2016 9:49am Urine WBC 30-50 /hpf H NONE 05/12/2016 8:2105/12/2016 9:49am Urine Squamous Epithelial Cells OCCASSIONAL /lpf OCCASSIONAL 05/12/2016 8:2105/12/2016 9:49am Urine Bacteria MODERATE /hpf H NONE 05/12/2016 8:2105/12/2016 9:49am Urine Hyaline Casts 0-1 /lpf H [...] 7:07am Monocytes # (Auto) 0.8 0.1-1.0 05/16/2016 6:4505/16/2016 7:07am Eosinophils # (Auto) 0.2 0-0.4 05/16/2016 6:4505/16/2016 7:07am Basophils # (Auto) 0.0 K/mm3 0-0.2 05/16/2016 6:4505/16/2016 7:07am Urine Color YELLOW STRAW 05/13/2016 4:30pm 05/13/2016 5:34pm Urine Appearance SL CLOUDY CLEAR 05/13/2016 4:30pm 05/13/2016 5:34pm Urine Glucose (UA) NEGATIVE mg/dL NEGATIVE 05/13/2016 4:30pm 2015 5:34pm Urine Bilirubin NEGATIVE NEGATIVE 05/13/2016 4:30pm 05/13/2016 5: 34pm Urine Ketones NEGATIVE mg/dL NEGATIVE 05/13/2016 4:30pm 05/13/2016 5: 34pm Urine Specific [place] 1.010 1.005-1.035 05/13/2016 4:30pm 2015 5:34pm Urine [...] 6:45am 05/16/2016 7: 17am Anion Gap 10.0 10-05/16/2016 6:45am 05/16/2016 7:17am Calcium Level 8.4 mg/dL [...] JASON Clostridium difficile [id number] NEGATIVE NEGATIVE 05/16/2016 9:0105/16/2016 11:04am Giardia Antigen Negative NEGATIVE 05/16/2016 9:01am 05/16/2016 10: 31am Stool Cryptosporidium Antigen Negative NEGATIVE 05/16/2016 9:01am 06/2016 10:31am Campylobacter Antigen NEGATIVE NONE DETECT 05/16/2016 9:012015 10:35am Absence of Campylobacter antigen or levels below the limit of detection for the assay. Stool for White Cells No WBC's Observed None 05/16/2016 9:012015 10:31am Globulin 3.1 gm/dL 2.0-4.5 05/16/2016 6:45am [...] Blood Urea Nitrogen 11 mg/dL 7-18 05/17/2016 6:05/17/2016 7:24am Creatinine 0.95 mg/dL # 0.550-1.3 05/17/2016 6:05/17/2016 7:24am NOTE REFERENCE RANGE CHANGE 03/05/15 REFERENCE RANGE CHANGE DUE TO NEW REAGENT PREVIOUS RANGE: 0.6-1.3 mg/dL NEW RANGE: 0.550-1.3 mg/dL BUN/Creatinine Ratio 11.57 L 12-30 05/17/2016 6:30am 05/17/2016 7: 24am Sodium Level 132 mEq/L L 135-155 05/17/2016 6:30am 05/17/2016 7:24am Potassium Level 3.8 mEq/L 3.5-5.1 05/17/2016 6:30am 05/17/2016 7:24am Chloride Level 99 mEq/L 98-107 05/17/2016 6:30am 05/17/2016 7:24am Carbon Dioxide Level 30 mEq/L 21-32 05/17/2016 6:30am 05/17/2016 7: 24am Anion Gap 6.8 L 10-05/17/2016 6:30am 05/17/2016 7:24am Calcium Level 8.7 mg/dL [...] 2:1105/27/2016 3:16pm Urine Appearance TURBID CLEAR 05/27/2016 2:05/27/2016 3:16pm Urine Glucose (UA) NEGATIVE mg/dL NEGATIVE 05/27/2016 2:2015 3:16pm Urine Bilirubin NEGATIVE NEGATIVE 05/27/2016 2:05/27/2016 3: 16pm Urine Ketones NEGATIVE mg/dL NEGATIVE 05/27/2016 2:1105/27/2016 3: 16pm Urine Specific [place] 1.010 1.005-1.035 05/27/2016 2:112015 3:16pm Urine Occult Blood 2+ MODERATE H NEGATIVE 05/27/2016 2:112015 3:16pm Urine pH 7.0 05/27/2016 2:11pm 05/27/2016 3:16pm Urine Protein 1+ 30 mg/dL mg/dL H NEGATIVE 05/27/2016 2:11pm 05/27/2016 3:16pm Urine Urobilinogen 0.2 E.U./dL NORMAL 05/27/2016 2:11pm 05/27/2016 3: 16pm Urine Nitrate POSITIVE H NEGATIVE 05/27/2016 2:11pm 05/27/2016 3:16pm URINE HAS BEEN SENT FOR CULTURE Urine Leukocyte Esterase 3+ LARGE H NEGATIVE 05/27/2016 2:11pm 2015 3:16pm URINE HAS BEEN SENT FOR CULTURE Urine RBC 6-10 /hpf H NONE 05/27/2016 2:11pm 05/27/2016 3:16pm Urine WBC 50+ /hpf H NONE 05/27/2016 2:11pm 05/27/2016 3:16pm Urine Squamous Epithelial Cells OCCASSIONAL /lpf [...] NEW RANGE: 0.550-1.3 mg/dL BUN/Creatinine Ratio 12.96 09-0406/12/2016 1:53pm 06/12/2016 3:17pm Sodium Level 133 mEq/L [...] White Blood Count 8.02 K/mm3 4.5-10.5 06/17/2016 6:2006/17/2016 6: 32am Red Blood Count 3.31 M/mm3 L 4.60-6.00 06/17/2016 6:2006/17/2016 6: 32am Hemoglobin 11.0 gm/dl L 14.0-18.0 06/17/2016 6:2006/17/2016 6:32am Hematocrit 32.9 % L 40-54 06/17/2016 6:2006/17/2016 6:32am Mean Corpuscular Volume 99.4 fl H 80-94 06/17/2016 6:2006/17/2016 6: 32am Mean Corpuscular Hemoglobin 33 pg H 26-32 06/17/2016 6:06/17/2016 6 :32am Mean Corpuscular Hemoglobin Concent 33 g/dl 32-36 06/17/2016 6:08/2016 6:32am Red Cell Distribution-SD 48.9 fL H 35.1-43.9 06/17/2016 6:2015 6:32am RDW Coefficient of Variation 14.1 % 11.5-14.5 06/17/2016 6:2015 6:32am Platelet Count 132 K/mm3 L 150-450 06/17/2016 6:06/17/2016 6:32am Mean Platelet Volume 9.0 fl L 9.4-12.4 06/17/2016 6:06/17/2016 6: 32am Neutrophils (%) (Auto) 66.6 % 50-70 06/17/2016 6:06/17/2016 6: 32am Lymphocytes (%) (Auto) 20.2 % 18-42 06/17/2016 6:2006/17/2016 6: 32am Monocytes (%) (Auto) 8.9 % 2-11 06/17/2016 6:06/17/2016 6:32am Eosinophils (%) (Auto) 3.9 % H 1-3 06/17/2016 6:2006/17/2016 6:32am Basophils (%) (Auto) 0.4 % 0-2 [...] 06/15/2016 1:40pm 06/15/2016 2: 12pm Urine Specific [place] 1.015 1.005-1.035 06/15/2016 1:40pm 2015 2:12pm Urine [...] 06/17/2016 7:22am Creatinine 0.85 mg/dL 0.550-1.3 06/17/2016 6:2006/17/2016 7:22am NOTE REFERENCE RANGE CHANGE 03/05/15 REFERENCE RANGE CHANGE DUE TO NEW REAGENT PREVIOUS RANGE: 0.6-1.3 mg/dL NEW RANGE: 0.550-1.3 mg/dL BUN/Creatinine Ratio 9.41 L 09-0406/17/2016 6:20am 06/17/2016 7:22am Sodium Level 139 mEq/L 135-155 06/17/2016 6:20am 06/17/2016 7:22am Potassium Level 3.8 mEq/L 3.5-5.1 06/17/2016 6:2006/17/2016 7:22am Chloride Level 104 mEq/L 98-107 06/17/2016 6:20am 06/17/2016 7:22am Carbon Dioxide Level 27 mEq/L 21-32 06/17/2016 6:20am 06/17/2016 7: 22am Anion Gap 11.8 1006/17/2016 6:20am 06/17/2016 7:22am Calcium Level 8.5 mg/dL [...] Corpuscular Hemoglobin Concent 33 g/dl 32-36 06/22/2016 9:25am 9:44am Red Cell Distribution-SD 49.9 fL H 35.1-43.9 06/22/2016 9:25am 2015 9:44am RDW Coefficient of Variation 14.0 % 11.5-14.5 06/22/2016 9:25am 2015 9:44am Platelet Count 182 K/mm3 150-450 06/22/2016 9:25am 06/22/2016 9:44am Mean Platelet Volume 9.3 fl L 9.4-12.4 06/22/2016 9:25am 06/22/2016 9: 44am Neutrophils (%) (Auto) 92.8 % H 50-70 06/22/2016 9:25am 06/22/2016 9: 44am Lymphocytes (%) (Auto) 1.6 % L 18-42 06/22/2016 9:25am 06/22/2016 9: 44am Monocytes (%) (Auto) 5.4 % 2-11 06/22/2016 9:25am 06/22/2016 9:44am Eosinophils (%) (Auto) 0.1 % L 1-3 06/22/2016 9:25am 06/22/2016 9:44am Basophils (%) (Auto) 0.1 % [...] 10:01am Blood Urea Nitrogen 20 mg/dL H 03-2306/22/2016 9:25am 06/22/2016 10: 01am Creatinine 1.09 mg/dL 0.550-1.3 06/22/2016 9:25am 06/22/2016 10:01am NOTE REFERENCE RANGE CHANGE 03/05/15 REFERENCE RANGE CHANGE DUE TO NEW REAGENT PREVIOUS RANGE: 0.6-1.3 mg/dL NEW RANGE: 0.550-1.3 mg/dL BUN/Creatinine Ratio 18.34 09-0406/22/2016 9:25am 06/22/2016 10: 01am Sodium Level 132 [...] 06/22/2016 9:25am 06/22/2016 10:01am White Blood Count 12.25 K/mm3 H 4.5-10.5 07/19/2016 8:0507/19/2016 8: 11am Red Blood Count 3.04 M/mm3 L 4.60-6.00 07/19/2016 8:0507/19/2016 8: 11am Hemoglobin 9.9 gm/dl # L 14.0-18.0 07/19/2016 8:0507/19/2016 8:11am Hematocrit 30.5 % L 40-54 07/19/2016 8:0507/19/2016 8:11am Mean Corpuscular Volume 100.3 fl H 80-94 07/19/2016 8:0507/19/2016 8: 11am Mean Corpuscular Hemoglobin 33 pg H 26-32 07/19/2016 8:0507/19/2016 8 :11am Mean Corpuscular Hemoglobin Concent 33 g/dl 32-36 07/19/2016 8:05 8:11am Red Cell Distribution-SD 59.9 fL H 35.1-43.9 07/19/2016 8:052015 8:11am RDW Coefficient of Variation 17.1 % H 11.5-14.5 07/19/2016 8:052015 8:11am Platelet Count 358 K/mm3 150-450 07/19/2016 8:07/19/2016 8:11am Mean Platelet Volume 9.3 fl L 9.4-12.4 07/19/2016 8:0507/19/2016 8: 11am Neutrophils (%) (Auto) 88.9 % H 50-70 07/19/2016 8:07/19/2016 8: 11am Lymphocytes (%) (Auto) 6.2 % L 18-42 07/19/2016 8:0507/19/2016 8: 11am Monocytes (%) (Auto) 4.8 % 2-11 07/19/2016 8:07/19/2016 8:11am Eosinophils (%) (Auto) 0.0 % L 1-3 07/19/2016 8:07/19/2016 8:11am Basophils (%) (Auto) 0.1 % 0-2 07/19/2016 8:07/19/2016 8:11am Neutrophils # (Auto) 10.9 H 2-8 07/19/2016 8:07/19/2016 8:11am Lymphocytes # (Auto) 0.8 L 1-5 07/19/2016 8:07/19/2016 8:11am Monocytes # (Auto) 0.6 0.1-1.0 07/19/2016 8:07/19/2016 8:11am Eosinophils # (Auto) 0.0 0-0.4 07/19/2016 8:07/19/2016 8:11am Basophils # (Auto) 0.0 K/mm3 0-0.2 07/19/2016 8:07/19/2016 8:11am Platelet Estimate NORMAL NORMAL 07/19/2016 8:07/19/2016 9:17am Basophilic Stippling 2+ 07/15/2016 9:07/15/2016 9:41am Anisocytosis 1+ 07/19/2016 8:0507/19/2016 9:17am Macrocytosis 1+ 07/19/2016 8:07/19/2016 9:17am Urine Color YELLOW STRAW 07/19/2016 3:10pm 07/19/2016 3:45pm Urine Appearance SL CLOUDY CLEAR 07/19/2016 3:10pm 07/19/2016 3:45pm Urine Glucose (UA) NEGATIVE mg/dL NEGATIVE 07/19/2016 3:10pm 2015 3:45pm Urine Bilirubin NEGATIVE NEGATIVE 07/19/2016 3:10pm 07/19/2016 3: 45pm Urine Ketones NEGATIVE mg/dL NEGATIVE 07/19/2016 3:10pm 07/19/2016 3: 45pm Urine Specific [place] 1.015 1.005-1.035 07/19/2016 3:10pm 2015 3:45pm Urine Occult Blood TRACE NEGATIVE 07/19/2016 3:10pm 07/19/2016 3: 45pm Urine pH 8.0 07/19/2016 3:10pm 07/19/2016 3:45pm Urine Protein NEGATIVE mg/dL NEGATIVE 07/19/2016 3:10pm 07/19/2016 3: 45pm Urine Urobilinogen 0.2 E.U./dL NORMAL 07/19/2016 3:10pm 07/19/2016 3: 45pm Urine Nitrate NEGATIVE NEGATIVE 07/19/2016 3:10pm 07/19/2016 3:45pm Urine Leukocyte Esterase 2+ MODERATE H NEGATIVE 07/19/2016 3:10 3:45pm URINE HAS BEEN SENT FOR CULTURE Urine RBC 0-1 /hpf H NONE 07/16/2016 9:40am 07/16/2016 10:22am Urine WBC 50+ /hpf H NONE 07/19/2016 3:1007/19/2016 3:45pm Urine Squamous Epithelial Cells NONE /lpf OCCASSIONAL 07/19/2016 3:10pm 07/19/2016 3:45pm Urine Bacteria MODERATE /hpf H NONE 07/19/2016 3:10pm 07/19/2016 3:45pm Urine Hyaline Casts 3-5 /lpf H NONE 07/16/2016 9:40am 07/16/2016 10: 22am Urine Amorphous Sediment MODERATE /hpf H NONE 07/16/2016 9:40am 2015 10:22am Urine Amorphous Sediment BUD YEAST W/HYPHAE H NONE 07/19/2016 3:10pm 07/19/2016 3:45pm Urine Yeast MANY /hpf H NONE 07/19/2016 3:10pm 07/19/2016 3:45pm Random Glucose 71 mg/dL 70-110 07/18/2016 6:30am 07/18/2016 7:08am Blood Urea Nitrogen 14 mg/dL 7-18 07/18/2016 6:30am 07/18/2016 7:08am Creatinine 0.64 mg/dL 0.550-1.3 07/18/2016 6:30am 07/18/2016 7:08am NOTE REFERENCE RANGE CHANGE 03/05/15 REFERENCE RANGE CHANGE DUE TO NEW REAGENT PREVIOUS RANGE: 0.6-1.3 mg/dL NEW RANGE: 0.550-1.3 mg/dL BUN/Creatinine Ratio 21.87 12-07/18/2016 6:30am 07/18/2016 7:08am Sodium Level 138 mEq/L 135-155 07/18/2016 6:30am 07/18/2016 7:08am Potassium Level 4.5 mEq/L 3.5-5.1 07/18/2016 6:30am 07/18/2016 7:08am Chloride Level 102 mEq/L 98-107 07/18/2016 6:30am 07/18/2016 7:08am Carbon Dioxide Level 34 mEq/L H 21-32 07/18/2016 6:30am 07/18/2016 7: 08am Anion Gap 6.5 L 10-20 07/18/2016 6:30am 07/18/2016 7:08am Calcium Level 8.0 mg/dL L 8.2-10.0 07/18/2016 6:30am 07/18/2016 7:08am Glomerular Filtration Rate Calc 125 07/18/2016 6:30am 07/18/2016 7: 08am At increased risk Risk factors for CKD are present but w/o >90 markers of kidney damage 1 Kidney damage w/ normal or >90 increased GFR 2 Kidney damage w/ mild reduc- 60-89 tion of GFR 3 Moderate reduction of GFR 30-59 4 Severe reduction of GFR 15-29 5 Kidney Failure <15 Total Protein 5.2 gm/dL L 6.4-8.2 07/18/2016 6:30am 07/18/2016 7:08am Albumin 1.4 gm/dL L 3.4-5.0 07/18/2016 6:30am 07/18/2016 7:08am Albumin/Globulin Ratio 0.4 07/18/2016 6:30am 07/18/2016 7:08am Total Bilirubin 0.46 mg/dL 0.2-1.0 07/18/2016 6:30am 07/18/2016 7:08am Aspartate Amino Transf (AST/SGOT) 27 U/L 15-37 07/18/2016 6:30am 2015 7:08am Alanine Aminotransferase (ALT/SGPT) 27 U/L 12-78 07/18/2016 6:30am 08/2016 7:08am Alkaline Phosphatase 256.0 U/L H 46-116 07/18/2016 6:30am 07/18/2016 7: 08am Urine Culture Result 1 Growth detected H NONE 07/16/2016 9:40am 2015 6:22am Gram Stain Result 1 Rare gram pos rods /hpf 07/19/2016 10:40am 2015 1:13pm RARE GRAM NEGATIVE ELKE Gram Stain Result 2 NO WBC'S OBSERVED /hpf 07/19/2016 10:40am 2015 1:13pm Urine Culture Result 3 Growth detected H NONE 07/16/2016 9:40am 2015 6:22am Globulin 3.8 gm/dL 2.0-4.5 07/18/2016 6:30am 07/18/2016 7:08am Urine Culture (LAB) See Separate Report 07/16/2016 9:40am 2015 9:21am Aerobic Culture (LAB) See Separate Report 07/19/2016 10:40am 2015 11:07am Procedures No known history of procedures. Encounters Encounter Location Arrival/Admit Date Discharge/Depart Date Attending Provider Admitted Inpatient [facility] 07/14/16 2:20pm FLORENTINO ERICKSON DO Departed Emergency Room [facility] 06/22/16 9:15am 12:25pm Riya Gallegos Departed Emergency Room [facility] 06/20/16 2:49pm 4:22pm Johnathon Dallas MD Discharged Inpatient [facility] 06/14/16 9:50am 06/17/16 12:55pm FLORENTINO ERICKSON DO Discharged Recurring [facility] 06/12/16 1:45pm 07/06/16 11:59pm FLORENTINO ERICKSON DO Office Visit [facility] 06/12/16 1:00pm FLORENTINO ERICKSON DO Registered Practice [facility] 06/12/16 1:00pm FLORENTINO ERICKSON DO Registered Clinic [facility] 05/28/16 10:52am FLORENTINO ERICKSON DO Office Visit [facility] 05/28/16 10:00am FLORENTINO ERICKSON DO Departed Clinic [facility] 05/27/16 2:11pm 05/27/16 11: 59pm GEORGINA, FLORENTINO M DO Discharged Inpatient [facility] 05/16/16 1:25pm 05/18/16 2 :40pm FLORENTINO ERICKSON DO Discharged Inpatient [facility] 05/13/16 1:05pm 05/16/16 1 :25pm FLORENTINO ERICKSON DO Office Visit [facility] 05/13/16 10:45am Micah Chen PA Departed Clinic [facility] 05/12/16 8:17am 05/12/16 11: 59pm Micah Chen PA Discharged Recurring [facility] 05/07/16 7:29am 06/05/16 11:59pm Micah Chen PA Discharged Recurring [facility] 05/04/16 7:26pm 05/06/16 11:59pm Micah Chen PA Departed Clinic [facility] 04/29/16 11:41am 04/29/16 11: 59pm Micah Chen PA Office Visit [facility] 04/21/16 2:00pm Micah Chen PA Discharged Inpatient (obs) [facility] 04/18/16 1:50pm 6:00pm Librado Perales DO Departed Emergency Room [facility] 04/18/16 10:58am 1:50pm Librado Perales DO Office Visit [facility] 04/15/16 1:00pm Micah Chen Departed Clinic [facility] 04/15/16 12:26pm 04/15/16 11: 59pm Micah Chen PA Departed Clinic [facility] 04/08/16 11:18am 04/08/16 11: 59pm Riya Gallegos Departed [facility] 04/08/16 9:20am 04/08/16 11: 59pm Riya Gallegos Office Visit [facility] 04/08/16 8:30am Riya Gallegos Departed Clinic [facility] 03/24/16 8:54am 03/24/16 11: 59pm Micah Chen PA Departed Clinic [facility] 03/24/16 8:34am 03/24/16 11: 59pm Micah Chen PA Office Visit [facility] 03/24/16 8:30am Micah Chen PA Departed Clinic [facility] 01/16/16 2:37pm 01/16/16 11: 59pm Micah Chen Departed Clinic [facility] 01/16/16 2:24pm 01/16/16 11: 59pm Micah Chen PA Office Visit [facility] 01/16/16 2:15pm Micah Chen Departed Clinic [facility] 01/09/15 9:18am 01/09/15 11: 59pm Micah Chen PA Office Visit [facility] 01/09/15 8:45am Micah Chen PA Office Visit [facility] 03/16/11 10:00am Micah Chen PA Discharged Inpatient (obs) [facility] 02/28/11 2:00am 31/07 11:50am Johnathon Dallas MD Departed Emergency Room [facility] 02/28/11 12:46am 2:00am Johnathon Dallas MD Registered Surgical Day Care [facility] 10/12/07 1:46pm Recent Diagnosis Falling Pain Weakness
--- OUTSIDE RECORDS SUMMARY | 2016-11-02 13:45 | XMS REPORT | Referral Summary ---
Author Author [facility] Organization [facility] Address Unknown Phone Unavailable Care Team Providers Care Crepe Machine Operator Name Role Phone Allan James Primary Care Physician [phone] Encounter VC Date(s): 03/07/15 - 03/07/15 [facility] [address] [place] [address] [facility] Discharge Diagnosis: Hypothyroid Discharge Disposition: [...] 90 tabs, 9 Refill(s) , KALIE, eRx: [facility] #[id number], TAKE ONE TABLET BY MOUTH EVERY MORNING [...] hormone). This hormone tells the thyroid to return agent airport more hormone. SYMPTOMS Lethargy (feeling as though [...] 11/14/2012 Document Reviewed: ExitCare Patient Information 2014 [employer]. No follow up information was provided.
--- OUTSIDE RECORDS SUMMARY | 2016-11-02 13:48 | XMS REPORT | Referral Summary ---
Author Author [facility] Organization [facility] Address Unknown Phone Unavailable Care Team Providers Care Loan Review Officer Name Role Phone Allan James Primary Care Physician [phone] Encounter VC Date(s): 03/07/15 - 03/07/15 [facility] [address] [place] [address] [facility] Discharge Diagnosis: Hypothyroid Discharge Disposition: 01-Home or [...] 90 tabs, 9 Refill(s) , KALIE, eRx: [facility] #[id number], TAKE ONE TABLET BY MOUTH EVERY MORNING [...] hormone). This hormone tells the thyroid to buffing turner and counter more hormone. SYMPTOMS Lethargy (feeling as though [...] 11/14/2012 Document Reviewed: ExitCare Patient Information 2014 [employer]. No follow up information was provided.
--- OUTSIDE RECORDS SUMMARY | 2016-11-02 13:48 | XMS REPORT | Referral Summary ---
Author Author [facility] Organization [facility] Address Unknown Phone Unavailable Care Team Providers Care Road Maker Name Role Phone Allan James Primary Care Physician [phone] Encounter VC Date(s): 03/07/15 - 03/07/15 [facility] [address] [place] [address] [facility] Discharge Diagnosis: Hypothyroid Discharge Disposition: [...] 90 tabs, 9 Refill(s) , KALIE, eRx: [facility] #[id number], TAKE ONE TABLET BY MOUTH EVERY MORNING [...] hormone). This hormone tells the thyroid to turning and beading machine operator more hormone. SYMPTOMS Lethargy (feeling as though [...] 11/14/2012 Document Reviewed: ExitCare Patient Information 2014 [employer]. No follow up information was provided.
--- OUTSIDE RECORDS SUMMARY | 2016-11-02 13:49 | XMS REPORT | Continuity of Care Document ---
Author Author [facility] Organization [facility] Address Unknown Phone Unavailable Support Name Relationship Address Phone GEORGINA FLORENTINO Lazcano DO Caregiver [address] [place] [address] JESUS MANUEL [place]RA[place] [address] Insurance Providers Payer Name Policy Number Subscriber Name Relationship s Medicare [id number] Primitivo Yip 18 Self / Same As Patient [employer] Employee [facility] [id number] Primitivo Yip 18 Self / Same As [...] COPD (chronic obstructive pulmonary disease) Unknown Acute [place]-vesical fistula Unknown Acute Colovesical fistula Unknown Acute [...] Discharge Instructions Patient Visit Information TRANSFER ORDER Fdc Admission: Admit to Other facility:: [facility] Discharge Diagnosis (FREE TEXT): weakness, anemia, prolonged hospitalization Admit to Provider:: Dr. Erickson Resuscitation Status: Do Not Resuscitate Admit to:: Other Level of Care required: Skilled (SNF) TRANSFER CHECKLIST Was Care Assessment Completed?: Yes Were personal belongings sent?: Yes Name of person report called to: RENEE TLOLIVER @ [address] [employer] Healthcare Decision Maker: Other VITAL [...] Orientation: Person, Place, Time SPEECH Preferred Language: Mohawk Flight Purser Required: No Ability to Follow Directions: Fair [...] all valuables on discharge: Yes DISCHARGE ORDERS DE Diet Orders: DE Diet Orders: Regular Skilled Care Certification: Skilled Care Certification: Y DE Vitals: Vital Signs: Weekly DE Weight Bearing: Weight bearing status: Full WEIGHT MONITORING: Weight Monitoring: Weekly Take Wt. Log to visit Free of communicable diseases: Is resident is free of communicable disease? Y or N: Y Prognosis: Prognosis: Poor Evaluation and Treatment: Evaluation and Treatment: PT OT WOUND CARE / OTHER ORDERS: Other Orders:: TRANSFER TO [facility] WHEN BED IS AVAILABLE Restrictions: NONE Wound Care / Treatment: SEE MAR FOR WOUND CARE Oxygen: Oxygen therapy: Y TITRATE TO KEEP SAO2 >/=90% (CURRENTLY USING 2L, NOT TO EXCEED 3L) Fdc Standing Orders: Participate in facility activities of choice: Y May leave facility w/family-friends with PRN meds: Y May keep personal care items at bedside: Y Vaccines per facility protocol: Y Follow fcility skin care protocol: Y TB Testin step Mantoux, if needed Fdc Admission: Admit to Other facility:: [facility] Discharge Diagnosis (FREE TEXT): weakness, anemia, prolonged hospitalization Admit to Provider:: Dr. Erickson Resuscitation Status: Do Not Resuscitate Admit to:: Other Level of Care required: Skilled (SNF) ACTIVITY ORDERS: Activity Comment: ENCOURAGE ACTIVITY, UP IN CHAIR AT LEAST 20 MIN TID Activity: Normal activity as carla NH D/C Potential: Discharge Potential: Poor Rehab Potential: Poor Plan of Care Discharge Date 08/07/16 10:34am Disposition [facility]ACILITY Instructions/Education Provided Colostomy Creation (GEN) Tube Feeding (GEN) Prescriptions See Medication Section Follow-up Orders CBC w/ Diff CMP Referrals Pawan Lopez MD (Urology) - IN 1 WEEK Address: [address] [place] [address] [address] [place] [address] Reason(s) for Referral: Status post colectomy Urinary tract infection Colovesical fistula Recurrent UTI FLORENTINO ERICKSON DO (Medical) - IN 2 WEEKS Address: [address] [place] [address] Reason(s) for Referral: Anemia ED QUIROZ MD (General Surgery) - 08/12/16 Address: [place] [address] Reason(s) for Referral: Status post [...] 04/08/2016 9:23am 04/08/2016 9: 44am Urine Specific [place] 1.015 1.005-1.035 04/08/2016 9:23am 2015 9:44am Urine [...] 04/18/2016 12:30pm 04/18/2016 12: 58pm Urine Specific [place] 1.015 1.005-1.035 04/18/2016 12:30pm 2015 12:58pm Urine [...] 04/29/2016 12:02pm 04/29/2016 12: 17pm Urine Specific [place] 1.020 1.005-1.035 04/29/2016 12:02pm 2015 12:17pm Urine [...] 05/12/2016 8:21am 05/12/2016 9: 49am Urine Specific [place] 1.015 1.005-1.035 05/12/2016 8:2015 9:49am Urine Occult [...] 05/13/2016 4:30pm 05/13/2016 5: 34pm Urine Specific [place] 1.010 1.005-1.035 05/13/2016 4:30pm 2015 5:34pm Urine [...] NEGATIVE 05/27/2016 2:1105/27/2016 3: 16pm Urine Specific [place] 1.010 1.005-1.035 05/27/2016 2:11pm 2015 3:16pm Urine [...] 06/15/2016 1:40pm 06/15/2016 2: 12pm Urine Specific [place] 1.015 1.005-1.035 06/15/2016 1:40pm 2015 2:12pm Urine [...] NEGATIVE 08/05/2016 2:2208/05/2016 7: 42am Urine Specific [place] 1.020 1.005-1.035 08/05/2016 2:222015 7:42am Urine Occult [...] Date Discharge/Depart Date Attending Provider Discharged Inpatient [facility] 07/14/16 2:20pm 08/07/16 10:34am FLORENTINO ERICKSON DO Departed Emergency Room [facility] 06/22/16 9:15am 12:25pm Riya Gallegos Departed Emergency Room [facility] 06/20/16 2:49pm 4:22pm Johnathon Dallas MD Discharged Inpatient [facility] 06/14/16 9:50am 06/17/16 12:55pm FLORENTINO ERICKSON DO Discharged Recurring [facility] 06/12/16 1:45pm 07/06/16 11:59pm FLORENTINO ERICKSON DO Departed Clinic [facility] 06/12/16 1:20pm 06/12/16 1: 30pm FLORENTINO ERICKSON DO Office Visit [facility] 06/12/16 1:00pm FLORENTINO ERICKSON DO Registered Practice [facility] 06/12/16 1:00pm FLORENTINO ERICKSON DO Registered Clinic [facility] 05/28/16 10:52am FLORENTINO ERICKSON DO Office Visit [facility] 05/28/16 10:00am FLORENTINO ERICKSON DO Departed Clinic [facility] 05/27/16 2:11pm 05/27/16 11: 59pm FLORENTINO ERICKSON DO Discharged Inpatient [facility] 05/16/16 1:25pm 05/18/16 2 :40pm FLORENTINO ERICKSON DO Discharged Inpatient [facility] 05/13/16 1:05pm 05/16/16 1 :25pm FLORENTINO ERICKSON DO Office Visit [facility] 05/13/16 10:45am Micah Chen Departed Clinic [facility] 05/12/16 8:17am 05/12/16 11: 59pm Micah Chen PA Discharged Recurring [facility] 05/07/16 7:29am 06/05/16 11:59pm Micah Chen PA Discharged Recurring [facility] 05/04/16 7:26pm 05/06/16 11:59pm Micah Chen PA Departed Clinic [facility] 04/29/16 11:41am 04/29/16 11: 59pm Micah Chen PA Office Visit [facility] 04/21/16 2:00pm Micah Chen PA Discharged Inpatient (obs) [facility] 04/18/16 1:50pm 6:00pm Librado Perales DO Departed Emergency Room [facility] 04/18/16 10:58am 1:50pm Librado Perales DO Office Visit [facility] 04/15/16 1:00pm Micah Chen PA Departed Clinic [facility] 04/15/16 12:26pm 04/15/16 11: 59pm Micah Chen Departed Clinic [facility] 04/08/16 11:18am 04/08/16 11: 59pm Riya Gallegos Departed Clinic [facility] 04/08/16 9:20am 04/08/16 11: 59pm Riya Gallegos Office Visit [facility] 04/08/16 8:30am Riya Gallegos Departed Clinic [facility] 03/24/16 8:54am 03/24/16 11: 59pm Micah Chen PA Departed Clinic [facility] 03/24/16 8:34am 03/24/16 11: 59pm Micah Chen PA Office Visit [facility] 03/24/16 8:30am Micah Chen PA Departed Clinic [facility] 01/16/16 2:37pm 01/16/16 11: 59pm Micah Chen Departed Clinic [facility] 01/16/16 2:24pm 01/16/16 11: 59pm Micah Chen PA Office Visit [facility] 01/16/16 2:15pm Micah Chen Departed Clinic [facility] 01/09/15 9:18am 01/09/15 11: 59pm Micah Chen Office Visit [facility] 01/09/15 8:45am Micah Chen Office Visit [facility] 03/16/11 10:00am Micah Chen Discharged Inpatient (obs) [facility] 02/28/11 2:00am 31/07 11:50am Johnathon Dallas MD Departed Emergency Room [facility] 02/28/11 12:46am 2:00am Johnathon Dallas MD Registered Surgical Day Care [facility] 10/12/07 1:46pm Recent Diagnosis Diarrhea Nausea & vomiting Repeated falls Sepsis UTI (urinary tract infection) Urinary tract infection Weakness
--- OUTSIDE RECORDS SUMMARY | 2016-11-02 13:49 | XMS REPORT | Referral Summary ---
Author Author [facility] Organization [facility] Address Unknown Phone Unavailable Care Team Providers Care Formula Mixer Name Role Phone Allan James Primary Care Physician [phone] Encounter VC Date(s): 03/07/15 - 03/07/15 [facility] [address] [address] [facility] Discharge Diagnosis: Hypothyroid Discharge Disposition: [...] 90 tabs, 9 Refill(s) , KALIE, eRx: [facility] #[id number], TAKE ONE TABLET BY MOUTH EVERY MORNING [...] hormone). 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 SYMPTOMS Lethargy (feeling as though [...] 11/14/2012 Document Reviewed: ExitCare Patient Information 2014 [employer]. No follow up information was provided.
--- OUTSIDE RECORDS SUMMARY | 2016-11-02 13:50 | XMS REPORT | Continuity of Care Document ---
Author Author [facility] Organization [facility] Address Unknown Phone Unavailable Support Name Relationship Address Phone FLORENTINO ERICKSON DO Caregiver [address] [place] [address] JESUS MANUEL ARAUOJ [place] [address] Insurance Providers Payer Name Policy Number Subscriber Name Relationship s Medicare [id number] Primitivo Yip 18 Self / Same As Patient Formerly [facility] Employee [facility] [id number] Primitivo Yip 18 Self / Same As Patient Chief Complaint and Reason for Visit Reason for Visit Fracture, rib Repeated falls UTI (urinary tract infection) Weakness Problems Active [...] 100 Mg 100 Mg Oral Daily @89901/09/15 Guaifenesin 1,200 Mg 600 Mg Oral As Directed 60 600MG PO Q AM 1200MG PO Q HS 05/13/16 Past Home Medications Medication Directions Ordered Status [...] 100 Mg Oral Twice A Day Discontinued Social History Query Response Start Date Stop Date Smoking Status Current every day smoker Hospital Discharge Instructions No hospital discharge instructions. Plan of Care Discharge Date 05/16/16 1:25pm Disposition [facility] Instructions/Education Provided Urinary Tract Infection in Men (DC) Chronic Obstructive Pulmonary Disease (DC) Chronic Obstructive Pulmonary Disease (GEN) Clostridium Difficile Infection (GEN) Prescriptions See Medication Section Functional Status No functional status results. Allergies, Adverse Reactions, Alerts Allergen Type Severity Reaction Status Last Updated Sulfonylureas Allergy Unknown Active 09/04/08 Amoxicillin Allergy Unknown Active 09/04/08 Immunizations Name Given Type ZOSTAVAX 04/08/15 Administered Vital Signs Acute Vital Signs Vital Response Date/Time Height 6 ft 0 in Weight 138 lb Body Mass Index 18.7 kg/m^2 Ambulatory Vital Signs Vital Response Date/Time [...] Result 1 Growth detected H NONE 01/16/2016 [facility] 2015 6:39am Urine Culture Result 3 [...] 04/08/2016 9:23am 04/08/2016 9: 44am Urine Specific [place] 1.015 1.005-1.035 04/08/2016 9:23am 2015 9:44am Urine [...] 04/18/2016 12:30pm 04/18/2016 12: 58pm Urine Specific [place] 1.015 1.005-1.035 04/18/2016 12:30pm 2015 12:58pm Urine [...] 04/29/2016 12:02pm 04/29/2016 12: 17pm Urine Specific [place] 1.020 1.005-1.035 04/29/2016 12:02pm 2015 12:17pm Urine [...] NEGATIVE 05/12/2016 8:05/12/2016 9: 49am Urine Specific [place] 1.015 1.005-1.035 05/12/2016 8:2015 9:49am Urine Occult [...] 05/13/2016 4:30pm 05/13/2016 5: 34pm Urine Specific [place] 1.010 1.005-1.035 05/13/2016 4:30pm 2015 5:34pm Urine [...] See Separate Report 05/13/2016 5:25pm 2015 1:40pm Procedures No known history of procedures. Encounters Encounter Location Arrival/Admit Date Discharge/Depart Date Attending Provider Discharged Inpatient [facility] 05/13/16 1:05pm 05/16/16 1 :25pm FLORENTINO ERICKSON DO Office Visit [facility] 05/13/16 10:45am Micah Chen Registered Practice [facility] 05/13/16 10:45am Micah Chen Departed Clinic [facility] 05/12/16 8:17am 05/12/16 11: 59pm Micah Chen PA Registered Recurring [facility] 05/07/16 7:29am Micah Chen PA Discharged Recurring [facility] 05/04/16 7:26pm 05/06/16 11:59pm Micah Chen PA Registered Clinic [facility] 04/29/16 11:41am Micah Chen PA Office Visit [facility] 04/21/16 2:00pm Micah Chen PA Discharged Inpatient (obs) [facility] 04/18/16 1:50pm 6:00pm Librado Perales DO Departed Emergency Room [facility] 04/18/16 10:58am 1:50pm Librado Perales DO Office Visit [facility] 04/15/16 1:00pm Micah Chen PA Departed Clinic [facility] 04/15/16 12:26pm 04/15/16 11: 59pm Micah Chen PA Departed Clinic [facility] 04/08/16 11:18am 04/08/16 11: 59pm Riya Gallegos Departed Clinic [facility] 04/08/16 9:20am 04/08/16 11: 59pm Riya Gallegos Office Visit [facility] 04/08/16 8:30am Riya Gallegos Departed Clinic [facility] 03/24/16 8:54am 03/24/16 11: 59pm Micah Chen PA Departed Clinic [facility] 03/24/16 8:34am 03/24/16 11: 59pm Micah Chen PA Office Visit [facility] 03/24/16 8:30am Micah Chen PA Departed Clinic [facility] 01/16/16 2:37pm 01/16/16 11: 59pm Micah Chen PA Departed Clinic [facility] 01/16/16 2:24pm 01/16/16 11: 59pm Micah Chen PA Office Visit [facility] 01/16/16 2:15pm Micah Chen Departed Clinic [facility] 01/09/15 9:18am 01/09/15 11: 59pm Micah Chen PA Office Visit [facility] 01/09/15 8:45am Micah Chen PA Office Visit [facility] 03/16/11 10:00am Micah Chen Discharged Inpatient (obs) [facility] 02/28/11 2:00am 31/07 11:50am Johnathon Dallas MD Departed Emergency Room [facility] 02/28/11 12:46am 2:00am Johnathon Dallas MD Registered Surgical Day Care [facility] 10/12/07 1:46pm Recent Diagnosis Fracture, rib Repeated falls UTI (urinary tract infection) Weakness
--- OUTSIDE RECORDS SUMMARY | 2016-11-02 13:50 | XMS REPORT | Continuity of Care Document ---
Author Author [facility] Organization [facility] Address Unknown Phone Unavailable Care Team Providers Care Catering Cook Name Role Phone FLORENTINO ERICKSON DO Primary Care Physician [phone] Insurance Providers Payer Name Policy Number Subscriber Name Relationship s Medicare [id number] Primitivo Yip 18 Self / Same As Patient [facility] Employee [facility] [id number] Primitivo Yip 18 Self / Same As Patient Chief Complaint and Reason for Visit Chief Complaint Male Urogenital Problems Reason for Visit Sepsis Urinary tract infection [id number] Problems Active Problems Medical Problem Onset Date Status Bladder stone Unknown Acute C. difficile diarrhea Unknown Acute COPD (chronic obstructive pulmonary disease) Unknown Acute [place]-vesical fistula Unknown Acute Colovesical fistula Unknown Acute [...] ERICKSON DO - Additional Instructions/Education transfer to [facility] to c/o Dr. Butler via EMS Functional [...] 04/08/2016 9:23am 04/08/2016 9: 44am Urine Specific [place] 1.015 1.005-1.035 04/08/2016 9:23am 2015 9:44am Urine [...] 04/18/2016 12:30pm 04/18/2016 12: 58pm Urine Specific [place] 1.015 1.005-1.035 04/18/2016 12:30pm 2015 12:58pm Urine [...] 04/29/2016 12:02pm 04/29/2016 12: 17pm Urine Specific [place] 1.020 1.005-1.035 04/29/2016 12:02pm 2015 12:17pm Urine [...] 05/12/2016 8:21am 05/12/2016 9: 49am Urine Specific [place] 1.015 1.005-1.035 05/12/2016 8:21am 2015 9:49am Urine [...] 05/13/2016 4:30pm 05/13/2016 5: 34pm Urine Specific [place] 1.010 1.005-1.035 05/13/2016 4:30pm 2015 5:34pm Urine [...] NEGATIVE 05/27/2016 2:1105/27/2016 3: 16pm Urine Specific [place] 1.010 1.005-1.035 05/27/2016 2:112015 3:16pm Urine Occult [...] 06/15/2016 1:40pm 06/15/2016 2: 12pm Urine Specific [place] 1.015 1.005-1.035 06/15/2016 1:40pm 2015 2:12pm Urine [...] 9: 44am CALLED TO THANH WELCH @ 0904 BY JASON Red Blood Count 3.47 M/mm3 [...] Discharge/Depart Date Attending Provider Departed Emergency Room [facility] 06/22/16 9:15am 12:25pm Riya Gallegos Departed Emergency Room [facility] 06/20/16 2:49pm 4:22pm Johnathon Dallas MD Discharged Inpatient [facility] 06/14/16 9:50am 06/17/16 12:55pm LFORENTINO ERICKSON DO Registered Recurring [facility] 06/12/16 1:45pm FLORENTINO ERICKSON DO Office Visit [facility] 06/12/16 1:00pm FLORENTINO ERICKSON DO Registered Practice [facility] 06/12/16 1:00pm FLORENTINO ERICKSON DO Registered Clinic [facility] 05/28/16 10:52am FLORENTINO ERICKSON DO Office Visit [facility] 05/28/16 10:00am FLORENTINO ERICKSON DO Departed Clinic [facility] 05/27/16 2:11pm 05/27/16 11: 59pm FLORENTINO ERICKSON DO Discharged Inpatient [facility] 05/16/16 1:25pm 05/18/16 2 :40pm FLROENTINO ERICKSON DO Discharged Inpatient [facility] 05/13/16 1:05pm 05/16/16 1 :25pm FLORENTINO ERICKSON DO Office Visit [facility] 05/13/16 10:45am Micah Chen PA Departed Clinic [facility] 05/12/16 8:17am 05/12/16 11: 59pm Micah Chen PA Discharged Recurring [facility] 05/07/16 7:29am 06/05/16 11:59pm Micah Chen PA Discharged Recurring [facility] 05/04/16 7:26pm 05/06/16 11:59pm Micah Chen PA Registered Clinic [facility] 04/29/16 11:41am Micah Chen PA Office Visit [facility] 04/21/16 2:00pm Micah Chen PA Discharged Inpatient (obs) [facility] 04/18/16 1:50pm 6:00pm Librado Perales DO Departed Emergency Room [facility] 04/18/16 10:58am 1:50pm Librado Perales DO Office Visit [facility] 04/15/16 1:00pm Micah Chen PA Departed Clinic [facility] 04/15/16 12:26pm 04/15/16 11: 59pm Micah Chen PA Departed Clinic [facility] 08/03/16 11:18am 04/08/16 11: 59pm Riya Gallegos Departed Clinic [facility] 04/08/16 9:20am 04/08/16 11: 59pm Riya Gallegos Office Visit [facility] 04/08/16 8:30am Riya Gallegos Departed Clinic [facility] 03/24/16 8:54am 03/24/16 11: 59pm Micah Chen PA Departed Clinic [facility] 03/24/16 8:34am 03/24/16 11: 59pm Micah Chen PA Office Visit [facility] 03/24/16 8:30am Micah Chen PA Departed Clinic [facility] 01/16/16 2:37pm 01/16/16 11: 59pm Micah Chen PA Departed Clinic [facility] 01/16/16 2:24pm 01/16/16 11: 59pm Micah Chen PA Office Visit [facility] 01/16/16 2:15pm Micah Chen PA Departed Clinic [facility] 01/09/15 9:18am 01/09/15 11: 59pm Micah Chen PA Office Visit [facility] 01/09/15 8:45am Micah Chen PA Office Visit [facility] 03/16/11 10:00am Micah Chen PA Discharged Inpatient (obs) [facility] 02/28/11 2:00am 31/07 11:50am Johnathon Dallas MD Departed Emergency Room [facility] 02/28/11 12:46am 2:00am Johnathon Dallas MD Registered Surgical Day Care [facility] 10/12/07 1:46pm Recent Diagnosis
--- OUTSIDE RECORDS SUMMARY | 2016-11-02 13:50 | XMS REPORT | Continuity of Care Document ---
Author Author [facility] Organization [facility] Address Unknown Phone Unavailable Support Name Relationship Address Phone Rosy Riya ALL Caregiver [address] [place] [address] SOHAILNOEE Next Of Kin [address] [place] [address] Insurance Providers Payer Name Policy Number Subscriber Name Relationship s Medicare [id number] Primitivo Yip 18 Self / Same As Patient [employer] Employee [facility] [id number] Primitivo Yip 18 Self / Same As [...] 04/08/2016 9:23am 04/08/2016 9: 44am Urine Specific [place] 1.015 1.005-1.035 04/08/2016 9:23am 2015 9:44am Urine [...] Date Discharge/Depart Date Attending Provider Departed Clinic [facility] 04/08/16 11:18am 04/08/16 11: 59pm Riya Gallegos Departed [facility] 04/08/16 9:20am 04/08/16 11: 59pm Riya Gallegos Office Visit [facility] 04/08/16 8:30am Riya Gallegos Registered Practice [facility] 04/08/16 8:30am Riya Gallegos Departed Clinic [facility] 03/24/16 8:54am 03/24/16 11: 59pm Micah Chen Office Visit [facility] 03/24/16 8:30am Micah Chen Departed Clinic [facility] 01/16/16 2:37pm 01/16/16 11: 59pm Micah Chen PA Departed [facility] 01/16/16 2:24pm 01/16/16 11: 59pm Micah Chen PA Office Visit [facility] 01/16/16 2:15pm Micah Chen Departed Clinic [facility] 01/09/15 9:18am 01/09/15 11: 59pm Micah Chen Office Visit [facility] 01/09/15 8:45am Micah Chen Office Visit [facility] 03/16/11 10:00am Micah Chen Discharged Inpatient (obs) [facility] 02/28/11 2:00am 31/07 11:50am Johnathon Dallas MD Departed Emergency Room [facility] 02/28/11 12:46am 2:00am Johnathon Dallas MD Registered Surgical Day Care [facility] 10/12/07 1:46pm
--- OUTSIDE RECORDS SUMMARY | 2016-11-02 13:50 | XMS REPORT | Continuity of Care Document ---
Author Author [facility] Address Unknown Phone Unavailable Allergies Active [...] Status Pt. Type Provider Facility Loc./Unit Complaint [id number] 03/11/2016 15:42:59 03/11/2016 23: 59:59 [facility] Outpatient Florencio Sung [id number] 03/04/2016 09:09:18 03/04/2016 23: 59:59 [facility] Outpatient Florencio Sung [id number] 12/04/2015 09:06:51 12/04/2015 23: 59:59 [facility] Outpatient Florencio Sung [id number] 06/11/2015 09:35:09 06/11/2015 23: 59:59 [facility] Outpatient Florencio Sung [id number] 06/07/2015 09:06:52 06/07/2015 23: 59:59 [facility] Outpatient Florencio Sung [id number] 12/10/2014 11:05:54 12/10/2014 23: 59:59 [facility] Outpatient Juan Carlos Sanabria [id number] 12/03/2014 09:18:16 12/03/2014 23: 59:59 [facility] Outpatient Juan Carlos Sanabria [id number] 06/11/2014 11:04:13 06/11/2014 23: 59:59 [facility] Outpatient Juan Carlos Sanabria [id number] 04/26/2014 08:49:57 04/26/2014 23: 59:59 [facility] Outpatient Juan Carlos Sanabria [id number] 04/18/2014 08:55:23 04/18/2014 23: 59:59 [facility] Outpatient Juan Carlos Sanabria [id number] 09/27/2013 11:50:20 09/27/2013 23: 59:59 [facility] Outpatient Juan Carlos Sanabria [id number] 09/08/2013 10:03:37 09/08/2013 23: 59:59 [facility] Outpatient Juan Carlos Sanabria [id number] 03/13/2013 09:21:59 03/13/2013 23: 59:59 [facility] Outpatient Juan Carlos Sanabria [id number] 03/06/2013 09:06:43 03/06/2013 23: 59:59 [facility] Outpatient Juan Carlos Sanabria
--- OUTSIDE RECORDS SUMMARY | 2016-11-02 13:51 | XMS REPORT | Referral Summary ---
Author Author [facility] Organization [facility] Address Unknown Phone Unavailable Care Team Providers Care Glass Blower Helper Name Role Phone Allan James Primary Care Physician [phone] Encounter VC Date(s): 03/07/15 - 03/07/15 [facility] [address] [address] [facility] Discharge Diagnosis: Hypothyroid Discharge Disposition: 01-Home [...] 90 tabs, 9 Refill(s) , KALIE, eRx: [facility] #[id number], TAKE ONE TABLET BY MOUTH EVERY MORNING [...] hormone). 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 SYMPTOMS Lethargy (feeling [...] 11/14/2012 Document Reviewed: ExitCare Patient Information 2014 [employer]. No follow up information was provided.
--- OUTSIDE RECORDS SUMMARY | 2016-11-02 13:51 | XMS REPORT | Continuity of Care Document ---
Author Author [facility] Organization [facility] Address Unknown Phone Unavailable Support Name Relationship Address Phone Micah Chen Caregiver [address] [place] [address] SOHAIL KATARINA Next Of Kin [address] [place], [place] [address] Insurance Providers Payer Name Policy Number Subscriber Name Relationship s Medicare [id number] Primitivo Yip 18 Self / Same As Patient [employer] Heal [id number] Primitivo Yip 18 Self / Same As [...] 1 Each 1 Each Oral Daily @899 Cephalexin 500 Mg 500 Mg Oral Three Times A Day 30 01/09/15 Albuterol Sulfate 2.5 Mg/3 Ml 2.5 Mg Nebulizer Three Times A Day 02/18 Budesonide 0.5 Mg/2 Ml 0.5 Mg Nebulizer Twice A Day 01/09/15 Niacin 500 Mg 500 Mg Oral 2TABS Daily 01/09/15 Metoprolol Tartrate 100 Mg 100 Mg Oral Daily @0901/09/15 Ciprofloxacin Hcl 500 Mg 500 Mg Oral Twice A Day 01/16/16 Social History No social history. Hospital Discharge Instructions No hospital discharge instructions. Plan of Care Discharge Date 01/16/16 11:59pm Prescriptions See Medication Section Functional Status No functional status results. Allergies, Adverse Reactions, Alerts Allergen Type Severity Reaction Status Last Updated Sulfonylureas Allergy Unknown Active 09/04/08 Amoxicillin Allergy Unknown Active 09/04/08 Immunizations No immunization records. Vital Signs Ambulatory Vital Signs Vital Response Date/Time Height 6 ft 01/16/2016 2:16pm Weight 146 lbs 4 oz 01/16/2016 2:16pm Temperature, Temporal 97.7 degrees F 01/16/2016 2:16pm Blood Pressure, Sitting 130/84 mm Hg 01/16/2016 2:16pm Pulse Rate 72 bpm 01/16/2016 2:16pm Respiration Rate 16 bpm 01/16/2016 2:16pm Body Surface Area 1.83 m2 01/16/2016 2:16pm Body Mass Index 19.8 kg/m2 01/16/2016 2:16pm Pulse Oximetry Pulse Oximetry 01/16/2016 2:16pm Results Laboratory Results Test Name Result Units [...] Corpuscular Volume 99.7 fl H 80-94 01/09/2015 9:24am 01/09/2015 11: 40am Mean Corpuscular Hemoglobin 34 pg [...] Separate Report 01/16/2016 UNK 01/19/2016 1 :18pm Procedures No known history of procedures. Encounters Encounter Location Arrival/Admit Date Discharge/Depart Date Attending Provider Departed Clinic [facility] 01/16/16 2:37pm 01/16/16 11: 59pm Micah Chen Departed Clinic [facility] 01/16/16 2:24pm 01/16/16 11: 59pm Micah Chen PA Office Visit [facility] 01/16/16 2:15pm Micah Chen PA Registered Practice [facility] 01/16/16 2:15pm Micah Chen Departed Clinic [facility] 01/09/15 9:18am 01/09/15 11: 59pm Micah Chen PA Office Visit [facility] 01/09/15 8:45am Micah Chen PA Office Visit [facility] 03/16/11 10:00am Micah Chen Discharged Inpatient (obs) [facility] 02/28/11 2:00am 31/07 11:50am Johnathon Dallas MD Departed Emergency Room [facility] 02/28/11 12:46am 2:00am Johnathon Dallas MD Registered Surgical Day Care [facility] 10/12/07 1:46pm
--- OUTSIDE RECORDS SUMMARY | 2016-11-02 13:51 | XMS REPORT | Continuity of Care Document ---
Author Author [facility] Organization [facility] Address Unknown Phone Unavailable Care Team Providers Care Oil Transport Driver Name Role Phone FLORENTINO ERICKSON DO Primary Care Physician [phone] Insurance Providers Payer Name Policy Number Subscriber Name Relationship Wps Medicare [id number] Primitivo Yip 18 Self / Same As Patient [employer] Heal [id number] Primitivo Yip 18 Self / Same As Patient Problems Active Problems Medical Problem Onset Date Status Anemia Unknown Acute Bladder stone Unknown Acute C. difficile colitis Unknown Acute C. 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 [...] Sulfate 18 Gm 2 Puffs Inhalation Every 4 Hours as needed for Shortness Of Breath 01/09/15 Guaifenesin 600 Mg 600 Mg Oral As Directed 600 MG Q AM 1200 MG Q HS Ferrous Sulfate 324 Mg 324 Mg Oral Twice A Day 60 08/04/16 Lorazepam 0.5 Mg 0.25 Mg Oral Three Times A Day 90 08/04/16 Citalopram Hydrobromide 20 Mg 20 Mg Oral Daily @0900 90 08/07/16 Hydrocodone/Acetaminophen 5/325 1 Each 1-2 Each Oral .q4h as needed for Pain 120 08/07/16 Omeprazole Magnesium 20 Mg 20 Mg Oral Daily @89909/17/16 Acetaminophen 325 Mg 2 Tab Oral Three Times A Day as needed for Pain/Fever 09/18/16 Polyvinyl Alcohol 15 Ml 2 Drop Both Eyes 4 Times Daily 09/18/16 Past Home Medications Medication Directions Ordered Status [...] 50 Mg Oral Daily @0900 06/04/16 Discontinued Budesonide 0.5 Mg/2 Ml Ampul.neb, 0.5 Mg Inhalation Twice A Day 06/14/16 Discontinued Niacin (Inositol Niacinate) 500 Mg Capsule, 1 Cap Oral Daily @ Hs 06/14/16 Discontinued Nitrofurantoin Monohyd/M-Cryst 100 Mg Capsule, 100 Mg Oral Daily @0900 Discontinued Metoprolol Tartrate 50 Mg Tablet, 25 Mg Oral Daily @0906/16/16 Discontinued Phenazopyridine Hcl 100 Mg Tablet, 100 Mg Oral Three Times A Day as needed for Pain 06/22/16 Discontinued Acetylcysteine 200 Mg/1 Ml Vial, 2 Ml Inhalation Rt Bid 08/04/16 Discontinued Ipratropium/Albuterol Sulfate 3 Ml Neb, 3 Ml Inhalation Rt Qid Times Discontinued Quetiapine Fumarate 25 Mg Tablet, 25 Mg Oral Daily@17 08/04/16 Discontinued Iron Sucrose Complex 200 Mg/10 Ml Vial, 200 Mg Intraven Once 08/07/16 Discontinued Social History No social history. Hospital Discharge Instructions No hospital discharge instructions. Plan of Care Discharge Date 09/18/16 11:59pm Prescriptions See Medication Section Functional Status No functional status results. Allergies, Adverse Reactions, Alerts Allergen Type Severity Reaction Status Last Updated Sulfa (Sulfonamide Antibiotics) Adverse Reaction Unknown nausea Active 04/21 Amoxicillin Allergy Severe Active 06/14/16 Immunizations Name Given Type ZOSTAVAX 04/08/15 Administered Pneumococcal conjugate PCV 13 06/14/16 Administered Pneumococcal conjugate PCV 13 06/17/16 Administered Vital Signs Ambulatory Vital Signs Vital Response Date/Time Height 5 ft 10.750 in 09/18/2016 11:02am Weight 104 lbs 09/18/2016 11:02am Temperature, Temporal 97.8 degrees F 09/18/2016 11:02am Blood Pressure, Sitting, Left Arm 116/64 mm Hg 09/18/2016 11:02am Pulse Rate 80 bpm 09/18/2016 11:02am Respiration Rate 16 bpm 09/18/2016 11:02am Body Surface Area 1.51 m2 09/18/2016 11:02am Body Mass Index 14.6 kg/m2 09/18/2016 11:02am Pulse Oximetry Pulse Oximetry 09/18/2016 11:02am Results Laboratory Results Test Name Result Units [...] 6:47am 02/28/2011 7:41am Albumin/Globulin Ratio 0.9 02/28/2011 6:4702/28/2011 7:41am Total Bilirubin 0.75 mg/dL 0.2-1.0 02/28/2011 6:4702/28/2011 7:41am Aspartate Amino Transf (AST/SGOT) 24 U/L 15-37 02/28/2011 6:47am 2010 7:41am Alanine Aminotransferase (ALT/SGPT) 27 U/L L 30-65 02/28/2011 6:47 7:41am Alkaline Phosphatase 84.0 U/L 50-136 02/28/2011 6:4702/28/2011 7: 41am Globulin 3.3 gm/dL 2.0-4.5 02/28/2011 6:4702/28/2011 7:41am White Blood Count 9.13 K/mm3 4.5-10.5 [...] Urine Glucose (UA) NEGATIVE mg/dL NEGATIVE 04/08/2016 9:232015 9:44am Urine Bilirubin NEGATIVE NEGATIVE 04/08/2016 9:2304/08/2016 9: 44am Urine Ketones NEGATIVE mg/dL NEGATIVE 04/08/2016 9:23am 04/08/2016 9: 44am Urine Specific [place] 1.015 1.005-1.035 04/08/2016 9:232015 9:44am Urine Occult Blood 1+ SMALL H NEGATIVE 04/08/2016 9:2304/08/2016 9: 44am Urine pH 7.0 04/08/2016 9:2304/08/2016 9:44am Urine Protein TRACE mg/dL H NEGATIVE 04/08/2016 9:23am 04/08/2016 9: 44am Urine Urobilinogen 0.2 E.U./dL NORMAL 04/08/2016 9:2304/08/2016 9: 44am Urine Nitrate NEGATIVE NEGATIVE 04/08/2016 9:2304/08/2016 9:44am Urine Leukocyte Esterase 1+ SMALL H NEGATIVE 04/08/2016 9:232015 9:44am URINE HAS BEEN SENT FOR CULTURE [...] 04/18/2016 12:30pm 04/18/2016 12: 58pm Urine Specific [place] 1.015 1.005-1.035 04/18/2016 12:30pm 2015 12:58pm Urine [...] 04/29/2016 12:02pm 04/29/2016 12: 17pm Urine Specific [place] 1.020 1.005-1.035 04/29/2016 12:02pm 2015 12:17pm Urine [...] NEGATIVE 05/12/2016 8:05/12/2016 9: 49am Urine Specific [place] 1.015 1.005-1.035 05/12/2016 8:2015 9:49am Urine Occult [...] 05/13/2016 4:30pm 05/13/2016 5: 34pm Urine Specific [place] 1.010 1.005-1.035 05/13/2016 4:30pm 2015 5:34pm Urine [...] 2:1105/27/2016 3:16pm Urine Appearance TURBID CLEAR 05/27/2016 2:11pm 05/27/2016 3:16pm Urine Glucose (UA) NEGATIVE mg/dL NEGATIVE 05/27/2016 2:11pm 2015 3:16pm Urine Bilirubin NEGATIVE NEGATIVE 05/27/2016 2:1105/27/2016 3: 16pm Urine Ketones NEGATIVE mg/dL NEGATIVE 05/27/2016 2:1105/27/2016 3: 16pm Urine Specific [place] 1.010 1.005-1.035 05/27/2016 2:11pm 2015 3:16pm Urine Occult Blood 2+ MODERATE H NEGATIVE 05/27/2016 2:11pm 2015 3:16pm Urine pH 7.0 05/27/2016 2:11pm 05/27/2016 3:16pm Urine Protein 1+ 30 mg/dL mg/dL H NEGATIVE 05/27/2016 2:1105/27/2016 3:16pm Urine Urobilinogen 0.2 E.U./dL NORMAL 05/27/2016 2:11pm 05/27/2016 3: 16pm Urine Nitrate POSITIVE H NEGATIVE 05/27/2016 2:05/27/2016 3:16pm URINE HAS BEEN SENT FOR CULTURE [...] 06/15/2016 1:40pm 06/15/2016 2: 12pm Urine Specific [place] 1.015 1.005-1.035 06/15/2016 1:40pm 2015 2:12pm Urine [...] RANGE: 0.550-1.3 mg/dL BUN/Creatinine Ratio 9.41 L 12-06/17/2016 6:20am 06/17/2016 7:22am Sodium Level 139 mEq/L [...] Cell Distribution-SD 49.9 fL H 35.1-43.9 06/22/2016 9:2015 9:44am RDW Coefficient of Variation 14.0 % [...] 08/03/2016 8:08am Urine Color GREEN STRAW 08/05/2016 2:08/05/2016 7:42am Urine Appearance CLOUDY CLEAR 08/05/2016 2:08/05/2016 7:42am Urine Glucose (UA) 100 mg/dL H NEGATIVE 08/05/2016 2:08/05/2016 7: 42am Urine Bilirubin NEGATIVE NEGATIVE 08/05/2016 2:08/05/2016 7: 42am Urine Ketones 5 TRACE mg/dL H NEGATIVE 08/05/2016 2:08/05/2016 7: 42am Urine Specific [place] 1.020 1.005-1.035 08/05/2016 2:2015 7:42am Urine Occult Blood 2+ MODERATE H NEGATIVE 08/05/2016 2:2015 7:42am Urine pH 8.5 08/05/2016 2:08/05/2016 7:42am Urine Protein 1+ 30 mg/dL mg/dL H NEGATIVE 08/05/2016 2:08/05/2016 7:42am Urine Urobilinogen 0.2 E.U./dL NORMAL 08/05/2016 2:08/05/2016 7: 42am Urine Nitrate NEGATIVE NEGATIVE 08/05/2016 2:08/05/2016 7:42am Urine Leukocyte Esterase TRACE H NEGATIVE 08/05/2016 2:2015 7:45am NO CULTURE SET. WAITING FOR CULTURE RESULTS OF 08/03/16. --- 08/05/16 0745 --- LEUK ISABELLE previously reported as: TRACE H URINE HAS BEEN SENT FOR CULTURE Urine RBC 3-5 /hpf H NONE 08/05/2016 2:08/05/2016 7:42am Urine WBC 30-50 /hpf H NONE 08/05/2016 2:08/05/2016 7:42am Urine Squamous Epithelial Cells NONE /lpf OCCASSIONAL 08/05/2016 2:2208/05/2016 7:42am Urine Bacteria MANY /hpf H NONE 08/05/2016 2:2208/05/2016 7:42am Urine Hyaline Casts 3-5 /lpf H [...] NEW RANGE: 0.550-1.3 mg/dL BUN/Creatinine Ratio 15.94 12-08/06/2016 6:55am 08/06/2016 7:41am Sodium Level 135 mEq/L [...] See Separate Report 07/31/2016 6:09pm 2015 1:42pm White Blood Count 12.40 K/mm3 H 4.5-10.5 09/18/2016 10:0209/18/2016 1 :13pm Red Blood Count 3.06 M/mm3 L 4.60-6.00 09/18/2016 10:0209/18/2016 1: 13pm Hemoglobin 9.7 gm/dl L 14.0-18.0 09/18/2016 10:0209/18/2016 1:13pm Hematocrit 30.9 % L 40-54 09/18/2016 10:0209/18/2016 1:13pm Mean Corpuscular Volume 101.0 fl H 80-94 09/18/2016 10:09/18/2016 1 :13pm Mean Corpuscular Hemoglobin 32 pg 26-32 09/18/2016 10:09/18/2016 1 :13pm Mean Corpuscular Hemoglobin Concent 31 g/dl L 32-36 09/18/2016 10:09/18/2016 1:13pm Red Cell Distribution-SD 52.9 fL H 35.1-43.9 09/18/2016 10:2016 1:13pm RDW Coefficient of Variation 14.9 % H 11.5-14.5 09/18/2016 10:09/18 1:13pm Platelet Count 277 K/mm3 150-450 09/18/2016 10:09/18/2016 1:13pm Mean Platelet Volume 8.8 fl L 9.4-12.4 09/18/2016 10:09/18/2016 1: 13pm Neutrophils (%) (Auto) 69.1 % 50-70 09/18/2016 10:09/18/2016 1: 13pm Lymphocytes (%) (Auto) 20.2 % 18-42 09/18/2016 10:09/18/2016 1: 13pm Monocytes (%) (Auto) 8.9 % 2-11 09/18/2016 10:09/18/2016 1:13pm Eosinophils (%) (Auto) 1.6 % 1-3 09/18/2016 10:0209/18/2016 1:13pm Basophils (%) (Auto) 0.2 % 0-2 09/18/2016 10:0209/18/2016 1:13pm Neutrophils # (Auto) 8.6 H 2-8 09/18/2016 10:0209/18/2016 1:13pm Lymphocytes # (Auto) 2.5 1-5 09/18/2016 10:0209/18/2016 1:13pm Monocytes # (Auto) 1.1 H 0.1-1.0 09/18/2016 10:0209/18/2016 1:13pm Eosinophils # (Auto) 0.2 0-0.4 09/18/2016 10:09/18/2016 1:13pm Basophils # (Auto) 0.0 K/mm3 0-0.2 09/18/2016 10:09/18/2016 1: 13pm Neutrophils 71 % H 50-70 09/18/2016 10:09/18/2016 1:57pm Band Neutrophils 0 % 0-5 09/18/2016 10:09/18/2016 1:57pm Lymphocytes (Manual) 22 % 18-42 09/18/2016 10:09/18/2016 1:57pm Monocytes (Manual) 5 % 2-11 09/18/2016 10:09/18/2016 1:57pm Eosinophils (Manual) 2 % 1-3 09/18/2016 10:09/18/2016 1:57pm Basophils (Manual) 0 % 0-2 09/18/2016 10:09/18/2016 1:57pm Platelet Estimate NORMAL NORMAL 09/18/2016 10:09/18/2016 1:57pm Hypochromasia 1+ 09/18/2016 10:09/18/2016 1:57pm Poikilocytosis 1+ 09/18/2016 10:0209/18/2016 1:57pm Macrocytosis 1+ 09/18/2016 10:0209/18/2016 1:57pm Ovalocytes 1+ 09/18/2016 10:09/18/2016 1:57pm Urine Color YELLOW STRAW 09/18/2016 10:09/18/2016 3:09pm Urine Appearance TURBID CLEAR 09/18/2016 10:02am 09/18/2016 3:09pm Urine Glucose (UA) NEGATIVE mg/dL NEGATIVE 09/18/2016 10:022016 3:09pm Urine Bilirubin NEGATIVE NEGATIVE 09/18/2016 10:0209/18/2016 3: 09pm Urine Ketones NEGATIVE mg/dL NEGATIVE 09/18/2016 10:02am 09/18/2016 3: 09pm Urine Specific [place] 1.020 1.005-1.035 09/18/2016 10:02am 2016 3:09pm Urine Occult Blood 3+ LARGE H NEGATIVE 09/18/2016 10:0209/18/2016 3 :09pm Urine pH 7.5 09/18/2016 10:02am 09/18/2016 3:09pm Urine Protein 1+ 30 mg/dL mg/dL H NEGATIVE 09/18/2016 10:02am 2016 3:09pm Urine Urobilinogen 0.2 E.U./dL NORMAL 09/18/2016 10:0209/18/2016 3: 09pm Urine Nitrate NEGATIVE NEGATIVE 09/18/2016 10:0209/18/2016 3:09pm Urine Leukocyte Esterase 3+ LARGE H NEGATIVE 09/18/2016 10:022016 3:09pm URINE HAS BEEN SENT FOR CULTURE Urine RBC 20-30 /hpf H NONE 09/18/2016 10:0209/18/2016 3:09pm Urine WBC 50+ /hpf H NONE 09/18/2016 10:0209/18/2016 3:09pm Urine Squamous Epithelial Cells OCCASSIONAL /lpf OCCASSIONAL 09/18/2016 10:0209/18/2016 3:09pm Urine Bacteria MODERATE /hpf H NONE 09/18/2016 10:0209/18/2016 3: 09pm Urine Amorphous Sediment FEW /hpf H NONE 09/18/2016 10:0209/18/2016 3 :09pm Urine Amorphous Sediment BUD YEAST W/HYPHAE H NONE 09/18/2016 10:02am 09/18/2016 3:09pm Urine Yeast MANY /hpf H NONE 09/18/2016 10:0209/18/2016 3:09pm Random Glucose 75 mg/dL 70-110 09/18/2016 10:0209/18/2016 1:38pm Blood Urea Nitrogen 14 mg/dL 7-18 09/18/2016 10:0209/18/2016 1:38pm Creatinine 0.67 mg/dL 0.550-1.3 09/18/2016 10:0209/18/2016 1:38pm NOTE REFERENCE RANGE CHANGE 03/05/15 REFERENCE RANGE CHANGE DUE TO NEW REAGENT PREVIOUS RANGE: 0.6-1.3 mg/dL NEW RANGE: 0.550-1.3 mg/dL BUN/Creatinine Ratio 20.89 12-09/18/2016 10:0209/18/2016 1: 38pm Sodium Level 132 mEq/L L 135-155 09/18/2016 10:0209/18/2016 1:38pm Potassium Level 4.4 mEq/L 3.5-5.1 09/18/2016 10:0209/18/2016 1:38pm Chloride Level 98 mEq/L 98-107 09/18/2016 10:0209/18/2016 1:38pm Carbon Dioxide Level 31 mEq/L 21-32 09/18/2016 10:0209/18/2016 1: 38pm Anion Gap 7.4 L 10-20 09/18/2016 10:0209/18/2016 1:38pm Calcium Level 8.9 mg/dL 8.2-10.0 09/18/2016 10:0209/18/2016 1:38pm Glomerular Filtration Rate Calc 119 09/18/2016 10:0209/18/2016 1 :38pm At increased risk Risk factors for CKD are present but w/o >90 markers of kidney damage 1 Kidney damage w/ normal or >90 increased GFR 2 Kidney damage w/ mild reduc- 60-89 tion of GFR 3 Moderate reduction of GFR 30-59 4 Severe reduction of GFR 15-29 5 Kidney Failure <15 Total Protein 7.1 gm/dL 6.4-8.2 09/18/2016 10:0209/18/2016 1:38pm Albumin 2.3 gm/dL L 3.4-5.0 09/18/2016 10:0209/18/2016 1:38pm Albumin/Globulin Ratio 0.5 09/18/2016 10:0209/18/2016 1:38pm Total Bilirubin 0.38 mg/dL 0.2-1.0 09/18/2016 10:0209/18/2016 1: 38pm Aspartate Amino Transf (AST/SGOT) 20 U/L 15-37 09/18/2016 10:0209/18 1:38pm Alanine Aminotransferase (ALT/SGPT) 13 U/L 12-78 09/18/2016 10:02 1:38pm Alkaline Phosphatase 78.0 U/L 46-116 09/18/2016 10:02am 09/18/2016 1: 38pm Lipase 42 U/L L 73-393 09/18/2016 10:0209/18/2016 1:38pm Globulin 4.8 gm/dL H 2.0-4.5 09/18/2016 10:02am 09/18/2016 1:38pm Procedures No known history of procedures. Encounters Encounter Location Arrival/Admit Date Discharge/Depart Date Attending Provider Departed Clinic [facility] 09/18/16 11:43am 09/18/16 11: 59pm FLORENTINO ERICKSON DO Office Visit [facility] 09/18/16 10:45am FLORENTINO ERICKSON DO Registered Practice [facility] 09/18/16 10:45am FLORENTINO ERICKSON DO Office Visit [facility] 08/21/16 10:00am FLORENTINO ERICKSON DO Discharged Inpatient [facility] 07/14/16 2:20pm 08/07/16 10:34am FLORENTINO ERICKSON DO Departed Emergency Room [facility] 06/22/16 9:15am 12:25pm Riya Gallegos Departed Emergency Room [facility] 06/20/16 2:49pm 4:22pm Johnathon Dallas MD Discharged Inpatient [facility] 06/14/16 9:50am 06/17/16 12:55pm FLORENTINO ERICKSON DO Discharged Recurring [facility] 06/12/16 1:45pm 07/06/16 11:59pm FLORENTINO ERICKSON DO Departed Clinic [facility] 06/12/16 1:20pm 06/12/16 1: 30pm FLORENTINO ERICKSON DO Office Visit [facility] 06/12/16 1:00pm FLORENTINO ERICKSON DO Registered Clinic [facility] 05/28/16 10:52am FLORENTINO ERICKSON DO Office Visit [facility] 05/28/16 10:00am FLORENTINO ERICKSON DO Departed Clinic [facility] 05/27/16 2:11pm 05/27/16 11: 59pm FLORENTINO ERICKSON DO Discharged Inpatient [facility] 05/16/16 1:25pm 05/18/16 2 :40pm FLORENTINO ERICKSON DO Discharged Inpatient [facility] 05/13/16 1:05pm 05/16/16 1 :25pm FLORENTINO ERICKSON DO Office Visit [facility] 05/13/16 10:45am Micah Chen PA Departed Clinic [facility] 05/12/16 8:17am 05/12/16 11: 59pm Micah Chen PA Discharged Recurring [facility] 05/07/16 7:29am 06/05/16 11:59pm Micah Chen PA Discharged Recurring [facility] 05/04/16 7:26pm 05/06/16 11:59pm Micah Chen PA Departed Clinic [facility] 04/29/16 11:41am 04/29/16 11: 59pm Micah Chen PA Office Visit [facility] 04/21/16 2:00pm Micah Chen PA Discharged Inpatient (obs) [facility] 04/18/16 1:50pm 6:00pm Librado Perales DO Departed Emergency Room [facility] 04/18/16 10:58am 1:50pm Librado Perales DO Office Visit [facility] 04/15/16 1:00pm Micah Chen PA Departed Clinic [facility] 04/15/16 12:26pm 04/15/16 11: 59pm Micah Chen Departed Clinic [facility] 04/08/16 11:18am 04/08/16 11: 59pm Riya Gallegos Departed Clinic [facility] 04/08/16 9:20am 04/08/16 11: 59pm Riya Gallegos Office Visit [facility] 04/08/16 8:30am Riya Gallegos Departed Clinic [facility] 03/24/16 8:54am 03/24/16 11: 59pm Micah Chen PA Departed Clinic [facility] 03/24/16 8:34am 03/24/16 11: 59pm Micah Chen PA Office Visit [facility] 03/24/16 8:30am Micah Chen PA Departed Clinic [facility] 01/16/16 2:37pm 01/16/16 11: 59pm Micah Chen Departed Clinic [facility] 01/16/16 2:24pm 01/16/16 11: 59pm Micah Chen PA Office Visit [facility] 01/16/16 2:15pm Micah Chen Departed Clinic [facility] 01/09/15 9:18am 01/09/15 11: 59pm Micah Chen PA Office Visit [facility] 01/09/15 8:45am Micah Chen PA Office Visit [facility] 03/16/11 10:00am Micah Chen Discharged Inpatient (obs) [facility] 02/28/11 2:00am 31/07 11:50am Johnathon Dallas MD Departed Emergency Room [facility] 02/28/11 12:46am 2:00am Johnathon Dallas MD Registered Surgical Day Care [facility] 10/12/07 1:46pm
--- OUTSIDE RECORDS SUMMARY | 2016-11-02 13:52 | XMS REPORT | Continuity of Care Document ---
Author Author [facility] Organization [facility] Address Unknown Phone Unavailable Support Name Relationship Address Phone FLORENTINO ERICKSON DO Caregiver [address] [place] [address] JESUS MANUEL ARAUJO [place] [address] Insurance Providers Payer Name Policy Number Subscriber Name Relationship s Medicare [id number] Primitivo Yip 18 Self / Same As Patient Formerly [facility] Employee [facility] [id number] Primitivo Yip 18 Self / Same As Patient Chief Complaint and Reason for Visit Reason for Visit Bally-vesical fistula Prostate cancer UTI (urinary tract infection) Weakness Problems Active Problems Medical Problem Onset Date Status Bladder stone Unknown Acute C. difficile diarrhea Unknown Acute COPD (chronic obstructive pulmonary disease) Unknown Acute Bally-vesical fistula Unknown Acute Diarrhea Unknown Acute Falling Unknown Acute Fracture, rib Unknown Acute Nausea & vomiting Unknown Acute Pain Unknown Acute Prostate cancer Unknown Acute Recurrent UTI Unknown Acute Repeated falls Unknown Acute Swelling of face 01/09/2015 Acute UTI (urinary tract infection) Unknown Acute Weakness Unknown Acute Medications Current Home Medications Medication Dose Units Route Directions Days/Qty Instructions Start Date Aspirin 81 Mg 81 Mg Oral Daily @0901/09/15 Albuterol Sulfate 18 Gm 2 Puffs Inhalation [...] Mg Inhalation Three Times A Day 06/14/16 Niacin (Inositol Niacinate) 500 Mg 1 Cap Oral Daily @ Hs 06/14/16 Nitrofurantoin Monohyd/M-Cryst 100 Mg 100 Mg Oral Daily @0900 06/16/ 16 Metoprolol Tartrate 50 Mg 25 Mg Oral Daily @09 30 1/2 tab 06/16/16 Past Home Medications Medication Directions Ordered Status [...] Tablet, 50 Mg Oral Daily @0906/04/16 Discontinued Social History Query Response Start Date Stop Date Smoking Status Current every day smoker Hospital Discharge Instructions PHYSICIAN DISCHARGE ORDERS Homecare Instructions ACTIVITY ORDERS: Activity: Normal activity as carla DIET ORDERS: Diet: Regular Home Health: Home Health: [facility] [place] ON DISMISSAL Valuables returned on D/C Patient verifies return of all valuables on discharge: Yes Plan of Care Discharge Date 06/17/16 12:55pm Disposition HOME with HOME HEALTH SERVICES Instructions/Education Provided Urinary Tract Infection in Men (DC) Prescriptions See Medication Section Referrals Baljinder Vazquez MD (Urology) - SOON POSSIBLE Address: [address] [place] [address] Reason(s) for Referral: Bladder stone Recurrent UTI FLORENTINO ERICKSON DO (Medical) - IN 1 WEEK Address: [place] [place] [address] Reason(s) for Referral: Recurrent UTI Bladder stone Care Plan and Goals Functional Status No [...] Date/Time Height 6 ft 0 in Weight 136 lb Body Mass Index 18.6 kg/m^2 Ambulatory Vital Signs Vital Response Date/Time [...] 04/08/2016 9:23am 04/08/2016 9: 44am Urine Specific [place] 1.015 1.005-1.035 04/08/2016 9:23am 2015 9:44am Urine [...] 04/18/2016 12:30pm 04/18/2016 12: 58pm Urine Specific [place] 1.015 1.005-1.035 04/18/2016 12:30pm 2015 12:58pm Urine [...] NEW RANGE: 0.550-1.3 mg/dL BUN/Creatinine Ratio 15.53 1204/18/2016 12:40pm 04/18/2016 1: 06pm Sodium Level 121 [...] 04/29/2016 12:02pm 04/29/2016 12: 17pm Urine Specific [place] 1.020 1.005-1.035 04/29/2016 12:02pm 2015 12:17pm Urine [...] Urine Glucose (UA) NEGATIVE mg/dL NEGATIVE 05/12/2016 8:212015 9:49am Urine Bilirubin NEGATIVE NEGATIVE 05/12/2016 8:21am 05/12/2016 9: 49am Urine Ketones NEGATIVE mg/dL NEGATIVE 05/12/2016 8:21am 05/12/2016 9: 49am Urine Specific [place] 1.015 1.005-1.035 05/12/2016 8:21am 2015 9:49am Urine Occult Blood 2+ MODERATE H NEGATIVE 05/12/2016 8:21am 2015 9:49am Urine pH 7.0 05/12/2016 8:21am 05/12/2016 9:49am Urine Protein 1+ 30 mg/dL mg/dL H NEGATIVE 05/12/2016 8:2105/12/2016 9:49am Urine Urobilinogen 0.2 E.U./dL NORMAL 05/12/2016 8:2105/12/2016 9: 49am Urine Nitrate POSITIVE H NEGATIVE [...] Urine Culture (LAB) See Separate Report 05/12/2016 8:212015 1:40pm White Blood Count 7.66 K/mm3 4.5-10.5 [...] (%) (Auto) 17.9 % L 18-42 05/16/2016 6:05/16/2016 7: 07am Monocytes (%) (Auto) 10.4 % [...] 05/13/2016 4:30pm 05/13/2016 5: 34pm Urine Specific [place] 1.010 1.005-1.035 05/13/2016 4:30pm 2015 5:34pm Urine [...] 2:2015 3:16pm Urine Bilirubin NEGATIVE NEGATIVE 05/27/2016 2:1105/27/2016 3: 16pm Urine Ketones NEGATIVE mg/dL NEGATIVE 05/27/2016 2:05/27/2016 3: 16pm Urine Specific [place] 1.010 1.005-1.035 05/27/2016 2:112015 3:16pm Urine Occult Blood 2+ MODERATE H NEGATIVE 05/27/2016 2:2015 3:16pm Urine pH 7.0 05/27/2016 2:05/27/2016 3:16pm Urine Protein 1+ 30 mg/dL mg/dL [...] Urine Bacteria FEW /hpf H NONE 05/27/2016 2:05/27/2016 3:16pm Urine Culture Result 1 Growth detected [...] 06/15/2016 1:40pm 06/15/2016 2: 12pm Urine Specific [place] 1.015 1.005-1.035 06/15/2016 1:40pm 2015 2:12pm Urine [...] @ 24hrs NONE 06/15/2016 1:40pm 06/16 5:29pm Globulin 3.2 gm/dL 2.0-4.5 06/17/2016 6:20am 06/17/2016 7:22am Procedures No known history of procedures. Encounters Encounter Location Arrival/Admit Date Discharge/Depart Date Attending Provider Office Visit [facility] 06/23/16 3:00pm FLORENTINO ERICKSON DO Discharged Inpatient [facility] 06/14/16 9:50am 06/17/16 12:55pm FLORENTINO ERICKSON DO Registered Recurring [facility] 06/12/16 1:45pm FLORENTINO ERICKSON DO Office Visit [facility] 06/12/16 1:00pm FLORENTINO ERICKSON DO Registered Practice [facility] 06/12/16 1:00pm FLORENTINO ERICKSON DO Registered Clinic [facility] 05/28/16 10:52am FLORENTINO ERICKSON DO Office Visit [facility] 05/28/16 10:00am FLORENTINO ERICKSON DO Departed Clinic [facility] 05/27/16 2:11pm 05/27/16 11: 59pm FLORENTINO ERICKSON DO Discharged Inpatient [facility] 05/16/16 1:25pm 05/18/16 2 :40pm FLORENTINO ERICKSON DO Discharged Inpatient [facility] 05/13/16 1:05pm 05/16/16 1 :25pm FLORENTINO ERICKSON DO Office Visit [facility] 05/13/16 10:45am Micah Chen PA Departed Clinic [facility] 05/12/16 8:17am 05/12/16 11: 59pm Micah Chen PA Discharged Recurring [facility] 05/07/16 7:29am 06/05/16 11:59pm Micah Chen PA Discharged Recurring [facility] 05/04/16 7:26pm 05/06/16 11:59pm Micah Chen PA Registered Clinic [facility] 04/29/16 11:41am Micah Chen PA Office Visit [facility] 04/21/16 2:00pm Micah Chen PA Discharged Inpatient (obs) [facility] 04/18/16 1:50pm 6:00pm Librado Perales DO Departed Emergency Room [facility] 04/18/16 10:58am 1:50pm Librado Perales DO Office Visit [facility] 04/15/16 1:00pm Micah Chen Departed Clinic [facility] 04/15/16 12:26pm 04/15/16 11: 59pm Micah Chen Departed Clinic [facility] 04/08/16 11:18am 04/08/16 11: 59pm Riya Gallegos Departed Clinic [facility] 04/08/16 9:20am 04/08/16 11: 59pm Riya Gallegos Office Visit [facility] 04/08/16 8:30am Riya Gallegos Departed Clinic [facility] 03/24/16 8:54am 03/24/16 11: 59pm Micah Chen PA Departed Clinic [facility] 03/24/16 8:34am 03/24/16 11: 59pm Micah Chen PA Office Visit [facility] 03/24/16 8:30am Micah Chen PA Departed Clinic [facility] 01/16/16 2:37pm 01/16/16 11: 59pm Micah Chen PA Departed Clinic [facility] 01/16/16 2:24pm 01/16/16 11: 59pm Micah Chen PA Office Visit [facility] 01/16/16 2:15pm Micah Chen Departed Clinic [facility] 01/09/15 9:18am 01/09/15 11: 59pm Micah Chen PA Office Visit [facility] 01/09/15 8:45am Micah Chen PA Office Visit [facility] 03/16/11 10:00am Micah Chen PA Discharged Inpatient (obs) [facility] 02/28/11 2:00am 31/07 11:50am Johnathon Dallas MD Departed Emergency Room [facility] 02/28/11 12:46am 2:00am Johnathon Dallas MD Registered Surgical Day Care [facility] 10/12/07 1:46pm
--- OUTSIDE RECORDS SUMMARY | 2016-11-02 13:52 | XMS REPORT | Referral Summary ---
Author Author [facility] Organization [facility] Address Unknown Phone Unavailable Care Team Providers Care Welder Gas Tungsten Arc Name Role Phone James Allan Primary Care Physician [phone] Encounter VC Date(s): 03/31/16 - 03/31/16 [facility] [address] [place] [address] [facility] Discharge Diagnosis: Postablative hypothyroidism Discharge Disposition: 01-Home or Self Care Attending Physician: Swapnil Mills MD Admitting Physician: Swapnil Mills MD Referring Physician: Randolph Langston MD Vital Signs Most recent to 1 oldest [Reference Range]: Peripheral Pulse 80 bpm Rate [60-100 bpm] (03/31/16 3:18 PM) Blood Pressure 128/90 mmHg [90-140/60-90 mmHg] (03/31/16 3:18 PM) Problem List Condition Effective Dates Status Health Status Informant Hay fever(Confirmed) Resolved IBS(Confirmed) Resolved Obesity(Confirmed) Active patient Osteoarthritis(Confi Resolved rmed) Postablative Active hypothyroidism(Confi rmed) UTI(Confirmed) Resolved Varicella Resolved zoster(Confirmed) Allergies, Adverse Reactions, Alerts Substance Reaction Severity Status HYDROcodone Active Medications citalopram 10 mg oral [...] Synthroid 50 mcg (0.05 mg) oral tablet 50 mcg 1 tabs, Oral, Daily, # 90 tabs, 2 Refill(s), KALIE, Pharmacy: [facility] #[id number], 1 tabs Oral Daily Start Date: 10/04/15 Status: Ordered Vagifem 10 mcg vaginal tablet Vaginal, 2x/Wk, 0 Refill(s) Start Date: 02/24/14 Status: Ordered Results No data available for this section Immunizations No data available for this section Procedures No data available for this section Social History Social History Type Response Smoking Status Never smoker Assessment and Plan Extracted from: Title: Office Visit Note Author: Swapnil Mills MD Date: 03/31/16 Assessment/Plan 1.Postablative hypothyroidism Patient is clinically and biochemically euthyroid. Continue same Synthroid dose. Follow-up in one year. Repeat TSH and free T4 prior to next visit. Ordered: Free T4 TSH 3rd Generation
--- OUTSIDE RECORDS SUMMARY | 2016-11-02 13:52 | XMS REPORT | Referral Summary ---
Author Author [facility] Organization [facility] Address Unknown Phone Unavailable Care Team Providers Care Inspector Open Die Name Role Phone Jacob Allan Primary Care Physician [phone] Encounter VC Date(s): 03/07/15 - 03/07/15 [facility] [address] [place] [address] [facility] Discharge Diagnosis: Hypothyroid Discharge [...] 90 tabs, 9 Refill(s) , KALIE, eRx: [facility] #[id number], TAKE ONE TABLET BY MOUTH EVERY MORNING [...] hormone). This hormone tells the thyroid to stock turner more hormone. SYMPTOMS Lethargy (feeling as [...] 11/14/2012 Document Reviewed: ExitCare Patient Information 2014 [employer]. No follow up information was provided.
--- OUTSIDE RECORDS SUMMARY | 2016-11-02 13:52 | XMS REPORT | Continuity of Care Document ---
Author Author [facility] Organization [facility] Address Unknown Phone Unavailable Support Name Relationship Address Phone Micah Chen Caregiver [address] [place] [address] JESUS MANUEL ARAUJO [place] [address] Insurance Providers Payer Name Policy Number Subscriber Name Relationship Wps Medicare [id number] Primitivo Yip 18 Self / Same As Patient [employer] [id number] Primitivo Yip 18 Self / Same As [...] No hospital discharge instructions. Plan of Care Prescriptions See Medication Section Functional Status No [...] 02/28/2011 7:41am Blood Urea Nitrogen 7 mg/dL 7-02/28/2011 6:47am 02/28/2011 7:41am Creatinine 0.9 mg/dL 0.6-1.3 [...] 04/08/2016 9:23am 04/08/2016 9: 44am Urine Specific [place] 1.015 1.005-1.035 04/08/2016 9:23am 2015 9:44am Urine [...] 04/18/2016 12:30pm 04/18/2016 12: 58pm Urine Specific [place] 1.015 1.005-1.035 04/18/2016 12:30pm 2015 12:58pm Urine [...] 04/29/2016 12:02pm 04/29/2016 12: 17pm Urine Specific [place] 1.020 1.005-1.035 04/29/2016 12:02pm 2015 12:17pm Urine [...] Arrival/Admit Date Discharge/Depart Date Attending Provider Discharged Recurring [facility] 05/04/16 7:26pm 05/06/16 11:59pm Micah Chen Registered Clinic [facility] 04/29/16 11:41am Micah Chen Office Visit [facility] 04/21/16 2:00pm Micah Chen PA Registered Practice [facility] 04/21/16 2:00pm Micah Chen PA Discharged Inpatient (obs) [facility] 04/18/16 1:50pm 6:00pm Librado Perales DO Departed Emergency Room [facility] 04/18/16 10:58am 1:50pm Librado Perales DO Office Visit [facility] 04/15/16 1:00pm Micah Chen Departed Clinic [facility] 04/15/16 12:26pm 04/15/16 11: 59pm Micah Chen PA Departed Clinic [facility] 04/08/16 11:18am 04/08/16 11: 59pm Riya Gallegos Departed Clinic [facility] 04/08/16 9:20am 04/08/16 11: 59pm Riya Gallegos Office Visit [facility] 04/08/16 8:30am Riya Gallegos Departed Clinic [facility] 03/24/16 8:54am 03/24/16 11: 59pm Micah Chen PA Departed Clinic [facility] 03/24/16 8:34am 03/24/16 11: 59pm Micah Chen PA Office Visit [facility] 03/24/16 8:30am Micah Chen PA Departed Clinic [facility] 01/16/16 2:37pm 01/16/16 11: 59pm Micah Chen PA Departed Clinic [facility] 01/16/16 2:24pm 01/16/16 11: 59pm Micah Chen PA Office Visit [facility] 01/16/16 2:15pm Micah Chen PA Departed Clinic [facility] 01/09/15 9:18am 01/09/15 11: 59pm Micah Chen PA Office Visit [facility] 01/09/15 8:45am Micah Chen PA Office Visit [facility] 03/16/11 10:00am Micah Chen PA Discharged Inpatient (obs) [facility] 02/28/11 2:00am 31/07 11:50am Johnathon Dallas MD Departed Emergency Room [facility] 02/28/11 12:46am 2:00am Johnathon Dallas MD Registered Surgical Day Care [facility] 10/12/07 1:46pm
--- OUTSIDE RECORDS SUMMARY | 2016-11-02 13:53 | XMS REPORT | Continuity of Care Document ---
Author Author [facility] Organization [facility] Address Unknown Phone Unavailable Care Team Providers Care Lithograph Press Feeder Name Role Phone FLORENTINO ERICKSON DO Primary Care Physician [phone] Insurance Providers Payer Name Policy Number Subscriber Name Relationship s Medicare [id number] Primitivo Yip 18 Self / Same As Patient [facility] [employer] Employee [facility] [id number] Primitivo Yip 18 Self / Same As Patient Chief Complaint and Reason for Visit Chief Complaint Male Urogenital Problems Reason for Visit Sepsis Urinary tract infection [id number] Problems Active Problems Medical Problem Onset Date Status Bladder stone Unknown Acute C. 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 to c/o Dr. Butler via EMS Functional [...] 04/08/2016 9:23am 04/08/2016 9: 44am Urine Specific [place] 1.015 1.005-1.035 04/08/2016 9:23am 2015 9:44am Urine [...] 04/18/2016 12:30pm 04/18/2016 12: 58pm Urine Specific [place] 1.015 1.005-1.035 04/18/2016 12:30pm 2015 12:58pm Urine [...] 04/29/2016 12:02pm 04/29/2016 12: 17pm Urine Specific [place] 1.020 1.005-1.035 04/29/2016 12:02pm 2015 12:17pm Urine [...] 05/12/2016 8:21am 05/12/2016 9: 49am Urine Specific [place] 1.015 1.005-1.035 05/12/2016 8:21am 2015 9:49am Urine [...] 05/13/2016 4:30pm 05/13/2016 5: 34pm Urine Specific [place] 1.010 1.005-1.035 05/13/2016 4:30pm 2015 5:34pm Urine [...] NEGATIVE 05/27/2016 2:1105/27/2016 3: 16pm Urine Specific [place] 1.010 1.005-1.035 05/27/2016 2:112015 3:16pm Urine Occult [...] 06/15/2016 1:40pm 06/15/2016 2: 12pm Urine Specific [place] 1.015 1.005-1.035 06/15/2016 1:40pm 2015 2:12pm Urine [...] 9: 44am CALLED TO THANH WELCH @ 0946 BY JASON Red Blood Count 3.47 M/mm3 [...] Discharge/Depart Date Attending Provider Departed Emergency Room [facility] 06/22/16 9:15am 12:25pm Riya Gallegos Departed Emergency Room [facility] 06/20/16 2:49pm 4:22pm Johnathon Dallas MD Discharged Inpatient [facility] 06/14/16 9:50am 06/17/16 12:55pm FLORENTINO ERICKSON DO Discharged Recurring [facility] 06/12/16 1:45pm 07/06/16 11:59pm FLORENTINO ERICKSON DO Office Visit [facility] 06/12/16 1:00pm FLORENTINO ERICKSON DO Registered Practice [facility] 06/12/16 1:00pm FLORENTINO ERICKSON DO Registered Clinic [facility] 05/28/16 10:52am FLORENTINO ERICKSON DO Office Visit [facility] 05/28/16 10:00am FLORENTINO ERICKSON DO Departed Clinic [facility] 05/27/16 2:11pm 05/27/16 11: 59pm FLORENTINO ERICKSON DO Discharged Inpatient [facility] 05/16/16 1:25pm 05/18/16 2 :40pm FLORENTINO ERICKSON DO Discharged Inpatient [facility] 05/13/16 1:05pm 05/16/16 1 :25pm FLORENTINO ERICKSON DO Office Visit [facility] 05/13/16 10:45am Micah Chen PA Departed Clinic [facility] 05/12/16 8:17am 05/12/16 11: 59pm Micah Chen PA Discharged Recurring [facility] 05/07/16 7:29am 06/05/16 11:59pm Micah Chen PA Discharged Recurring [facility] 05/04/16 7:26pm 05/06/16 11:59pm Micah Chen PA Registered Clinic [facility] 04/29/16 11:41am Micah Chen PA Office Visit [facility] 04/21/16 2:00pm Micah Chen PA Discharged Inpatient (obs) [facility] 04/18/16 1:50pm 6:00pm Librado Perales DO Departed Emergency Room [facility] 04/18/16 10:58am 1:50pm Librado Perales DO Office Visit [facility] 04/15/16 1:00pm Micah Chen PA Departed Clinic [facility] 04/15/16 12:26pm 04/15/16 11: 59pm Micah Chen PA Departed Clinic [facility] 04/08/16 11:18am 04/08/16 11: 59pm Riya Gallegos Departed Clinic [facility] 04/08/16 9:20am 04/08/16 11: 59pm Riya Gallegos Office Visit [facility] 04/08/16 8:30am Riya Gallegos Departed Clinic [facility] 03/24/16 8:54am 03/24/16 11: 59pm Micah Chen PA Departed Clinic [facility] 03/24/16 8:34am 03/24/16 11: 59pm Micah Chen PA Office Visit [facility] 03/24/16 8:30am Micah Chen PA Departed Clinic [facility] 01/16/16 2:37pm 01/16/16 11: 59pm Micah Chen PA Departed Clinic [facility] 01/16/16 2:24pm 01/16/16 11: 59pm Micah Chen PA Office Visit [facility] 01/16/16 2:15pm Micah Chen PA Departed Clinic [facility] 01/09/15 9:18am 01/09/15 11: 59pm Micah Chen PA Office Visit [facility] 01/09/15 8:45am Micah Chen PA Office Visit [facility] 03/16/11 10:00am Micah Chen PA Discharged Inpatient (obs) [facility] 02/28/11 2:00am 31/07 11:50am Johnathon Dallas MD Departed Emergency Room [facility] 02/28/11 12:46am 2:00am Johnathon Dallas MD Registered Surgical Day Care [facility] 10/12/07 1:46pm Recent Diagnosis
--- OUTSIDE RECORDS SUMMARY | 2016-11-02 13:53 | XMS REPORT | Continuity of Care Document ---
Author Author [facility] Organization [facility] Address Unknown Phone Unavailable Support Name Relationship Address Phone Micah Chen Caregiver [address] [place] [address] SOHAIL KATARINA Next Of Kin [address] [place], [place] [address] Insurance Providers Payer Name Policy Number Subscriber Name Relationship s Medicare [id number] Primitivo Yip 18 Self / Same As Patient [employer] [id number] Primitivo Yip 18 Self / Same As [...] Date Discharge/Depart Date Attending Provider Departed Clinic [facility] 01/16/16 2:37pm 01/16/16 11: 59pm Micah Chen Office Visit [facility] 01/16/16 2:15pm Micah Chen PA Registered Practice [facility] 01/16/16 2:15pm Micah Chen Departed [facility] 01/09/15 9:18am 01/09/15 11: 59pm Micah Chen Office Visit [facility] 01/09/15 8:45am Micah Chen PA Office Visit [facility] 03/16/11 10:00am Micah Chen Discharged Inpatient (obs) [facility] 02/28/11 2:00am 31/07 11:50am Johnathon Dallas MD Departed Emergency Room [facility] 02/28/11 12:46am 2:00am Johnathon Dallas MD Registered Surgical Day Care [facility] 10/12/07 1:46pm
--- OUTSIDE RECORDS SUMMARY | 2016-11-02 13:53 | XMS REPORT | Continuity of Care Document ---
Author Author [facility] Organization [facility] Address Unknown Phone Unavailable Support Name Relationship Address Phone Librado Perales DO Caregiver [address] [place] [address] KATARINA YIP Next Of Kin [address] [place], [place] [address] Insurance Providers Payer Name Policy Number Subscriber Name Relationship s Medicare [id number] Primitivo Yip 20 Self / Same As Patient [facility] [employer] Employee [facility] [id number] Primitivo Yip 20 Self / Same As [...] Mg 500 Mg Oral Twice A Day 04/15/16 Tramadol Hcl 50 Mg 50 Mg Oral Three Times A Day as needed for Pain 04/16/16 Ondansetron 4 Mg 4 Mg Oral Every 6 Hours for Nausea 04/16/16 Past Home Medications Medication Directions Ordered [...] 1 Each Oral Twice A Day Discontinued Hydrocodone/Acetaminophen 5/325 1 Each Tablet, 1 Tab Oral Every 6 Hours as needed for Pain 04/15/16 Discontinued Social History No social history. Hospital [...] 04/08/2016 9:23am 04/08/2016 9: 44am Urine Specific [place] 1.015 1.005-1.035 04/08/2016 9:23am 2015 9:44am Urine [...] 04/18/2016 12:30pm 04/18/2016 12: 58pm Urine Specific [place] 1.015 1.005-1.035 04/18/2016 12:30pm 2015 12:58pm Urine [...] U/L 46-116 04/18/2016 12:40pm 04/18/2016 1: 06pm Globulin 3.8 gm/dL 2.0-4.5 04/18/2016 12:40pm 04/18/2016 1:06pm Procedures No known history of procedures. Encounters Encounter Location Arrival/Admit Date Discharge/Depart Date Attending Provider Admitted Inpatient (obs) [facility] 04/18/16 1:50pm Librado Perales DO Registered Emergency Room [facility] 04/18/16 10:58am Librado Perales DO Office Visit [facility] 04/15/16 1:00pm Micah Chen PA Registered Practice [facility] 04/15/16 1:00pm Micah Chen Registered Clinic [facility] 04/15/16 12:26pm Micah Chen Departed Clinic [facility] 04/08/16 11:18am 04/08/16 11: 59pm Riay Gallegos Departed Clinic [facility] 04/08/16 9:20am 04/08/16 11: 59pm Riya Gallegos Office Visit [facility] 04/08/16 8:30am Riya Gallegos Departed Clinic [facility] 03/24/16 8:54am 03/24/16 11: 59pm Micah Chen Departed Clinic [facility] 03/24/16 8:34am 03/24/16 11: 59pm Micah Chen PA Office Visit [facility] 03/24/16 8:30am Micah Chen PA Departed Clinic [facility] 01/16/16 2:37pm 01/16/16 11: 59pm Micah Chen Departed Clinic [facility] 01/16/16 2:24pm 01/16/16 11: 59pm Micah Chen PA Office Visit [facility] 01/16/16 2:15pm Micah Chen Departed Clinic [facility] 01/09/15 9:18am 01/09/15 11: 59pm Micah Chen Office Visit [facility] 01/09/15 8:45am Micah Chen Office Visit [facility] 03/16/11 10:00am Micah Chen PA Discharged Inpatient (obs) [facility] 02/28/11 2:00am 31/07 11:50am Johnathon Dallas MD Departed Emergency Room [facility] 02/28/11 12:46am 2:00am Johnathon Dallas MD Registered Surgical Day Care [facility] 10/12/07 1:46pm Recent Diagnosis Nausea & vomiting Pain Prostate cancer Repeated falls Swelling of face UTI (urinary tract infection)
--- NOTE | 2016-11-02 13:59 | ERPDOC ---
Departure Disposition Decision Date: Nov 02, 2016 Disposition Decision Time: 14:48 Disposition: 01 DISCHARGED HOME, SELF-CARE Impression Impression Impression: Primary Impression: Fall on same level Encounter type: initial encounter Qualified Codes: W18.30XA - Fall on same level, unspecified, initial encounter Additional Impressions: Forehead laceration Encounter type: initial encounter Qualified Codes: S01.81XA - Laceration without foreign body of other part of head, initial encounter Skin tear of right hand without complication Encounter type: initial encounter Qualified Codes: S61.411A - Laceration without foreign body of right hand, initial encounter Severity: Moderate Condition: Stable Seen By: Physician only Patient Instructions: Fall Prevention (ED), Laceration (ED) Problems/Meds/Labs Reviewed?: Yes Medications reviewed and manag: Yes Additional Instructions: Sutures out in 7 days Follow up care ordered?: Yes Mental Status: Alert, Oriented HPI - Fall/Injury General Chief Complaint: Fall Stated Complaint: FELL HEAD INJURY, LACERATION ACROSS FORHEAD Time Seen by Provider: 13:58 Source: patient Exam Limitations: no limitations HPI - Fall/Injury Initial Comments Patient is an 89-year-old male presents emergency room for evaluation post fall. Patient was over at the wound care center when patient fell striking head on the ground. Patient appeared to be deadweight at that time, however currently arrived alert and oriented no real complaint. Patient does sustain a laceration above his right eye and skin tear to his right hand no active bleeding currently Allergies: Coded Allergies: Penicillins (Verified Allergy, Unknown, 11/02/16) Past History Past Medical History Cardiac: CHF Respiratory: COPD Social History Smoking Status: Never smoker Substance Use Type: does not use Alcohol Intake: none Review of Systems Constitutional Constitutional: DENIES: appetite decrease, chills, dizziness, fever, weakness Eyes Vision: DENIES: blurring, double vision, loss of visual musa ENMT Sinuses: DENIES: congestion, rhinorrhea Mouth/Throat: DENIES: scratchy throat, sore throat Cardiovascular Cardiac: DENIES: chest pain, dyspnea on exertion Pulmonary Respiratory: DENIES: cough, dyspnea, sputum, tachypnea GI Upper Abdomen: DENIES: nausea, pain, vomiting Lower Abdomen: DENIES: constipation, diarrhea, pain General: DENIES: frequency, urgency Musculoskeletal General: DENIES: cramps, pain, weakness Integumentary Skin: see HPI, DENIES: color change, itching, rash Neurological General: DENIES: change in strength, headache, numbness, weakness Physical Exam General General Nourishment: well nourished, well developed General Body Habitus: well groomed Vitals and Pain Weight: Kilograms: 55.000 Height (feet): 6 Height (inches): 1.00 Triage Pain Scale: RN VS reviewed by Provider: Yes Eyes (brief) Eyes Brief: found: EOMI, PERRL, trauma (patient does have a 2.0 cm laceration above right eyebrow no active bleeding) ENMT (brief) ENMT Brief: FOUND: TM clear, TM good light reflex, ear canals clear, normal dentition, NOT FOUND: nasal erythema, nasal exudate, nasal swelling Neck (brief) Neck: NOT FOUND: adenopathy, spasm, tenderness Respiratory (brief) Respiratory: FOUND: clear all musa, equal bilaterally, NOT FOUND: rales, wheezes Cardiovascular (brief) Cardiac: FOUND: regular rate, regular rhythm Capillary Refill: <2 sec Abdomen (brief) Abdominal Brief: FOUND: bowel normo active x4, soft, NOT FOUND: tender Lymphatic (brief) Lymphatic Brief: NOT FOUND: adenopathy Musculoskeletal (brief) Musculoskeletal Brief: NOT FOUND: spasm, tenderness Integumentary (brief) Integumentary Brief: FOUND: dry, pink, rash (patient does have a small skin tear on the right hand), warm Neurologic (brief) Neurological Brief: FOUND: CN w/o gross def to obs, motor-no gross deficits, sensory-no gross deficits Psychiatric (brief) Psychiatric Brief: FOUND: alert, oriented Differential Diagnoses Considering: Concussion, Contusion, Epidural Hematoma, Fracture, Subdural Hematoma, Other (laceration) Procedures Procedures Performed Procedures Performed: Laceration Repair Laceration/Wound Repair Wound/Laceration Repair : Wound Location: face Wound Length (cm): 2 Depth, Shape: superficial, linear Explored: clean Prep: hibiclens Anesthesia: 1% Lidocaine Volume Anesthetic (ccs): 3 Type of Block: local Repaired With: Sutures Suture Size: 5:0 Suture Type: prolene Number of Sutures: 5 Progress Results/Orders Orders Procedure Category Date Status Time Tetanus + Diphtheria PHA 11/02/16 Complete Toxoid (Tenivac) 14:15 Lidocaine 1% / Epi PHA 11/02/16 Complete 1:100,000 (Xylocaine 14:15 Ct Head W/O Contrast CT 11/02/16 Resulted 14:03 Neomycin/Polymyxin/Bacitracin PHA 11/02/16 Complete (Neosporin 15:00 Acetaminophen PHA 11/02/16 Complete (Tylenol Regular 15:00 Medications Current ED Medications Tetanus/ Diphtheria Toxoids Adsorbed (Tenivac) 0.5 ml O ONCE IM Last administered on 11/02/16 14:30; Start 11/02/16 at 14:15; Stop 11/02/16 at 14:16 ; Status DC Lidocaine/ Epinephrine (Xylocaine 1%/ Epi 1:100,000) 20 ml O ONCE SQ Last administered on 11/02/16 14:15; Start 11/02/16 at 14:15; Stop 11/02/16 at 14:16 ; Status DC Neomycin/ Polymyxin/ Bacitracin (Neosporin) 1 applic O ONCE TOP Last administered on 11/02/16 15:00; Start 11/02/16 at 15:00; Stop 11/02/16 at 15:01 ; Status DC Acetaminophen (Tylenol Regular Strength) 650 mg O ONCE PO Last administered on 11/02/16 15:00; Start 11/02/16 at 15:00; Stop 11/02/16 at 15:01; Status DC CT CT : CT: Head no contrast Interpretation: Normal, Reviewed Written Report SAVI LEACH MD Nov 02, 2016 13:58
--- NOTE | 2016-11-02 14:01 | NUR ---
PROVIDER PROVIDER IN ROOM
[2016-11-02] MEDS ORDERED: IPRA3AMP AEROSOL (14:09)
[2016-11-02] MEDS ORDERED: BUDE0.5A6 AEROSOL (14:13)
[2016-11-02] MEDS ORDERED: [UNRECOGNIZED DRUG - CODE] AEROSOL (14:13)
[2016-11-02] MEDS ORDERED: CITA20TA9 PO (14:14)
[2016-11-02] MEDS ORDERED: LIDOCAINE 1%/EPI 1:100,000 20ml MDV SQ ONE (14:15)
[2016-11-02] MEDS ORDERED: TETANUS + DIPHTHERIA (Td)(Adult) 0.5ml SYRINGE IM ONE (14:15)
[2016-11-02] MEDS ORDERED: HYDR-4246 PO (14:17)
[2016-11-02] MEDS ORDERED: FERR324T4 PO (14:17)
[2016-11-02] MEDS ORDERED: GUAI-782 PO ×2 (14:20)
[2016-11-02] MEDS ORDERED: ALBU18HF2 ORAL INH (14:20)
[2016-11-02] MEDS ORDERED: ASPI-557 PO (14:20)
[2016-11-02] MEDS ORDERED: LORA0.5T2 PO (14:24)
[2016-11-02] MEDS ORDERED: ARGI1POW13 PO (14:24)
[2016-11-02] MEDS ORDERED: OMEP20CA10 PO (14:24)
[2016-11-02] MEDS ORDERED: DEXT15DR5 BOTH EYES (14:24)
[2016-11-02] MEDS ORDERED: ACET325T51 PO (14:24)
[2016-11-02] MEDS ORDERED: [UNRECOGNIZED DRUG - CODE] PO (14:25)
--- NOTE | 2016-11-02 14:29 | DI ---
Indication: ITS.REASON: fall, laceration over left eye PROCEDURE: CT HEAD W/O CONTRAST: Encounter: Initial Comparison: None Technique: Axial CT images through the head were performed without contrast. Iterative Reconstruction dose reducing technique was utilized. FINDINGS: There is a probable laceration above the patient's left orbit. The ventricles are of normal size, shape, and contour for the patient's age. There are scattered areas of low attenuation in the white matter which most likely represent changes from chronic microvascular ischemia. The brainstem, cerebellum, and cerebral hemispheres otherwise have a normal morphology and CT attenuation. There is no evidence of midline displacement. No hemorrhage, signs of acute territorial stroke, mass effect, mass lesions, or edema is evident. The visualized portions of the skull base, midface, and calvarium demonstrate no abnormality. The paranasal sinuses are well aerated and free of significant disease. The tympanic and mastoid cavities appear normal. IMPRESSION: No acute intracranial abnormality or hemorrhage. .
[2016-11-02] MEDS ORDERED: ACETAMINOPHEN 325 MG TABLET PO ONE (15:00)
[2016-11-02] MEDS ORDERED: NEOMYCIN/POLYM/BACITR OINT PACKET TOP ONE (15:00)
[2016-11-02 15:04] VITALS: BP 112/62; PULSE 81; RESP 18; TEMP 97.5; O2SAT 94
--- NOTE | 2016-11-02 15:04 | NUR ---
DEPART VERBAL AND WRITTEN DISCHARGE INSTRUCTIONS GIVEN AND UNDERSTOOD. CONDITION STABLE. RELEASED VIA WHEELCHAIR WITH STAFF.
--- OUTSIDE RECORDS SUMMARY | 2016-11-02 16:16 | XMS REPORT | Continuity of Care Document ---
Author Author [facility] Address Unknown Phone Unavailable Allergies Active [...] Status Pt. Type Provider Facility Loc./Unit Complaint [id number] 03/11/2016 15:42:59 03/11/2016 23: 59:59 [facility] Outpatient Florencio Sung [id number] 03/04/2016 09:09:18 03/04/2016 23: 59:59 [facility] Outpatient Florencio Sung [id number] 12/04/2015 09:06:51 12/04/2015 23: 59:59 [facility] Outpatient Florencio Sung [id number] 06/11/2015 09:35:09 06/11/2015 23: 59:59 [facility] Outpatient Florencio Sung [id number] 06/07/2015 09:06:52 06/07/2015 23: 59:59 [facility] Outpatient Florencio Sung [id number] 12/10/2014 11:05:54 12/10/2014 23: 59:59 [facility] Outpatient Juan Carlos Sanabria [id number] 12/03/2014 09:18:16 12/03/2014 23: 59:59 [facility] Outpatient Juan Carlos Sanabria [id number] 06/11/2014 11:04:13 06/11/2014 23: 59:59 [facility] Outpatient Juan Carlos Sanabria [id number] 04/26/2014 08:49:57 04/26/2014 23: 59:59 [facility] Outpatient Juan Carlos Sanabria [id number] 04/18/2014 08:55:23 04/18/2014 23: 59:59 [facility] Outpatient Juan Carlos Sanabria [id number] 09/27/2013 11:50:20 09/27/2013 23: 59:59 [facility] Outpatient Juan Carlos Sanabria [id number] 09/08/2013 10:03:37 09/08/2013 23: 59:59 [facility] Outpatient Juan Carlos Sanabria [id number] 03/13/2013 09:21:59 03/13/2013 23: 59:59 [facility] Outpatient Juan Carlos Sanabria [id number] 03/06/2013 09:06:43 03/06/2013 23: 59:59 [facility] Outpatient Juan Carlos Sanabria
--- OUTSIDE RECORDS SUMMARY | 2016-11-02 16:20 | XMS REPORT | Continuity of Care Document ---
Author Author [employer] [facility] Address Unknown Phone Unavailable Allergies Active [...] Status Pt. Type Provider Facility Loc./Unit Complaint [id number] 03/11/2016 15:42:59 03/11/2016 23: 59:59 [facility] Outpatient Florencio Sung [id number] 03/04/2016 09:09:18 03/04/2016 23: 59:59 [facility] Outpatient Florencio Sugn [id number] 12/04/2015 09:06:51 12/04/2015 23: 59:59 [facility] Outpatient Florencio Sung [id number] 06/11/2015 09:35:09 06/11/2015 23: 59:59 [facility] Outpatient Florencio Sung [id number] 06/07/2015 09:06:52 06/07/2015 23: 59:59 [facility] Outpatient Florencio Sung [id number] 12/10/2014 11:05:54 12/10/2014 23: 59:59 [facility] Outpatient Juan Carlos Sanabria [id number] 12/03/2014 09:18:16 12/03/2014 23: 59:59 [facility] Outpatient Juan Carlos Sanabria [id number] 06/11/2014 11:04:13 06/11/2014 23: 59:59 [facility] Outpatient Juan Carlos Sanabria [id number] 04/26/2014 08:49:57 04/26/2014 23: 59:59 [facility] Outpatient Juan Carlos Sanabria [id number] 04/18/2014 08:55:23 04/18/2014 23: 59:59 [facility] Outpatient Juan Carlos Sanabria [id number] 09/27/2013 11:50:20 09/27/2013 23: 59:59 [facility] Outpatient Juan Carlos Sanabria [id number] 09/08/2013 10:03:37 09/08/2013 23: 59:59 [facility] Outpatient Juan Carlos Sanabria [id number] 03/13/2013 09:21:59 03/13/2013 23: 59:59 [facility] Outpatient Juan Carlos Sanabria [id number] 03/06/2013 09:06:43 03/06/2013 23: 59:59 [facility] Outpatient Juan Carlos Sanabria
== END 2016-11-02 15:04 | disposition home or self-care (01) ==
LOC: ED 13:32
DX: S01.81XA Laceration without foreign body of other part of head, initial encounter (principal); S61.411A Laceration without foreign body of right hand, initial encounter; W18.30XA Fall on same level, unspecified, initial encounter; Y93.89 Activity, other specified; Y92.538 Other ambulatory health services establishments as the place of occurrence of the external cause; Y99.8 Other external cause status
CPT/HCPCS: 12011; 70450; 90471; 90714; 99283; A9270

== ENCOUNTER → 2016-11-11 | Outpatient (CLI) | payer MEDICARE ==
[~2016-11-11] MED LIST: ACET325T51 PO; ALBU18HF2 ORAL INH; ARGI1POW13 PO; ASPI-557 PO; BUDE0.5A6 AEROSOL; CITA20TA9 PO; DEXT15DR5 BOTH EYES; FERR324T4 PO; GUAI-782 PO; HYDR-4246 PO; IPRA3AMP AEROSOL; LORA0.5T2 PO; OMEP20CA10 PO; [UNRECOGNIZED DRUG - CODE] AEROSOL; [UNRECOGNIZED DRUG - CODE] PO
== END ==
LOC: NWCC 13:17
PROVIDERS: ATTEND Internal Medicine
DX: L89.153 Pressure ulcer of sacral region, stage 3 (principal); Z87.898 Personal history of other specified conditions
CPT/HCPCS: 11042; A6209

== ENCOUNTER → 2016-11-23 | Outpatient (CLI) | payer MEDICARE, OTHER | LOC: NWCC 10:20 | PROVIDERS: ATTEND Internal Medicine | DX: L89.153 Pressure ulcer of sacral region, stage 3 (principal); Z87.898 Personal history of other specified conditions | CPT/HCPCS: 11042; A6209 ==

== ENCOUNTER → 2016-12-09 | Outpatient (CLI) | payer MEDICARE, OTHER ==
[~2016-12-09] MED LIST changes: +CALMOSEPTINE OINTMENT 3.5 G PACKET TOP ONE; +SALINE FLUSH 10ml SYRINGE IVF ONE
== END ==
LOC: NWCC 09:41
PROVIDERS: ATTEND Internal Medicine
DX: L89.153 Pressure ulcer of sacral region, stage 3 (principal); Z87.898 Personal history of other specified conditions
CPT/HCPCS: 11042; A6021; A6209; A9270